=== PATIENT | male | born 1960 | race Caucasian/White ===

== ENCOUNTER 2021-11-11 11:12 | Outpatient (REF) | payer OTHER, SELFPAY | END 2021-11-11 11:13 | disposition home or self-care (01) | LOC: HO.BBR 11:12 | PROVIDERS: PCP Family Medicine; Visit Provider Urology | DX: D45 Polycythemia vera (principal) | CPT/HCPCS: 85018; 99195 ==

== ENCOUNTER 2022-02-03 10:53 | Outpatient (REF) | payer OTHER, SELFPAY | END 2022-02-03 10:54 | disposition home or self-care (01) | LOC: HO.BBR 10:53 | PROVIDERS: Visit Provider Urology | DX: D45 Polycythemia vera (principal) | CPT/HCPCS: 85018; 99195 ==

== ENCOUNTER 2022-05-06 11:01 | Outpatient (REF) | payer OTHER, SELFPAY | END 2022-05-06 11:02 | disposition home or self-care (01) | LOC: HO.BBR 11:01 | PROVIDERS: Visit Provider Urology | DX: D45 Polycythemia vera (principal) | CPT/HCPCS: 85018; 99195 ==

== ENCOUNTER 2022-07-28 10:58 | Outpatient (REF) | payer OTHER, SELFPAY | END 2022-07-28 10:59 | disposition home or self-care (01) | LOC: HO.BBR 10:58 | PROVIDERS: Visit Provider Urology | DX: D45 Polycythemia vera (principal) | CPT/HCPCS: 85014; 85018; 99195 ==

== ENCOUNTER 2022-10-28 11:04 | Outpatient (REF) | payer OTHER, SELFPAY | END 2022-10-28 11:05 | disposition home or self-care (01) | LOC: HO.BBR 11:04 | PROVIDERS: Visit Provider Urology | DX: D45 Polycythemia vera (principal) | CPT/HCPCS: 85014; 85018; 99195 ==

== ENCOUNTER 2023-08-28 09:01 | Outpatient (REF) | payer MEDICARE, SELFPAY | END 2023-08-28 09:02 | disposition home or self-care (01) | LOC: HO.BBR 09:01 | PROVIDERS: PCP Family Medicine; Visit Provider Nurse Practitioner Family | DX: D45 Polycythemia vera (principal) | CPT/HCPCS: 85018; 99195 ==

== ENCOUNTER 2023-11-26 08:51 | Outpatient (REF) | payer MEDICARE, SELFPAY | END 2023-11-26 08:52 | disposition home or self-care (01) | LOC: HO.BBR 08:51 | PROVIDERS: PCP Family Medicine; Visit Provider Nurse Practitioner Family | DX: D45 Polycythemia vera (principal) | CPT/HCPCS: 85014; 85018; 99195 ==

== ENCOUNTER 2024-03-22 09:03 | Outpatient (REF) | payer MEDICARE, SELFPAY | END 2024-03-22 09:04 | disposition home or self-care (01) | LOC: HO.BBR 09:03 | PROVIDERS: PCP Family Medicine; Visit Provider Nurse Practitioner Family | DX: D45 Polycythemia vera (principal) | CPT/HCPCS: 85018 ==

== ENCOUNTER 2024-06-20 09:03 | Outpatient (REF) | payer MEDICARE, SELFPAY | END 2024-06-20 09:04 | disposition home or self-care (01) | LOC: HO.BBR 09:03 | PROVIDERS: PCP Family Medicine; Visit Provider Nurse Practitioner Family | DX: D45 Polycythemia vera (principal) | CPT/HCPCS: 85018 ==

== ENCOUNTER 2024-09-30 09:52 | Outpatient (REF) | payer MEDICARE, SELFPAY ==
--- OUTSIDE RECORDS SUMMARY | 2024-09-30 11:03 | XMS_ITS | Data Portability ---
Author Organization [place] [facility] [place] Address [address] [place] [address] Care Team Providers Care Hearse Driver Name Role Phone BEAU ORDONEZ Referring Provider [phone] BEAU ORDONEZ Primary Care Provider Assessment Encounter Date Assessment Date Assessment LastModified by Organization Details LastModified Time 07/07/2023 07/07/2023 This is a 62-yea r-old male comes in with a 1 week history of right knee pain with going up stairs clinically he is overall unremarkable Differential diagnosis includes the following; 1. Meniscus tear 2. Patellofemoral syndrome 3. 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 I had a lengthy discussion with the patient regarding management which includes rest, nonsteroidal anti-inflammatories, plus or minus physical therapy versus oral glucocorticosteroids versus cortisone injection. Patient opted for the following; 1. Cortisone injection of the right knee. After verbal consent was managed by the patient. The procedure was then carried out on the right knee. He tolerated the procedure well. Aftercare instructions were discussed in detail. I would like to reevaluate him within the next 6 weeks. If his symptoms do not improve or worsen he is instructed to contact my office immediately. We will consider advanced imaging if indicated. He agrees with this plan. Patient was seen and evaluated by Brayan Vicente PA-C in indirect conjuction with Documenting Provider: Maco Grimm MD . He/She agrees with history, physical examination, tests/diagnostic imaging, and treatment plan. Additional treatment plan discussed with the patient (only initiated if in boldface font) otherwise not applicable. Treatment may include the following; - Provider focused nonsteroidal anti-inflammatory regimen (discussed were the pros, cons, benefits and risks as well as any black box warnings) in patients over 60 years old they should be very cautious in taking these medications due to potential decreased kidney function and or elevated blood pressure. - Analgesic pain medication for pain suppression (discussed were the pros, cons, benefits and risks as well as any black box warnings) - The use of topical pain relieving medication were discussed - The use of ice to decrease inflammation and pain - The use of assistive ambulatory devices for ambulation and fall prevention - Formal specific guided physical therapy program I reviewed my findings at length with the patient today. ??We discussed the nature and etiology of this problem along with current treatment options. We discussed the expected course and outcomes and what to expect. We also discussed risks and benefits. ?? All of their questions were answered today, and there was exhibited understanding and comprehension of all that was discussed. Time Spent: 10 minutes were spent reviewing previous imaging and charting. ??10 minutes were spent obtaining patient history. ??5 minutes were spent on physical exam. ??5??minutes were spent explaining diagnosis and assessment. Today's documentation was made using voice recognition software. This note may contain grammatical errors secondary to the software. Not available 07/08/2023 07:53:01 Plan of Treatment Reminders Order Date Submit Date Provider Last Modified By Organization Details Last Modified Time Details Appointments None recorded. Lab None recorded. Referral None recorded. Procedures None recorded. Surgeries None recorded. Imaging None recorded. Medication Orders lidocaine (PF) 100 mg/5 mL (2 %) injection syringe 2022 023 Not available 3 16:08:52 Kenalog 40 mg/mL suspension for injection 2022 023 [facility] [address], [address], [place], [address], 3 07:56:30 lidocaine (PF) 10 mg/mL (1 %) injection solution 2022 023 [facility] [address], [address], [place], [address], 3 07:56:29 Patient TargetsNo targets recorded. Patient Instructions Encounter Date Encounter Id Patient Instructions Last Modified By Organization Details Last Modified Time 07/07/2023 [id number] You have been provided with a cortisone injection in order to reduce the pain and inflammation that you are experiencing. The injection consists of two medications. Cortisone (an anti-inflammatory that will take 48-72 hours to take effect) and Lidocaine (a numbing agent that will last 2-3 hours). Please note that not everyone will have a lasting response following the injection. PATIENT INSTRUCTIONS Once the Lidocaine wears off, you may have an increase in your pain. I recommend icing the affected area for 20 minutes 3-4 times per day. It is recommended that you refrain from any high level activities using the joint or limb that was injected for approximately 24-48 hours. Normal day-to-day activities are generally not a problem. POSSIBLE SIDE EFFECTS Individuals with dark complexions may experience some skin discoloration locally at the site of the injection. There is the possibility of an increase in discomfort within 48 hours following the injection. This is called a ? flare? . To help minimize the chances of this, please see the post-injection instructions above. There is a less than 1% chance of an infection. If you notice any signs of infection (redness, warmth, drainage, fever greater than 100 degrees) please call our office or contact us through the portal [facility]. Not available 07/08/2023 07:56:42 X-ray of the rig ht knee reveals overall well-maintained joint space mild patellofemoral joint space narrowing no acute bony abnormality.. Not available 07/08/2023 07:53:52 Reason for Referral None Reported. Problems Name Problem SNOMED Code Status Onset Date Resolution Date Notes Provider Name and Address Organization Details Recorded Time Patellofemo ral syndrome of right knee 2723920983764 103 Active 2022 BRAYAN VICENTE PA-C [address], [place], [address] [place] [facility] 3 07:54:30 Problem Notes None recorded. Procedures Surgical History Date Name Laterality Status Provider Name and Address Organization Details Recorded Time 07/07/20 23 Knee Joint/Bursa Asp & Inj completed BRAYAN VICENTE PA-C [address], [place], [address], [place] [facility] 07/08/2023 07:57:21 Shoulder Surgery completed [facility] [place] [facility] 07/07/2023 16:11:34 prostatectomy completed [facility] [place] [facility] 07/07/2023 16:11:46 Appendectomy completed [facility] [place] [facility], 07/07/2023 16:12:00 Imaging Results None recorded. Procedure Notes None recorded. Medical Equipment None Reported. Allergies No known drug allergies Medications Name Sig Start Date Stop Date Status Note LastModified by Organization Details LastModified Time fluorouraci l 5 % topical cream 07/07 completed Not Available Not Available Not Available Kenalog 40 mg/mL suspension for injection Take 1 mL by injection route. 2022 active Not Available Not Available Not Avai lable oxycodone-a cetaminophe n 5 mg-325 mg tablet 07/07 completed Not Available Not Available Not Available trazodone 100 mg tablet 2022 active Not Available Not Available Not Avai lable mupirocin 2 % topical ointment 07/07 completed Not Available Not Available Not Available lorazepam 1 mg tablet active Not Available Not Available No t Available testosteron e cypionate 200 mg/mL intramuscul ar oil active Not Available Not Available Not Available albuterol sulfate HFA 90 mcg/actuati on aerosol inhaler active Not Available Not Available Not Available fluoxetine 20 mg capsule active Not Available Not Available Not Available aripiprazol e 10 mg tablet active Not Available Not Available Not Available emtricitabi ne 200 mg-tenofovi r disoproxil fumarate 300 mg tablet Take 1 tablet orally once a day active Not Available Not Available No t Available lidocaine (PF) 10 mg/mL (1 %) injection solution Take 2 mL by injection route. 2022 active Not Available Not Available Not Avai lable lidocaine (PF) 100 mg/5 mL (2 %) injection syringe Take 2 mL by injection route. 07/07 completed Not Available Not Available Not Available Vitals Date Recorded Body height Body mass index (BMI) Body weight Provider Name and Address Organization Details Last Updated DateTime 07/07/2023 193.04 cm 26.8 kg/m2 93984.[address] [place] [facility] 07/07/2023 16:09:47 Social History Question Answer Notes LastModified by Organizat ion Details LastModified Time Tobacco Smoking Status Never Smoker Parris Royal null, [place] [facility] 07/07/2023 16:09:58 What Is Your Level Of Alcohol Consumption? None Information not available 07/07/2023 Do You Use Any Illicit Or Recreational Drugs? No Information not available 07/07/2023 Do You Or Have You Ever Used Any Other Forms Of Tobacco Or Nicotine? No Information not available 07/07/2023 Sex: Unknown Functional Status None recorded. Mental Status None recorded. Family History Relationship Description Onset Age of this Age Resolved Age Notes LastModified by Organization Details LastModified Time Mother Arthritis Not available 07/07/2023 16:10:58 Mother Atrial fibrillation Not available 16:11:10 Brother Hypercholest erolemia Not available 2022 16:11:18 Medical History Condition Response Cancer Y Past Encounters Encounter ID Performer Location Encounter Start Date Encounter Closed Date Diagnosis/Indication Diagnosis SNOMED-CT Code Diagnosis ICD10 Code Diagnosis Note [id number] Maco Grimm MD [address] [address] 07/07/2023 14:32:38 07/07/2023 15:13:58 Pain of right knee joint 0617043414 90131 M25.561 Osteoarthr itis of right knee joint 7225368216 93077 M17.11 Patellofem oral syndrome of right knee 5977498502 284151 M22.2X1 Health Concerns Section Related Observation LastModified by Organization Detai ls LastModified Time None Recorded Concern Status LastModified by Organization Details LastModified Time None Recorded Advance Directives Directive None Recorded Payers Encounter Date Sequence Insurance Name Policy Number Policy David Covered Member ID David Member ID Guarantor Name 07/07/[address] [place] [address] ([facility]) [id number] 1 Benigno Conde [id number] Benigno Conde Notes Date Note Type Note Provider Name and Address Organization Details Recorded Time 07/07/2023 text/html This is a [facility] 62-year-old male here for evaluation of right knee pain onset of symptoms within the last 7 days. He states going up stairs is more painful for which she describes underneath his kneecap. He denies any trauma denies any twisting injury here for evaluation and treatment. States has been taking [id number] pain medication with minimal relief. He denies any swelling denies any redness denies any fevers or chills or instability symptoms. He also denies any calf pain. X-ray of the right knee reveals overall well-maintained joint space mild patellofemoral joint space narrowing no acute bony abnormality.. BRAYAN VICENTE PA-C [address] [place] [address],[facility] [address], [place], [address], [place] [facility] 07/08/2023 07:57:48
--- OUTSIDE RECORDS SUMMARY | 2024-09-30 11:04 | XMS_ITS | Data Portability ---
Author Organization [facility], Main Office Address [address] [facility] [address] [place] [id number] Care Team Providers Care Interior Assemblies Installer Name Role Phone SANTOS ORDONEZ Primary Care Provider KADEN VERDUZCO Urologist [phone] NEWTON WARD Zigzag Appliquer [phone] GISSELL JUAREZ Psychiatrist [phone] DAVE VILLANUEVA Mold Release Worker MARY BHARDWAJ Internet Researcher Assessment Encounter Date Assessment Date Assessment LastModified by Organization Details LastModified Time 06/12/2023 06/12/2023 I have requested our office staff to schedule an echocardiogram for Benigno. Additionally, I have ordered a 14-day ZIO XT Holter monitor for him. His upcoming cardiology appointment on Thursday is reassuring. Benigno's use of testosterone may increase his risk for obstructive sleep apnea (SUNITHA), so I have also referred him to a sleep medicine specialist. We discussed the red flags that would warrant a visit to the nearest emergency room. [email or web address] Not available 06/12/2023 17:28:30 09/14/2023 09/14/2023 Gets truvada online with Mister [email or web address] Not available 09/14/2023 15:27:27 02/01/2024 02/01/2024 This service was provided using telemedicine. Patient consented to video & audio visit Patient was located in the [facility]. Provider was located in the office. No other persons participated in the telemedicine visit except for the patient unless otherwise indicated here. {{}} Total time of visit was 15 minutes. [email or web address] Not available 02/01/2024 18:48:00 Plan of Treatment Reminders Order Date Submit Date Provider Last Modified By Organization Details Last Modified Time Details Appointments [id number] 2024 01:30P M Santos Ordonez MD Not available Not available Not available Lab BMP, serum or plasma 2023 MAYKEL [facility] (Centralized Electronic Ordering - All Locations), Patient Can Go To The Location Of Their Choice, [id number] 11/03/2023 08:08:46 lipid panel, serum 2023 024 MAYKEL [facility], [address], [place], [address], 09/15/2023 15:56:55 TSH, serum or plasma 2023 024 MAYKEL [facility], [address], [address], [place], [address], 09/15/2023 16:35:54 CBC w/ auto diff 2023 024 MAYKEL [facility], [address], [address], [place], [address], 09/15/2023 16:05:33 CMP, serum or plasma 2023 024 MAYKEL [facility], [address], [address], [place], [address], 09/15/2023 15:56:52 magnesium , serum or plasma 2023 024 [facility], [address], [address], [place], [address], 09/15/2023 15:56:56 pro BNP (pro B-type natriuret ic peptide), serum or plasma 2022 023 MAYKEL [facility], [address], [address], [place], [address], 06/05/2023 18:58:36 D-dimer, quant, plasma 2022 023 [facility], [address] [facility], [facility], [place], [address], 06/05/2023 15:13:42 Referral sleep medicine referral 2022 023 [email or web address], [address], [place], [address], 06/29/2023 11:23:01 Procedures None recorded. Surgeries None recorded. Imaging XR, chest, 2 view 2023 024 [facility] (Ct Scan), [address] [place], [address], 09/14/2023 16:34:31 holter monitor [email or web address] (Outt Non-Invasive Cardiology Scheduling), [address] [place], [address], 07/22/2023 13:19:07 US, echocardi ogram 2022 023 MAYKEL Not available 08/20/2023 12:08:28 XR, chest, 2 view 2022 023 [facility] (Ct Scan), [address] [place], [address], 06/05/2023 13:00:13 electroca rdiogram 2022 023 [email or web address] In-Office Order, Internal Use Only DO Not Attach Compendium DO Not Attach Compendium, Do Not Delete/merge, [id number] 06/05/2023 12:07:57 exercise stress test - dyspnea on exertion, r/o cardiac ischemic disease. 2022 023 [facility] (Outt Non-Invasive Cardiology Scheduling), [address] [place], [address], 07/02/2023 10:40:12 Medication Orders valsartan 40 mg tablet 2023 024 [facility], [address] [place], [address], 11/02/2023 14:00:39 albuterol sulfate HFA 90 mcg/actua tion aerosol inhaler 2023 [facility], [address] [place], [address], 09/14/2023 16:27:57 valsartan 40 mg tablet 2023 [facility], [address] [place], [address], 09/14/2023 15:52:35 Patient TargetsNo targets recorded. Patient Instructions Encounter Date Encounter Id Patient Instructions Last Modified By Organization Details Last Modified Time 06/12/2023 [id number] At [facility] follow up visit, all current and discharge medications (OTC, herbal therapies, supplements) reviewed and reconciled with patient and or caregiver, including potential side effects, drug interactions, instructions, and the consequences of not taking medication. Reviewed potential barriers to medication adherence, such as side effects from medication or cost of medication. [email or web address] Not available 06/12/2023 15:07:09 09/14/2023 [id number] medical record request* [email or web address] Not available 09/21/2023 10:09:39 Well Visit 50 to 65: Care Instructions [email or web address] Not available 09/14/2023 15:32:05 preventing falls: care instructions [email or web address] Not available 09/14/2023 15:32:05 medicare preventive services guide (male 74 rs and under) [email or web address] Not available 09/14/2023 15:32:05 controlling your asthma: care instructions [email or web address] Not available 09/14/2023 15:32:05 learning about asthma ckokar Not available 09/14/2023 15:32:05 high blood pressure: care instructions [email or web address] Not available 09/14/2023 15:32:05 learning about high blood pressure ckokar Not available 09/14/2023 15:32:05 When You Want to Lose Weight: Care Instructions [email or web address] Not available 09/14/2023 15:32:05 11/02/2023 [id number] advance care planning: care instructions [email or web address] Not available 11/02/2023 14:01:53 high blood pressure: care instructions [email or web address] Not available 11/02/2023 14:00:36 learning about high blood pressure ckokar Not available 11/02/2023 14:00:36 02/01/2024 [id number] high blood pressure: care instructions [email or web address] Not available 02/01/2024 18:47:44 learning about high blood pressure [email or web address] Not available 02/01/2024 18:47:44 Reason for Referral Sleep Medicine Referral for Snoring Referring Physician: Santos Ordonez, Family Medicine, Encounter Date: 06/12/2023 Results Created Date Observation Date Name Description Value Unit Range Abnormal Flag Note LastModifiedBy Organization Detail LastModifiedTime 05/08/2005/08/2023 COMPL ETE BLOOD COUNT WBC 6.2 K/mm3 (4.0-1 1.0) Not Available [facility] (Centralized Electronic Ordering - All Locations) Patient Can Go To The Location Of Their Choice, [facility][note 2] 05/08/2023 16:18:06 05/08/2005/08/2023 COMPL ETE BLOOD COUNT RBC 5.61 M/mm3 (4.70- 6.10) Not Available [facility] (Centralized Electronic Ordering - All Locations) Patient Can Go To The Location Of Their Choice, [facility] [place][note 2] 05/08/2023 16:18:06 05/08/2005/08/2023 COMPL ETE BLOOD COUNT HGB 15.9 gm/dL (13.7- 17.1) Not Available [facility] (Centralized Electronic Ordering - All Locations) Patient Can Go To The Location Of Their Choice, [id number] 05/08/2023 16:18:06 05/08/2005/08/2023 COMPL ETE BLOOD COUNT HCT 49.1 % (40.5- 50.0) Not Available [facility] (Centralized Electronic Ordering - All Locations) Patient Can Go To The Location Of Their Choice, [facility] [place][note 2] 05/08/2023 16:18:06 05/08/2005/08/2023 COMPL ETE BLOOD COUNT MCV 87.5 fL (80.0- 94.0) Not Available [facility] (Centralized Electronic Ordering - All Locations) Patient Can Go To The Location Of Their Choice, 05/08/2023 16:18:06 05/08/2005/08/2023 COMPL ETE BLOOD COUNT MCH 28.3 pg (27.0- 34.0) Not Available [facility] (Centralized Electronic Ordering - All Locations) Patient Can Go To The Location Of Their Choice, 05/08/2023 16:18:06 05/08/2005/08/2023 COMPL ETE BLOOD COUNT MCHC 32.4 g/dL (33.0- 37.0) low Not Available [facility] (Centralized Electronic Ordering - All Locations) Patient Can Go To The Location Of Their Choice, 05/08/2023 16:18:06 05/08/2005/08/2023 COMPL ETE BLOOD COUNT plt 176 K/mm3 (150-4 60) Not Available [facility] (Centralized Electronic Ordering - All Locations) Patient Can Go To The Location Of Their Choice, 05/08/2023 16:18:06 05/08/2005/08/2023 COMPL ETE BLOOD COUNT RDW-SD 44.8 fL (<47.0 ) Not Available [facility] (Centralized Electronic Ordering - All Locations) Patient Can Go To The Location Of Their Choice, 05/08/2023 16:18:06 05/08/2005/08/2023 COMPL ETE BLOOD COUNT MPV 10.5 fL (9.4-1 2.4) Not Available [facility] (Centralized Electronic Ordering - All Locations) Patient Can Go To The Location Of Their Choice, 05/08/2023 16:18:06 05/08/2005/08/2023 COMPL ETE BLOOD COUNT automated NRBC 0.0 #/100 _WBC' s Not Available [facility] (Centralized Electronic Ordering - All Locations) Patient Can Go To The Location Of Their Choice, 05/08/2023 16:18:06 05/08/2005/08/2023 COMPL ETE BLOOD COUNT abs. NRBC 0.0 K/mm3 Not Available [facility] (Centralized Electronic Ordering - All Locations) Patient Can Go To The Location Of Their Choice, 05/08/2023 16:18:06 05/08/2005/08/2023 COMPR EHENS JOSE EDUARDO METAB OLIC PANL glucose 88 mg/dL (70-99 ) Not Available [facility] (Centralized Electronic Ordering - All Locations) Patient Can Go To The Location Of Their Choice, 05/08/2023 17:39:52 05/08/2005/08/2023 COMPR EHENS JOSE EDUARDO METAB OLIC PANL BUN 16 mg/dL (8-23) Not Available [facility] (Centralized Electronic Ordering - All Locations) Patient Can Go To The Location Of Their Choice, 05/08/2023 17:39:52 05/08/2005/08/2023 COMPR EHENS JOSE EDUARDO METAB OLIC PANL creatinine 1.0 mg/dL (0.7-1 .2) Not Available [facility] (Centralized Electronic Ordering - All Locations) Patient Can Go To The Location Of Their Choice, 05/08/2023 17:39:52 05/08/2005/08/2023 COMPR EHENS JOSE EDUARDO METAB OLIC PANL sodium 140 mmol/ L (133-1 45) Not Available [facility] (Centralized Electronic Ordering - All Locations) Patient Can Go To The Location Of Their Choice, 05/08/2023 17:39:52 05/08/2005/08/2023 COMPR EHENS JOSE EDUARDO METAB OLIC PANL potassium 4.6 mmol/ L (3.6-5 .2) Not Available [facility] (Centralized Electronic Ordering - All Locations) Patient Can Go To The Location Of Their Choice, 05/08/2023 17:39:52 05/08/2005/08/2023 COMPR EHENS JOSE EDUARDO METAB OLIC PANL chloride 105 mmol/ L (98-10 7) Not Available [facility] (Centralized Electronic Ordering - All Locations) Patient Can Go To The Location Of Their Choice, 05/08/2023 17:39:52 05/08/2005/08/2023 COMPR EHENS JOSE EDUARDO METAB OLIC PANL bicarbonate 24 mmol/ L (22-29 ) Not Available [facility] (Centralized Electronic Ordering - All Locations) Patient Can Go To The Location Of Their Choice, 05/08/2023 17:39:52 05/08/2005/08/2023 COMPR EHENS JOSE EDUARDO METAB OLIC PANL anion gap 11 (4-17) Not Available [facility] (Centralized Electronic Ordering - All Locations) Patient Can Go To The Location Of Their Choice, 05/08/2023 17:39:52 05/08/2005/08/2023 COMPR EHENS JOSE EDUARDO METAB OLIC PANL albumin 4.6 gm/dL (3.4-4 .8) Not Available [facility] (Centralized Electronic Ordering - All Locations) Patient Can Go To The Location Of Their Choice, 05/08/2023 17:39:52 05/08/2005/08/2023 COMPR EHENS JOSE EDUARDO METAB OLIC PANL calcium 9.0 mg/dL (8.6-1 0.5) Not Available [facility] (Centralized Electronic Ordering - All Locations) Patient Can Go To The Location Of Their Choice, 05/08/2023 17:39:52 05/08/2005/08/2023 COMPR EHENS JOSE EDUARDO METAB OLIC PANL bilirubin,to cori 0.7 mg/dL (0-1.2 ) Not Available [facility] (Centralized Electronic Ordering - All Locations) Patient Can Go To The Location Of Their Choice, 05/08/2023 17:39:52 05/08/2005/08/2023 COMPR EHENS JOSE EDUARDO METAB OLIC PANL total protein 6.7 gm/dL (6.2-8 .2) Not Available [facility] (Centralized Electronic Ordering - All Locations) Patient Can Go To The Location Of Their Choice, 05/08/2023 17:39:52 05/08/2005/08/2023 COMPR EHENS JOSE EDUARDO METAB OLIC PANL Ag ratio 2.2 Not Available [facility] (Centralized Electronic Ordering - All Locations) Patient Can Go To The Location Of Their Choice, 05/08/2023 17:39:52 05/08/2005/08/2023 COMPR EHENS JOSE EDUARDO METAB OLIC PANL AST 25 U/L (0-40) Not Available [facility] (Centralized Electronic Ordering - All Locations) Patient Can Go To The Location Of Their Choice, 05/08/2023 17:39:52 05/08/2005/08/2023 COMPR EHENS JOSE EDUARDO METAB OLIC PANL alk phos 80 U/L (40-12 9) Not Available [facility] (Centralized Electronic Ordering - All Locations) Patient Can Go To The Location Of Their Choice, 05/08/2023 17:39:52 05/08/2005/08/2023 COMPR EHENS JOSE EDUARDO METAB OLIC PANL ALT 23 U/L (0-41) Not Available [facility] (Centralized Electronic Ordering - All Locations) Patient Can Go To The Location Of Their Choice, 05/08/2023 17:39:52 05/08/2005/08/2023 COMPR EHENS JOSE EDUARDO METAB OLIC PANL estimated GFR creatinine 83 mL/mi n/1.7 3_M2 Creat inine based estim ated glome rular filtr ation (eGFR ) in adult s is calcu lated using the Natio nal Kidne y Found ation recom mark d 2020 CKD-E PI equat ion. Estim ates GFR from serum creat inine , age and sex. Not Available [facility] (Centralized Electronic Ordering - All Locations) Patient Can Go To The Location Of Their Choice, 05/08/2023 17:39:52 05/08/2005/08/2023 LIPID PANEL cholesterol, total 153 mg/dL (<200) Not Available [facility] ([facility] Order[facility] - All Locations) Patient Can Go To The Location Of Their Choice, 05/08/2023 17:39:54 05/08/2005/08/2023 LIPID PANEL triglyceride 53 mg/dL (<150) Not Available [facility] ([facility] - [facility] Locations) Patient Can Go To The Location Of Their Choice, 05/08/2023 17:39:54 05/08/2005/08/2023 LIPID PANEL HDL chol 42 mg/dL (>39) Not Available [facility] (Centralized Electronic Ordering - All Locations) Patient Can Go To The Location Of Their Choice, 05/08/2023 17:39:54 05/08/2005/08/2023 LIPID PANEL LDL cholesterol, calculated 100 mg/dL (0-130 ) Not Available [facility] (Centralized Electronic Ordering - All Locations) Patient Can Go To The Location Of Their Choice, 05/08/2023 17:39:54 05/08/2005/08/2023 LIPID PANEL non HDL cholesterol (calc) 111 mg/dL (<160) Not Available [facility] ([facility] Ordering - All Locations) Patient Can Go To The Location Of Their Choice, 05/08/2023 17:39:54 05/08/2005/08/2023 TSH WITH REFLE X TO FT4 TSH 1.37 uIU/m L (0.4-4 .2) Not Available [facility] (Centralized Electronic Ordering - All Locations) Patient Can Go To The Location Of Their Choice, 05/08/2023 17:41:54 05/08/2005/08/2023 COMPL ETE BLOOD COUNT WBC 6.2 K/mm3 (4.0-1 1.0) Not Available [facility] (Centralized Electronic Ordering - All Locations) Patient Can Go To The Location Of Their Choice, 05/08/2023 17:48:19 05/08/2005/08/2023 COMPL ETE BLOOD COUNT RBC 5.61 M/mm3 (4.70- 6.10) Not Available [facility] (Centralized Electronic Ordering - All Locations) Patient Can Go To The Location Of Their Choice, 05/08/2023 17:48:19 05/08/2005/08/2023 COMPL ETE BLOOD COUNT HGB 15.9 gm/dL (13.7- 17.1) Not Available [facility] (Centralized Electronic Ordering - All Locations) Patient Can Go To The Location Of Their Choice, 05/08/2023 17:48:19 05/08/2005/08/2023 COMPL ETE BLOOD COUNT HCT 49.1 % (40.5- 50.0) Not Available [facility] (Centralized Electronic Ordering - All Locations) Patient Can Go To The Location Of Their Choice, 05/08/2023 17:48:19 05/08/2005/08/2023 COMPL ETE BLOOD COUNT MCV 87.5 fL (80.0- 94.0) Not Available [facility] (Centralized Electronic Ordering - All Locations) Patient Can Go To The Location Of Their Choice, 05/08/2023 17:48:19 05/08/2005/08/2023 COMPL ETE BLOOD COUNT MCH 28.3 pg (27.0- 34.0) Not Available [facility] (Centralized Electronic Ordering - All Locations) Patient Can Go To The Location Of Their Choice, 05/08/2023 17:48:19 05/08/2005/08/2023 COMPL ETE BLOOD COUNT MCHC 32.4 g/dL (33.0- 37.0) low Not Available [facility] (Centralized Electronic Ordering - All Locations) Patient Can Go To The Location Of Their Choice, 05/08/2023 17:48:19 05/08/2005/08/2023 COMPL ETE BLOOD COUNT plt 176 K/mm3 (150-4 60) Not Available [facility] (Centralized Electronic Ordering - All Locations) Patient Can Go To The Location Of Their Choice, 05/08/2023 17:48:05/08/2005/08/2023 COMPL ETE BLOOD COUNT RDW-SD 44.8 fL (<47.0 ) Not Available [facility] (Centralized Electronic Ordering - All Locations) Patient Can Go To The Location Of Their Choice, 05/08/2023 17:48:19 05/08/2005/08/2023 COMPL ETE BLOOD COUNT MPV 10.5 fL (9.4-1 2.4) Not Available [facility] ([facility]ized Electronic Ordering - All Locations) Patient Can Go To The Location Of Their Choice, 05/08/2023 17:48:19 05/08/2005/08/2023 COMPL ETE BLOOD COUNT automated NRBC 0.0 #/100 _WBC' s Not Available [facility] ([facility]ized Electronic Ordering - All Locations) Patient Can Go To The Location Of Their Choice, 05/08/2023 17:48:19 05/08/2005/08/2023 COMPL ETE BLOOD COUNT abs. NRBC 0.0 K/mm3 Not Available [facility] ([facility]ized Electronic Ordering - All Locations) Patient Can Go To The Location Of Their Choice, 05/08/2023 17:48:19 05/08/2005/08/2023 BASIC METAB OLIC PANEL glucose 88 mg/dL (70-99 ) Not Available [facility] (Centralized Electronic Ordering - All Locations) Patient Can Go To The Location Of Their Choice, 05/08/2023 18:42:22 05/08/2005/08/2023 BASIC METAB OLIC PANEL BUN 16 mg/dL (8-23) Not Available [facility] (Centralized Electronic Ordering - All Locations) Patient Can Go To The Location Of Their Choice, 05/08/2023 18:42:22 05/08/2005/08/2023 BASIC METAB OLIC PANEL creatinine 1.0 mg/dL (0.7-1 .2) Not Available [facility] ([facility]ized Electronic Ordering - All Locations) Patient Can Go To The Location Of Their Choice, 05/08/2023 18:42:22 05/08/2005/08/2023 BASIC METAB OLIC PANEL sodium 140 mmol/ L (133-1 45) Not Available [facility] (Centralized Electronic Ordering - All Locations) Patient Can Go To The Location Of Their Choice, 05/08/2023 18:42:22 05/08/2005/08/2023 BASIC METAB OLIC PANEL potassium 4.6 mmol/ L (3.6-5 .2) Not Available [facility] ([facility]ized [facility] Ordering - All Locations) Patient Can Go To The Location Of Their Choice, 05/08/2023 18:42:22 05/08/2005/08/2023 BASIC METAB OLIC PANEL chloride 105 mmol/ L (98-10 7) Not Available [facility] ([facility]ized [facility] Ordering - All Locations) Patient Can Go To The Location Of Their Choice, 05/08/2023 18:42:22 05/08/2005/08/2023 BASIC METAB OLIC PANEL bicarbonate 24 mmol/ L (22-29 ) Not Available [facility] ([facility]ized [facility] Ordering - All Locations) Patient Can Go To The Location Of Their Choice, 05/08/2023 18:42:22 05/08/2005/08/2023 BASIC METAB OLIC PANEL anion gap 11 (4-17) Not Available [facility] ([facility]ized [facility] Ordering - All Locations) Patient Can Go To The Location Of Their Choice, 05/08/2023 18:42:22 05/08/2005/08/2023 BASIC METAB OLIC PANEL calcium 9.0 mg/dL (8.6-1 0.5) Not Available [facility] ([facility]ized Electronic Ordering - All Locations) Patient Can Go To The Location Of Their Choice, 05/08/2023 18:42:22 05/08/2005/08/2023 BASIC METAB OLIC PANEL estimated GFR creatinine 83 mL/mi n/1.7 3_M2 Creat inine based estim ated glome rular filtr ation (eGFR ) in adult s is calcu lated using the Natio nal Kidne y Found ation recom mark d 2020 CKD-E PI equat ion. Estim ates GFR from serum creat inine , age and sex. Not Available [facility] (Centralized Electronic Ordering - All Locations) Patient Can Go To The Location Of Their Choice, 05/08/2023 18:42:22 06/05/2006/05/2023 D-DIM ER D-dimer 1.39 mg/L_ feu (<1.01 ) high The manuf actur er recom mends that a d-Dim er value of <0.5 FEU mg/L can be used in conju nctio n with clini danny crite teresa to help exclu de Deep Vein Throm bosis (DVT) and/o r Pulmo nary Embol ism (PE) in patie nts with a low prete st proba bilit y. Not Available [facility] ([facility]ized [facility] Ordering - All Locations) Patient Can Go To The Location Of Their Choice, 06/05/2023 15:13:42 06/05/2006/05/2023 PROBN P pro BNP <36 pg/mL (1-125 ) Not Available [facility] (Centralized Electronic Ordering - All Locations) Patient Can Go To The Location Of Their Choice, 06/05/2023 18:58:36 09/15/19 24 09/15/2023 COMPR EHENS JOSE EDUARDO METAB OLIC PANL glucose 91 mg/dL (70-99 ) Fasti ng Not Available [facility] ([facility]ized Electronic Ordering - All Locations) Patient Can Go To The Location Of Their Choice, 09/15/2023 15:56:52 09/15/19 24 09/15/2023 COMPR EHENS JOSE EDUARDO METAB OLIC PANL BUN 13 mg/dL (8-23) Not Available [facility] ([facility]ized [facility] Ordering - All Locations) Patient Can Go To The Location Of Their Choice, 09/15/2023 15:56:52 09/15/1909/15/2023 COMPR EHENS JOSE EDUARDO METAB OLIC PANL creatinine 1.1 mg/dL (0.7-1 .2) Not Available [facility] ([facility]ized Electronic Ordering - All Locations) Patient Can Go To The Location Of Their Choice, 09/15/2023 15:56:52 09/15/1909/15/2023 COMPR EHENS JOSE EDUARDO METAB OLIC PANL sodium 141 mmol/ L (133-1 45) Not Available [facility] ([facility]ized Electronic Ordering - All Locations) Patient Can Go To The Location Of Their Choice, 09/15/2023 15:56:52 09/15/1909/15/2023 COMPR EHENS JOSE EDUARDO METAB OLIC PANL potassium 4.0 mmol/ L (3.6-5 .2) Not Available [facility] ([facility]ized Electronic Ordering - All Locations) Patient Can Go To The Location Of Their Choice, 09/15/2023 15:56:52 09/15/1909/15/2023 COMPR EHENS JOSE EDUARDO METAB OLIC PANL chloride 105 mmol/ L (98-10 7) Not Available [facility] ([facility]ized Electronic Ordering - All Locations) Patient Can Go To The Location Of Their Choice, 09/15/2023 15:56:52 09/15/19 24 09/15/2023 COMPR EHENS JOSE EDUARDO METAB OLIC PANL bicarbonate 23 mmol/ L (22-29 ) Not Available [facility] ([facility]ized Electronic Ordering - All Locations) Patient Can Go To The Location Of Their Choice, 09/15/2023 15:56:52 09/15/1909/15/2023 COMPR EHENS JOSE EDUARDO METAB OLIC PANL anion gap 13 (4-17) Not Available [facility] ([facility]ized Electronic Ordering - All Locations) Patient Can Go To The Location Of Their Choice, 09/15/2023 15:56:52 09/15/1909/15/2023 COMPR EHENS JOSE EDUARDO METAB OLIC PANL albumin 4.7 gm/dL (3.4-4 .8) Not Available [facility] ([facility]ized Electronic Ordering - All Locations) Patient Can Go To The Location Of Their Choice, 09/15/2023 15:56:52 09/15/1909/15/2023 COMPR EHENS JOSE EDUARDO METAB OLIC PANL calcium 9.0 mg/dL (8.6-1 0.5) Not Available [facility] (Centralized Electronic Ordering - All Locations) Patient Can Go To The Location Of Their Choice, 09/15/2023 15:56:52 09/15/19 24 09/15/2023 COMPR EHENS JOSE EDUARDO METAB OLIC PANL bilirubin,to cori 0.5 mg/dL (0-1.2 ) Not Available [facility] ([facility]ized Electronic Ordering - All Locations) Patient Can Go To The Location Of Their Choice, 09/15/2023 15:56:52 09/15/19 24 09/15/2023 COMPR EHENS JOSE EDUARDO METAB OLIC PANL total protein 6.6 gm/dL (6.2-8 .2) Not Available [facility] ([facility]ized Electronic Ordering - All Locations) Patient Can Go To The Location Of Their Choice, 09/15/2023 15:56:52 09/15/1909/15/2023 COMPR EHENS JOSE EDUARDO METAB OLIC PANL Ag ratio 2.5 Not Available [facility] ([facility]ized [facility] Ordering - All Locations) Patient Can Go To The Location Of Their Choice, 09/15/2023 15:56:52 09/15/1909/15/2023 COMPR EHENS JOSE EDUARDO METAB OLIC PANL AST 26 U/L (0-40) Not Available [facility] ([facility]ized Electronic Ordering - All Locations) Patient Can Go To The Location Of Their Choice, 09/15/2023 15:56:52 09/15/1909/15/2023 COMPR EHENS JOSE EDUARDO METAB OLIC PANL alk phos 80 U/L (40-12 9) Not Available [facility] ([facility]ized Electronic Ordering - All Locations) Patient Can Go To The Location Of Their Choice, 09/15/2023 15:56:52 09/15/19 24 09/15/2023 COMPR EHENS JOSE EDUARDO METAB OLIC PANL ALT 23 U/L (0-41) Not Available [facility] ([facility]ized Electronic Ordering - All Locations) Patient Can Go To The Location Of Their Choice, 09/15/2023 15:56:52 09/15/1909/15/2023 COMPR EHENS JOSE EDUARDO METAB OLIC PANL estimated GFR creatinine 79 mL/mi n/1.7 3_M2 Creat inine based estim ated glome rular filtr ation (eGFR ) in adult s is calcu lated using the Natio nal Kidne y Found ation recom mark d 2020 CKD-E PI equat ion. Estim ates GFR from serum creat inine , age and sex. Not Available [facility] (Centralized Electronic Ordering - All Locations) Patient Can Go To The Location Of Their Choice, 09/15/2023 15:56:52 09/15/1909/15/2023 LIPID PANEL cholesterol, total 165 mg/dL (<200) Not Available [facility] (Centralized Electronic Ordering - All Locations) Patient Can Go To The Location Of Their Choice, 09/15/2023 15:56:54 09/15/1909/15/2023 LIPID PANEL triglyceride 56 mg/dL (<150) Fasti ng Not Available [facility] (Centralized Electronic Ordering - All Locations) Patient Can Go To The Location Of Their Choice, 09/15/2023 15:56:54 09/15/1909/15/2023 LIPID PANEL HDL chol 42 mg/dL (>39) Not Available [facility] (Centralized Electronic Ordering - All Locations) Patient Can Go To The Location Of Their Choice, 09/15/2023 15:56:54 09/15/1909/15/2023 LIPID PANEL LDL cholesterol, calculated 112 mg/dL (0-130 ) Not Available [facility] (Centralized Electronic Ordering - All Locations) Patient Can Go To The Location Of Their Choice, 09/15/2023 15:56:54 09/15/1909/15/2023 LIPID PANEL non HDL cholesterol (calc) 123 mg/dL (<160) Not Available [facility] (Centralized Electronic Ordering - All Locations) Patient Can Go To The Location Of Their Choice, 09/15/2023 15:56:54 09/15/1909/15/2023 MAGNE SIUM magnesium 1.9 mg/dL (1.6-2 .3) Not Available [facility] (Centralized Electronic Ordering - All Locations) Patient Can Go To The Location Of Their Choice, 09/15/2023 15:56:56 09/15/1909/15/2023 COMPL ETE CBC WITH DIFF WBC 5.7 K/mm3 (4.0-1 1.0) Not Available [facility] (Centralized Electronic Ordering - All Locations) Patient Can Go To The Location Of Their Choice, 09/15/2023 16:05:33 09/15/19 24 09/15/2023 COMPL ETE CBC WITH DIFF RBC 5.67 M/mm3 (4.70- 6.10) Not Available [facility] (Centralized Electronic Ordering - All Locations) Patient Can Go To The Location Of Their Choice, 09/15/2023 16:05:09/15/19 24 09/15/2023 COMPL ETE CBC WITH DIFF HGB 16.0 gm/dL (13.7- 17.1) Not Available [facility] (Centralized Electronic Ordering - All Locations) Patient Can Go To The Location Of Their Choice, 09/15/2023 16:05:33 09/15/19 24 09/15/2023 COMPL ETE CBC WITH DIFF HCT 49.7 % (40.5- 50.0) Not Available [facility] (Centralized Electronic Ordering - All Locations) Patient Can Go To The Location Of Their Choice, 09/15/2023 16:05:33 09/15/19 24 09/15/2023 COMPL ETE CBC WITH DIFF MCV 87.7 fL (80.0- 94.0) Not Available [facility] (Centralized Electronic Ordering - All Locations) Patient Can Go To The Location Of Their Choice, 09/15/2023 16:05:33 09/15/19 24 09/15/2023 COMPL ETE CBC WITH DIFF MCH 28.2 pg (27.0- 34.0) Not Available [facility] (Centralized Electronic Ordering - All Locations) Patient Can Go To The Location Of Their Choice, 09/15/2023 16:05:33 09/15/19 24 09/15/2023 COMPL ETE CBC WITH DIFF MCHC 32.2 g/dL (33.0- 37.0) low Not Available [facility] (Centralized Electronic Ordering - All Locations) Patient Can Go To The Location Of Their Choice, 09/15/2023 16:05:09/15/1909/15/2023 COMPL ETE CBC WITH DIFF plt 169 K/mm3 (150-4 60) Not Available [facility] (Centralized Electronic Ordering - All Locations) Patient Can Go To The Location Of Their Choice, 09/15/2023 16:05:09/15/1909/15/2023 COMPL ETE CBC WITH DIFF RDW-SD 43.8 fL (<47.0 ) Not Available [facility] (Centralized Electronic Ordering - All Locations) Patient Can Go To The Location Of Their Choice, 09/15/2023 16:05:09/15/1909/15/2023 COMPL ETE CBC WITH DIFF MPV 10.8 fL (9.4-1 2.4) Not Available [facility] (Centralized Electronic Ordering - All Locations) Patient Can Go To The Location Of Their Choice, 09/15/2023 16:05:09/15/1909/15/2023 COMPL ETE CBC WITH DIFF automated NRBC 0.0 #/100 _WBC' s Not Available [facility] (Centralized Electronic Ordering - All Locations) Patient Can Go To The Location Of Their Choice, 09/15/2023 16:05:09/15/1909/15/2023 COMPL ETE CBC WITH DIFF abs. NRBC 0.0 K/mm3 Not Available [facility] (Centralized Electronic Ordering - All Locations) Patient Can Go To The Location Of Their Choice, 09/15/2023 16:05:09/15/1909/15/2023 COMPL ETE CBC WITH DIFF neut # 4.0 K/mm3 (1.3-7 .0) Not Available [facility] (Centralized Electronic Ordering - All Locations) Patient Can Go To The Location Of Their Choice, 09/15/2023 16:05:09/15/1909/15/2023 COMPL ETE CBC WITH DIFF lymph # 1.3 K/mm3 (0.8-3 .1) Not Available [facility] (Centralized Electronic Ordering - All Locations) Patient Can Go To The Location Of Their Choice, 09/15/2023 16:05:09/15/19 24 09/15/2023 COMPL ETE CBC WITH DIFF mono# 0.3 K/mm3 (0.4-1 .3) low Not Available [facility] (Centralized Electronic Ordering - All Locations) Patient Can Go To The Location Of Their Choice, 09/15/2023 16:05:09/15/19 24 09/15/2023 COMPL ETE CBC WITH DIFF eo # 0.1 K/mm3 (0.0-0 .4) Not Available [facility] (Centralized Electronic Ordering - All Locations) Patient Can Go To The Location Of Their Choice, 09/15/2023 16:05:09/15/1909/15/2023 COMPL ETE CBC WITH DIFF baso # 0.1 K/mm3 (0.0-0 .1) Not Available [facility] (Centralized Electronic Ordering - All Locations) Patient Can Go To The Location Of Their Choice, 09/15/2023 16:05:09/15/1909/15/2023 COMPL ETE CBC WITH DIFF abs. imm gran 0.0 K/mm3 Not Available [facility] (Centralized Electronic Ordering - All Locations) Patient Can Go To The Location Of Their Choice, 09/15/2023 16:05:09/15/1909/15/2023 COMPL ETE CBC WITH DIFF neut 70.1 % (44-76 ) Not Available [facility] (Centralized Electronic Ordering - All Locations) Patient Can Go To The Location Of Their Choice, 09/15/2023 16:05:09/15/1909/15/2023 COMPL ETE CBC WITH DIFF lymph 22.3 % (15-43 ) Not Available [facility] (Centralized Electronic Ordering - All Locations) Patient Can Go To The Location Of Their Choice, 09/15/2023 16:05:09/15/1909/15/2023 COMPL ETE CBC WITH DIFF monocyte 5.4 % (4.5-1 0.5) Not Available [facility] (Centralized Electronic Ordering - All Locations) Patient Can Go To The Location Of Their Choice, 09/15/2023 16:05:09/15/1909/15/2023 COMPL ETE CBC WITH DIFF eo 1.0 % (0-6) Not Available [facility] (Centralized Electronic Ordering - All Locations) Patient Can Go To The Location Of Their Choice, 09/15/2023 16:05:33 09/15/19 24 09/15/2023 COMPL ETE CBC WITH DIFF baso 0.9 % (0-2) Not Available [facility] (Centralized Electronic Ordering - All Locations) Patient Can Go To The Location Of Their Choice, 09/15/2023 16:05:33 09/15/1909/15/2023 COMPL ETE CBC WITH DIFF imm gran 0.3 % Not Available [facility] (Centralized Electronic Ordering - All Locations) Patient Can Go To The Location Of Their Choice, 09/15/2023 16:05:33 09/15/1909/15/2023 TSH WITH REFLE X TO FT4 TSH 1.95 uIU/m L (0.4-4 .2) Not Available [facility] (Centralized Electronic Ordering - All Locations) Patient Can Go To The Location Of Their Choice, 09/15/2023 16:35:54 11/02/19 24 11/03/2023 BASIC METAB OLIC PANEL (8) glucose 97 mg/dL 70-99 Not Available [facility] ([facility]) [address] [place], [address], 11/03/2023 08:08:46 11/02/19 24 11/03/2023 BASIC METAB OLIC PANEL (8) BUN 16 mg/dL 8-27 Not Available [facility] ([facility]) [address] [place], [address], 11/03/2023 08:08:46 11/02/19 24 11/03/2023 BASIC METAB OLIC PANEL (8) creatinine 1.01 mg/dL 0.76-1 .27 Not Available [facility] ([facility]) [address] [place], [address], 11/03/2023 08:08:46 11/02/19 24 11/03/2023 BASIC METAB OLIC PANEL (8) eGFR 83 mL/mi n/1.7 3 >59 Not Available [facility] ([facility]) [address], [place], [address], 11/03/2023 08:08:46 11/02/19 24 11/03/2023 BASIC METAB OLIC PANEL (8) BUN/creatini ne ratio 16 10-24 Not Available [facility] ([facility]) [address] [place], [address], 11/03/2023 08:08:46 11/02/19 24 11/03/2023 BASIC METAB OLIC PANEL (8) sodium 137 mmol/ L 134-14 4 Not Available [facility] ([facility]) [address], [place], [address], 11/03/2023 08:08:46 11/02/19 24 11/03/2023 BASIC METAB OLIC PANEL (8) potassium 4.1 mmol/ L 3.5-5. 2 Not Available [facility] ([facility]) [address], [place], [address], 11/03/2023 08:08:46 11/02/19 24 11/03/2023 BASIC METAB OLIC PANEL (8) chloride 100 mmol/ L 96-106 Not Available [facility] ([facility]) [address] [facility], [place], [address], 11/03/2023 08:08:46 11/02/19 24 11/03/2023 BASIC METAB OLIC PANEL (8) carbon dioxide, total 22 mmol/ L 20-29 Not Available [facility] ([place] [facility]) [address] [facility] [place], [address], 11/03/2023 08:08:46 11/02/19 24 11/03/2023 BASIC METAB OLIC PANEL (8) calcium 9.3 mg/dL 8.6-10 .2 Not Available [facility] ([place] [facility]) [address] [facility] [place], [address], 11/03/2023 08:08:46 06/05/2006/05/2023 elect ginger ricegr am No observ ation record ed. [email or web address] In-Office Order Internal Use Only DO Not Attach Compendium DO Not Attach Compendium, Do Not Delete/merge, [id number] 06/05/2023 12:07:51 06/05/20 elect ginger diogr am No observ ation record ed. [email or web address] In-Office Order Internal Use Only DO Not Attach Compendium DO Not Attach Compendium, Do Not Delete/merge, [id number] 06/05/2023 11:49:51 06/05/2006/05/2023 XR, chest , 2 view Chest 2 Views Fronta l and Lat Reason : Cough COMPAR YOU: 009. FINDIN GS: LINES AND TUBES: None. LUNGS AND PLEURA : Clear lungs. Normal pulmon samir vascul arity. No pleura l effusi on. No pneumo thorax . HEART, MEDIAS TINUM AND LAURYN: Heart is normal in size. Normal medias tinal and hilar contou r. BONES AND SOFT TISSUE S: No acute abnorm ality. IMPRES MIRIAM: No acute abnorm ality. WSN: [id number] Orderi ng Physic linden: Lauri Keys Dictat ed By: Oswaldo Chisholm MD, V Dictat ed Date/T yokasta: 12:57 p Review ed By: Oswaldo Chisholm MD, V Signed By: Oswaldo Chisholm MD, V Signed Date/T yokasta: 12:57 pm Transc ribed By: MELANIE Transc ribed Date/T yokasta: 12:56 pm Patien t Class: Outpat ient MAYKEL [facility] (Outpt Imaging) [address] [place], [address], 06/05/2023 13:20:35 06/05/20 23 06/05/2023 XR, chest , 2 view No observ ation record ed. [email or web address] [facility] [address] [place], [address], 06/05/2023 13:57:12 06/27/20 23 06/26/2023 exerc ise stres s test No observ ation record ed. [facility] (Outt Non-Invasive Cardiology Scheduling) [address] [place], [address], 07/20/2023 16:26:35 08/20/19 24 08/20/2023 US, echoc ardio gram No observ ation record ed. [facility] [address] [place], [address], 08/24/2023 16:43:40 09/14/19 24 09/14/2023 XR, chest , 2 view Chest 2 Views Fronta l and Lat Reason : asthma COMPAR YOU: 2022 and 009. FINDIN GS: LINES AND TUBES: None. LUNGS AND PLEURA : Clear lungs. Normal pulmon samir vascul arity. No pleura l effusi on. No pneumo thorax . HEART, MEDIAS TINUM AND LAURYN: Heart is normal in size. Normal medias tinal and hilar contou r. BONES AND SOFT TISSUE S: No acute abnorm ality. IMPRES MIRIAM: No acute abnorm ality. WSN: [id number] Orderi ng Physic linden: Breanne Ordonez Dictat ed By: Oswaldo Chisholm MD, V Dictat ed Date/T yokasta: 4:31 pm Review ed By: Oswaldo Chisholm MD, V Signed By: Oswaldo Chisholm MD, V Signed Date/T yokasta: 4:31 pm Transc ribed By: MELANIE Transc ribed Date/T yokasta: 4:30 pm Patien t Class: Outpat ient [facility] (Outpt Imaging) [address] [place], [address], 09/15/2023 18:51:31 09/14/19 24 09/14/2023 XR, chest No observ ation record ed. [email or web address] [facility] [address] [place] [address], [address], 09/21/2023 10:08:45 09/21/19 24 07/16/2023 cassie r monit or No observ ation [facility] ed. [facility] [employer] [address] [phone], [place], [address], 09/21/2023 11:21:33 Result Notes None recorded. Problems Name Problem SNOMED Code Status Onset Date Resolution Date Notes Provider Name and Address Organization Details Recorded Time Acute pharyngi tis 468049162 Completed 200801/31/2014 RECORDED 08/24/19 09 7:30AM BY EROS SANTAMARIA, ERICATI ON/ADDEN DUM Not Available [facility] 4 14:37:14 Alcohol abuse 18591636 Completed 201201/31/2014 IN HIS TEENS; RECORDED 08/23/19 13 1:42AM BY ERIC HINDSATI ON/ADDEN DUM Not Available [facility] 4 14:37:14 Allergic rhinitis 74142782 Completed 200801/31/2014 RECORDED 02/06/20 09 1:08PM BY EROS PERAZA, ERICATI ON/ADDEN DUM Not Available [facility] 4 14:37:14 Disorder of anterior pituitar y 17464168 Completed 201108/27/2022 Santos Ordonez MD [address], [facility] [place], [address] , [facility] 3 12:06:11 Anxiety disorder 335292851 Active 2011 EROS Rincon, [facility] 1 09:05:38 Asthma 365322929 Active 2011 EROS Rincon, [facility] 1 09:05:41 Bipolar I disorder 136326350 Active 2011 EROS Rincon, [facility] 1 09:05:46 Neck pain 73679109 Completed 201108/27/2022 Santos Ordonez MD [address], [place], [address] , [facility] 3 12:06:21 Screenin g for malignan t neoplasm of colon Completed 200801/31/2014 RECORDED 02/06/20 09 1:08PM BY CARRINGTON HEWITT ON/ADDEN DUM Santos Ordonez MD [address], [place], [address] , [facility] 3 12:07:41 Cough 26532839 Completed 200801/31/2014 RECORDED 02/06/20 09 1:08PM BY ERIC HEWITTATI ON/ADDEN DUM Not Available [facility] 4 14:37:14 Depressi ve disorder 39255976 Active 2011 EROS Rincon, [facility] 1 09:05:48 Influenz a vaccine needed 30566221545 06 Completed 200801/31/2014 RECORDED 08/24/19 09 7:29AM BY CARRINGTON BEAVERS ON/ADDEN DUM Not Available [facility] 4 14:37:15 Follow-u p encounte r Completed 201105/21/2021 EROS Rincon, [facility] 1 09:05:59 Infectiv e otitis externa 73402651 Completed 200801/31/2014 RECORDED 02/06/20 09 1:08PM BY CARRINGTON HEWITT ON/ADDEN DUM Not Available [facility] 4 14:37:15 Injury of knee 589979995 Completed 201105/21/2021 EROS Rincon, [facility] 1 09:06:12 Malaise and fatigue 948534865 Completed 200801/31/2014 RECORDED 02/06/20 09 1:08PM BY EROS PERAZA, ERICATI ON/ADDEN DUM Not Available [facility] 4 14:37:15 Administ ration of bacteria l and viral vaccine Completed 200801/31/2014 RECORDED 08/24/19 09 8:18AM BY EROS SANTAMARIA, OFFICE VISIT Not Available [facility] 4 14:37:15 Palpitat ions 93169060 Completed 200801/31/2014 RECORDED 03/28/20 09 8:45AM BY EROS PERAZA, ERICATI ON/ADDEN DUM Not Available [facility] 4 14:37:15 Eruption 020870174 Completed 200801/31/2014 RECORDED 10/27/19 09 11:00AM BY EROS SANTAMARIA, ERICATI ON/ADDEN DUM Not Available [facility] 4 14:37:15 Adult health examinat ion Completed 201108/27/2022 Santos Ordonez MD [address], [place], [address] , [facility] 3 12:05:14 Adult health examinat ion Completed 200801/31/2014 RECORDED 10/27/19 09 11:00AM BY EROS SANTAMARIA, ERICATI ON/ADDEN DUM Santos Ordonez MD [address], [place], [address] , [facility] 3 12:05:14 Screenin g for malignan t neoplasm of colon Completed 201108/27/2022 Santos Ordonez MD [address], [place], [address] , [facility] 3 12:07:41 Syncope and collapse 889575103 Completed 201108/27/2022 Santos Ordonez MD [address], [place], [address] , [facility] 3 12:07:53 Frederick is versicol or 50636450 Completed 201108/27/2022 Santos Ordonez MD [address], [place], [address] , [facility] 3 12:06:36 Sprains and strains of joints and adjacent muscles Completed 200801/31/2014 RECORDED 08/24/19 09 7:30AM BY ERIC BEAVERSATI ON/ADDEN DUM Not Available [facility] 4 14:37:16 Acute pharyngi tis 304805652 Completed 200802/27/2014 RECORDED 08/24/19 09 7:30AM BY ERIC BEAVERSATI ON/ADDEN DUM Not Available [facility] 4 05:33:36 Alcohol abuse 98195173 Completed 201202/27/2014 IN HIS TEENS; RECORDED 08/23/19 13 1:42AM BY ERIC HINDSATI ON/ADDEN DUM Not Available [facility] 4 05:33:36 Allergic rhinitis 71403789 Completed 200802/27/2014 RECORDED 02/06/20 09 1:08PM BY ERIC HEWITTATI ON/ADDEN DUM Not Available [facility] 4 05:33:36 Screenin g for malignan t neoplasm of colon Completed 200802/27/2014 RECORDED 02/06/20 09 1:08PM BY CARRINGTON HEWITT ON/ADDEN DUM Santos Ordonez MD [address], [place], [address] , [facility] 3 12:07:41 Cough 13465682 Completed 200802/27/2014 RECORDED 02/06/20 09 1:08PM BY ERIC HEWITTATI ON/ADDEN DUM Not Available [facility] 4 05:33:36 Influenz a vaccine needed 57501096058 06 Completed 200802/27/2014 RECORDED 08/24/19 09 7:29AM BY ERIC BEAVERSATI ON/ADDEN DUM Not Available [facility] 4 05:33:36 Infectiv e otitis externa 56451794 Completed 200802/27/2014 RECORDED 02/06/20 09 1:08PM BY ERIC HEWITTATI ON/ADDEN DUM Not Available [facility] 4 05:33:36 Malaise and fatigue 534143920 Completed 200802/27/2014 RECORDED 02/06/20 09 1:08PM BY ERIC HEWITTATI ON/ADDEN DUM Not Available [facility] 4 05:33:36 Administ ration of bacteria l and viral vaccine Completed 200802/27/2014 RECORDED 08/24/19 09 8:18AM BY EROS SANTAMARIA, OFFICE VISIT Not Available [facility] 4 05:33:36 Palpitat ions 44388217 Completed 200802/27/2014 RECORDED 03/28/20 09 8:45AM BY ERIC HEWITTATI ON/ADDEN DUM Not Available [facility] 4 05:33:36 Eruption 994200555 Completed 200802/27/2014 RECORDED 10/27/19 09 11:00AM BY ERIC BEAVERSATI ON/ADDEN DUM Not Available [facility] 4 05:33:36 Sprains and strains of joints and adjacent muscles Completed 200802/27/2014 RECORDED 08/24/19 09 7:30AM BY ERIC BEAVERSATI ON/ADDEN DUM Not Available [facility] 4 05:33:36 Primary malignan t neoplasm of prostate 15425503 Completed 201508/27/2022 Santos Ordonez MD [address] [facility] [address], [place], [address] , [facility] 3 12:07:03 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 2022 Santos Ordonez MD [address], [place], [address] , [facility] 3 08:13:52 Family history of malignan t neoplasm of prostate 595862302 Active 2022 Santos Ordonez MD [address] [facility] [address], [place], [address] , [facility] 3 12:07:00 Sinus bradycar geetha 07264004 Active 2022 Rosemary Keys PA-C [address], [place], [address] , [facility] 3 12:10:07 Obstruct jose eduardo sleep apnea syndrome 34895005 Active 2023 Santos Ordonez MD [address], [place], [address] , [facility] 4 13:32:32 Hyperhid rosis 162979860 Active 2023 Santos Ordonez MD [address], [place], [address] , [facility] 4 15:24:19 Ex-smoke r 1520940 Active 2023 Santos Ordonez MD [address], [place], [address] , [facility] 4 15:24:42 Problem Notes None recorded. Procedures Surgical History Date Name Laterality Status Provider Name and Address Organization Details Recorded Time 11/02/19 24 Advanced Care Planning completed Santos Ordonez MD [address], [place], [address], [facility] 11/02/2023 14:01:01 08/05/19 23 arthroscopy of shoulder completed Sobia bermudez [place] [facility] 08/27/2022 11:43:17 09/21/19 21 Colonoscopy completed Amandasarah Faith [facility] 07/02/2021 13:58:26 07/20/19 20 implantation of penile prosthesis completed Santos Ordonez MD [address], [place], [address], [facility] 05/21/2021 09:32:13 07/20/19 19 Prostatectomy (turp) completed Sobia bermudez [place] [facility] 06/25/2021 13:48:07 07/20/19 19 Cancer Surgery completed Sobia bermudez [place] [facility] 06/25/2021 13:47:11 07/20/19 10 Appendectomy completed Sobia bermudez MA [facility] 06/25/2021 13:47:10 07/20/18 64 tonsillectomy completed Sobia bermudez [place] [facility] 05/21/2021 09:21:51 arthroscopy of shoulder completed Sobia bermudez [place] [facility] 05/21/2021 09:20:58 Knee arthroscopy/surge ry completed Sobia bermudez [place] [facility] 05/21/2021 09:21:37 Imaging Results Imaging Date Name Status LastModified by Organization Details LastModified Time 06/05/2023 electrocardiogram completed [email or web address] In-Offi ce Order Internal Use Only DO Not Attach Compendium DO Not Attach Compendium, Do Not Delete/merge, [id number] 06/05/2023 12:07:51 06/05/2023 electrocardiogram completed [email or web address] In-Offi ce Order Internal Use Only DO Not Attach Compendium DO Not Attach Compendium, Do Not Delete/merge, [id number] 06/05/2023 11:49:51 06/05/2023 XR, chest, 2 view completed [facility] (Outpt Imaging) [address] [place], [address], 06/05/2023 13:20:35 06/05/2023 XR, [facility], 2 [email or web address] [address] [place], [address], 06/05/2023 13:57:12 06/26/2023 exercise stress test completed [facility] (Outt Non-Invasive Cardiology Scheduling) [address] [place], [address], 07/20/2023 16:26:35 08/20/2023 US, echocardiogram completed [facility] [address] [place], [address], 08/24/2023 16:43:40 09/14/2023 XR, chest, 2 view completed [facility] (Outpt Imaging) [address] [place], [address], 09/15/2023 18:51:31 09/14/2023 XR, chest completed [address] [place], [address], 09/21/2023 10:08:45 07/16/2023 holter monitor completed [facility] [employer] [address] [phone], [place], [address], 09/21/2023 11:21:33 Procedure Notes None recorded. Medical Equipment None Reported. Allergies Allergen ID Allergen Name Allergen Category Reaction Reaction Severity Criticality Documentation Date Start Date Code Code System Note Provider Name and Address Organization Details Recorded Time 25525 No known allergy (situatio n) Not available Not available Not available Not available 02/04/2021 [id number] [id number] SNOMED EROS Guy, [place] - [facility] 09:03:49 No known drug allergies Medications Name Sig Start Date Stop Date Status Note LastModified by Organization Details LastModified Time celecoxib 200 mg capsule TWO TIMES DAILY 04/25 completed RECORDED 04/25/20 11 1:39PM BY ANUSHA IVERSON RN, PHONE ENCOUNTE R;PER PT NO LONGER TAKING Not Available Not Available Not Available cyclobenz aprine 10 mg tablet TID/PRN 02/12 completed RECORDED 03/09/20 09 10:34AM BY MANJULA HOPSON MD, MEDICATI ON AUTO-ZANDRA CTIVATIO N; Not Available Not Available Not Available lamotrigi ne 200 mg tablet Take 1 tablet every day by oral route. 05/21 completed Not Available Not Available Not Available citalopra m 40 mg tablet DAILY 01/10 completed RECORDED 01/11/20 10 1:24PM BY ALICJA DELAROSA, OFFICE VISIT; Not Available Not Available Not Available Cortispor in 3.5 mg/mL-10, 000 unit/mL-1 % ear drops,mikael headley L EAR 06/16 completed RECORDED 08/18/19 08 7:29PM BY LINDA MARTINEZ, MEDICATI ON AUTO-ZANDRA CTIVATIO N; Not Available Not Available Not Available fluoroura cil 5 % topical cream apply to affected area as needed 06/12 completed Not Available Not Available Not Available clonazepa m 1 mg tablet TAKE 1 TABLET BY MOUTH TWICE A DAY NEEDED 01/25 completed Not Available Not Available Not Available Wellbutri n SR 150 mg tablet, 12 hr sustained -release TWO TIMES DAILY active RECORDED 07/22/19 12 1:14PM BY MANJULA HOPSON MD, ANNOTATI ON/ADDEN DUM; Not Available Not Available Not Available divalproe x 500 mg tablet,de layed release active RECORDED 07/22/19 12 1:14PM BY MANJULA HOPSON MD, ANNOTATI ON/ADDEN DUM;1500 AT BEDTIME Not Available Not Available Not Available Westcort 0.2 % topical cream BID 12/07 completed RECORDED 12/23/19 07 11:38AM BY LINDA MARTINEZ, MEDICATI ON AUTO-ZANDRA CTIVATIO N; Not Available Not Available Not Available lithium carbonate ER 450 mg tablet,ex tended release Take 1 tablet every day by oral route. 05/21 completed Not Available Not Available Not Available lamotrigi ne 25 mg tablet active RECORDED 02/28/20 10 4:34PM BY MANJULA HOPSON MD, ANNOTATI ON/ADDEN DUM; Not Available Not Available Not Available oxycodone -acetamin ophen 5 mg-325 mg tablet 08/27 completed Not Available Not Available Not Available trazodone 100 mg tablet Take 1 tablet every day by oral route at bedtime. 05/08 completed Not Available Not Available Not Available ibuprofen 400 mg tablet TID 12/30 completed RECORDED 02/16/20 07 1:47PM BY LINDA MARTINEZ, MEDICATI ON AUTO-ZANDRA CTIVATIO N; Not Available Not Available Not Available Drysol Dab-O-Mat ic 20 % topical solution Apply 1 applicat ion every day by topical route at bedtime for 90 days. 2020 active Not Available Not Available Not Avai lable mupirocin 2 % topical ointment 05/08 completed Not Available Not Available Not Available lorazepam 1 mg tablet Take 1 tablet every day by oral route as needed. active Not Available Not Available No t Available Nasonex 50 mcg/actua tion Mckittrick Q NARES QAM 02/05 completed RECORDED 02/06/20 09 1:47PM BY EROS PERAZA, OFFICE VISIT; Not Available Not Available Not Available testoster one cypionate 200 mg/mL intramusc ular oil INJECT 0.5 ML INTRAMUS CULARLY ONCE A WEEK DIRECTED BY FOR TESTICUL AR HYPOFUNC TION active Not Available Not Available No t Available albuterol sulfate HFA 90 mcg/actua tion aerosol inhaler INHALE TWO PUFFS BY MOUTH EVERY FOUR HOURS NEEDED 2023 active Not Available Not Available Not Avai lable ketoconaz ole 2 % topical cream TWO TIMES DAILY 01/14 completed RECORDED 01/15/20 12 1:04PM BY MANJULA HOPSON MD, [place] ON/ADD DUM; Not Available Not Available Not Available fluoxetin e 20 mg capsule TAKE 1 CAPSULE BY MOUTH EVERY DAY IN THE MORNING active Not Available Not Available No t Available fluticaso ne propionat e 50 mcg/actua tion nasal spray,mikael pension Mckittrick by nasal route. 06/25 completed Not Available Not Available Not Available albuterol (refill) 90 mcg/actua tion aerosol inhaler Q 4 HRS PRN COUGH/WH EEZE 02/05 completed RECORDED 02/06/20 09 1:47PM BY EROS PERAZA, OFFICE VISIT; Not Available Not Available Not Available escitalop gila 10 mg tablet DAILY 02/09 completed RECORDED 02/27/20 10 9:04AM BY BALTAZAR HINDS ON AUTO-ZANDRA CTIVATIO N;TAKE 1 DAILY FOR 1 WEEK THEN 2 DAILY Not Available Not Available Not Available escitalop gila 20 mg tablet QD active RECORDED 01/15/20 11 1:18PM BY MANJULA HOPSON MD, [place] ON/ADD DUM; Not Available Not Available Not Available valsartan 40 mg tablet TAKE ONE TABLET BY MOUTH IN THE EVENING 2024 active Not Available Not Available Not Avai lable aripipraz ole 10 mg tablet TAKE 1 TABLET EVERY MORNING active Not Available Not Available No t Available divalproe x ER 250 mg tablet,ex tended release 24 hr DAILY 02/05 completed RECORDED 02/06/20 09 1:47PM BY EROS PERAZA, OFFICE VISIT;3 IN AM AND 2 IN PM Not Available Not Available Not Available Wellbutri n XL 150 mg 24 hr tablet, extended release QD active RECORDED 01/15/20 11 1:18PM BY MANJULA HOPSON MD, [place] ON/ADD DUM; Not Available Not Available Not Available Wellbutri n XL 300 mg 24 hr tablet, extended release DAILY IN THE MORNING 2008 active RECORDED 04/25/20 09 8:55AM BY MANJULA HOPSON MD, [place] ON/ADDEN DUM; Not Available Not Available Not Available tadalafil 20 mg tablet PRN 04/25 completed RECORDED 09/29/19 14 4:52PM BY MANJULA HOPSON MD, MEDICATI ON AUTO-ZANDRA CTIVATIO N; Not Available Not Available Not Available topiramat e 50 mg tablet DAILY 02/27 completed RECORDED 02/28/20 10 4:05PM BY EROS KERR, OFFICE VISIT; Not Available Not Available Not Available emtricita bine 200 mg-tenofo vir disoproxi l fumarate 300 mg tablet Take 1 tablet every day by oral route for 30 days. 2023 active TRUVADA Not Available Not Available Not Avai lable Cymbalta 60 mg capsule,d elayed release Take 1 capsule every day by oral route. 05/21 completed Not Available Not Available Not Available Adderall XR (20mg) DAILY active RECORDED 07/22/19 12 1:14PM BY MANJULA HOPSON MD, ANNOTATI ON/ADDEN DUM; Not Available Not Available Not Available atomoxeti ne 80 mg capsule DAILY active RECORDED 07/22/19 12 1:15PM BY MANJULA HOPSON MD, ANNOTATI ON/ADDEN DUM; Not Available Not Available Not Available Gavilyte- C 240 gram-22.7 2 gram-6.72 gram-5.84 gram oral solution DRINK 1 GLASS EVERY 15 30 MINUTES UNTIL FINISHED 05/21 completed Not Available Not Available Not Available Vitals Date Recorded Body height Body mass index (BMI) Body weight Heart rate Oxygen saturation Oxygen saturation in Arterial blood by Pulse oximetry Body temperature Systolic blood pressure Diastolic blood pressure Provider Name and Address Organization Details Last Updated DateTime 3 190.5 cm 27.5 kg/m2 17148.3 2 g 54 /min 99 % 99 % 99 [degF] 130 mm[Hg] 80 mm[Hg] Perla Silverman LPN [facility] 3 11:26:57 Date Recorded Body height Body mass index (BMI) Body weight Heart rate Oxygen saturation Oxygen saturation in Arterial blood by Pulse oximetry Body temperature Systolic blood pressure Diastolic blood pressure Provider Name and Address Organization Details Last Updated DateTime 3 190.5 cm 27.5 kg/m2 88061.3 2 g 69 /min 96 % 96 % 97.5 [degF] 156 mm[Hg] 89 mm[Hg] Debra Roberts MA [facility] 3 15:13:03 Date Recorded Systolic blood pressure Diastolic blood pressure Provider Name and Address Organization Details Last Updated DateTime 06/12/2023 122 mm[Hg] 73 mm[Hg] Fabienne Sierra MA [facility] 06/12/2023 15:44:00 Date Recorded Body height Body mass index (BMI) Body weight Heart rate Oxygen saturation Oxygen saturation in Arterial blood by Pulse oximetry Body temperature Systolic blood pressure Diastolic blood pressure Provider Name and Address Organization Details Last Updated DateTime 4 190.5 cm 28.2 kg/m2 323136. 88 g 66 /min 97 % 97 % 98.2 [degF] 145 mm[Hg] 74 mm[Hg] Sobia eddy MA [facility] 4 15:04:24 Date Recorded Body height Body mass index (BMI) Body weight Heart rate Oxygen saturation Oxygen saturation in Arterial blood by Pulse oximetry Body temperature Systolic blood pressure Diastolic blood pressure Provider Name and Address Organization Details Last Updated DateTime 4 190.5 cm 27.6 kg/m2 969684. 91 g 66 /min 98 % 98 % 98.1 [degF] 120 mm[Hg] 75 mm[Hg] Keshia Rodriguez MA [facility] 4 13:47:39 Date Recorded Body height Provider Name an d Address Organization Details Last Updated DateTime 02/01/2024 190.5 cm Sobia Schilling MA [facility] 02/01/2024 15:47:02 Social History Question Answer Notes LastModified by Organizat ion Details LastModified Time Tobacco Smoking Status Former Smoker EROS Izquierdo [facility] 05/21/2021 09:19:37 Do You Have An Advance Directive? Yes [email or web address] Information not available 06/25/2021 What Is Your Level Of Alcohol Consumption? None Information not available 05/21/2021 Is Blood Transfusion Acceptable In An Emergency? Yes Information not available 06/25/2021 What Is Your Level Of Caffeine Consumption? Moderate 1 Cup Of Coffee Daily Information not available 09/14/2023 How Much Tobacco Do You Chew? None Information not available 06/25/2021 Are You Currently Employed? No Information not available 05/21/2021 What Type Of Diet Are You Following? 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 16+yearssince lastcigarette Information not available 05/21/2021 Live Alone Or With Others? Alone Information not available 06/25/2021 Do You Take Precautions To Prevent Distracted Driving? Yes Information not available 05/21/2021 How Often Do You Need To Have Someone Help You When You Read Instructions, Pamphlets, Or Other Written Material From Your Doctor Or Pharmacy? Never Information not available 05/21/2021 Have You Served In The ? No Information not available 05/21/2021 Have You Or Anyone In Your Household Had Any Of The Following Symptoms In The Last 14 Days: Sore Throat, Cough, Chills, Body Aches For Unknown Reasons, Shortness Of Breath For Unknown Reasons, Loss Of Smell, Loss Of Taste, Fever At Or Greater Than 100 Degrees Fahrenheit? No Information not available 05/21/2021 Are You Or Anyone In Your Household A Health Care Provider Or Emergency Responder? No Information not available 05/21/2021 To The Best Of Your Knowledge Have You Been In Close Proximity To Any Individual Who Tested Positive For COVID-19? No Information not available 05/21/2021 Have You Recently Traveled To A COVID-19 High Risk Area Or Gathering In The Last 10 Days? No Information not available 05/21/2021 How Many Children Do You Have? 0 Information not available 05/21/2021 What Is Your Current Pack Years? 10packyears Information not available 08/27/2022 Do You Use Protection During Sex? Always Information not available 06/25/2021 Seat Belts Used Routinely Yes Information not available 06/25/2021 Are You Sexually Active? Yes Information not available 06/25/2021 Smoke Alarm In Home Yes Information not available 06/25/2021 At What Age Did You Start Smoking Tobacco? 16 Information not available 06/25/2021 Are You Passively Exposed To Smoke? No Information not available 05/21/2021 Do You Or Have You Ever Used Smokeless Tobacco? Never Used Smokeless Tobacco Information not available 06/25/2021 Do You Use Any Illicit Or Recreational Drugs? No Information not available 06/25/2021 Do You Use Sunscreen Routinely? Yes Information not available 06/25/2021 How Many Years Have You Smoked Tobacco? 13 Information not available 06/25/2021 Do You Or Have You Ever Used Any Other Forms Of Tobacco Or Nicotine? No Information not available 06/25/2021 Sex: Unknown Functional Status Question Answer Note LastModified by Organizat ion Details LastModified Time Are you able to walk? YESWOREST Information not available 06/25/2021 Are you able to care for yourself? Yes Information not available 06/25/2021 What is your exercise level? Moderate daily walking; 5 x week at gym, swimming Information not available 09/14/2023 Mental Status None recorded. Family History Relationship Description Onset Age of this Age Resolved Age Notes LastModified by Organization Details LastModified Time Mother Atrial fibrillation [email or web address] s Not available 06/25/2021 13:47:09 Mother Arthritis [email or web address] s Not available 06/25/2021 13:47:09 Father Alzheimer's disease [email or web address] s Not available 06/25/2021 13:47:09 Father Alcohol abuse [email or web address] s Not available 06/25/2021 13:47:09 Sister Alzheimer's disease [email or web address] s Not available 06/25/2021 13:47:09 Medical History Condition Response Anxiety Disorder Y Vision or Eye Problems Y Cancer Y Seizures/Epilepsy Y Mental Illness Y Depression Y Acne Y Immunizations Vaccine Type Date Status Note Provider Nam e and Address Organization Details Recorded Time zoster recombinant [address] [facility] 06/25/2021 13:59:15 [facility] 13:59:15 COVID-19, mRNA, LNP-S, PF, 30 mcg/0.3 mL dose [address] [facility] 05/21/2021 09:34:55 COVID-19, mRNA, LNP-S, PF, 30 mcg/0.3 mL dose [address] [facility] 05/21/2021 09:35:07 Influenza, split virus, quadrivalent, PF [address] [facility] 06/25/2021 13:59:15 Influenza, MDCK, quadrivalent, PF [address] [facility] 06/25/2021 13:59:15 Influenza, split virus, quadrivalent, PF [address] [facility] 06/25/2021 13:59:15 Influenza, MDCK, quadrivalent, PF [address] [facility] 06/25/2021 13:59:15 Influenza, split virus, quadrivalent, PF 7 completed EROS Izquierdo, [facility] 06/25/2021 13:59:15 COVID-19, mRNA, LNP-S, PF, 30 mcg/0.3 mL dose 1 completed EROS Izquierdo, [facility] 06/25/2021 14:00:04 Influenza, MDCK, quadrivalent, PF 2 completed EROS Izquierdo, [facility] 08/27/2022 11:35:33 Vaccinia, smallpox Mpox vaccine live, PF, SQ or ID injection [address] [facility] 08/27/2022 11:35:33 COVID-19, mRNA, LNP-S, PF, 30 mcg/0.3 mL dose, eva-sucrose [address] [facility] 08/27/2022 11:35:34 COVID-19, mRNA, LNP-S, bivalent, PF, 50 mcg/0.5 mL or 25mcg/0.25 mL dose 2 completed EROS Izquierdo, [facility] 08/27/2022 11:35:34 Influenza, MDCK, quadrivalent, PF 3 completed Perla Silverman [employer] null, [facility] 05/08/2023 08:38:42 COVID-19, mRNA, LNP-S, PF, 50 mcg/0.5 mL 3 completed Perla Caporale, [employer] null, [facility] 05/08/2023 08:38:43 RSV, recombinant, protein subunit RSVpreF, adjuvant reconstituted, 0.5 mL, PF 3 completed EROS Izquierdo, [facility] 09/14/2023 15:00:22 Pneumococcal conjugate PCV20, polysaccharide [id number] conjugate, adjuvant, PF 4 [facility] 15:46:58 Hep B, adult 0 completed Not Available [facility] 06/12/2023 15:07:31 Influenza, split virus, trivalent, preservative 7 completed Not Available [facility] 06/12/2023 15:07:31 Tdap 9 completed Not Available [facility] 06/12/2023 15:07:31 Influenza, split virus, quadrivalent, PF 1 completed Santos Ordonez MD [address], [id number], [facility] 05/21/2021 09:37:15 Tdap 1 completed Santos Ordonez MD [address], [address], [facility] 05/21/2021 09:37:15 Past Encounters Encounter ID Performer Location Encounter Start Date Encounter Closed Date Diagnosis/Indication Diagnosis SNOMED-CT Code Diagnosis ICD10 Code Diagnosis Note [id number] auto[facility]Comm erce [address] [facility] [place] [address] 11/30/2006 00:00:00 [id number] autoEComm erce [address] [facility] [place] [address] 02/15/2007 00:00:00 [id number] autoEComm erce [address] [facility] [place] [address] 06/09/2007 00:00:00 [id number] autoEComm erce [address] [facility] [place] [address] 08/24/2008 00:00:00 [id number] autoEComm erce [address] [facility] [place] [address] 10/26/2008 00:00:00 [id number] autoEComm erce [address] [facility] [place] [address] 02/02/2009 00:00:00 [id number] autoEComm erce [address] [facility] [place] [address] 02/05/2009 00:00:00 [id number] autoEComm erce [address] [facility] [place] [address] 03/10/2009 00:00:00 [id number] autoEComm erce [address] [facility] [place] [address] 03/28/2009 00:00:00 [id number] autoEComm erce [address] [facility] [place] [address] 04/19/2009 00:00:00 [id number] autoEComm erce [address] [facility] [place] [address] 01/10/2010 00:00:00 [id number] autoEComm erce [address] [facility] [place] [address] 01/17/2010 00:00:00 [id number] autoEComm erce [address] [facility] [place] [address] 02/27/2010 00:00:00 [id number] autoEComm erce [address] [facility] [place] [address] 01/14/2011 00:00:00 [id number] autoEComm erce [address] [facility] [place] [address] 07/22/2011 00:00:00 [id number] Santos Ordonez MD Main Office [address] [facility] [address] [place] [address] 05/21/2021 08:50:46 05/21/2021 10:16:22 Adult health examination [id number] Z00.00 Patient was counseled on healthy diet, exercise and nutrition due to Body mass index is 27.1 kg/m??. hx of Prostate CA:Plan: follows urology s/p prostatect jonny. Last Colonoscop y:Date: 05/03/2010 Result: wnlPlan: repeat ordered Vaccines:T dAP: 05/21/21Zos ter: script providedPC V13: not [id number]: not dueInfluen za: 05/21/21Cov id: had 2 Pfizer dose Routine labs today Immunizati on status reviewed. Will screen based on risk factors. Regular dental and ophtho care advised as well as seat belt and sunscreen use. Distracted driving discussed. Medication reconciled . Fatigue 16719685 R53.83 Hyperlipidemia 20114711 E78.5 Hepatitis C screening 41 9282316 Z11.59 Needs infl uenza immunization 336172794 Z23 Administra tion of viral vaccine 55170875 Z23 Patent foramen ovale 204 390292 Q21.1 Near syncope 497274428 R 55 On ROS patient admitted to me he has been light headed. He tells me each time he gets up from sitting he feels light headed. He tells me 1 month ago he passed out hit the left side of his head on the wall, he did not go to ED. He notes he was out only for a few seconds. He has a hx of PFO was followed by cardiology whom he tells me he stopped following as he felt like it was of no concern. Given the recent onset of increase syncopal/p resyncopal episodes, I have placed a cardiology referral and ordered an echo. An office ekg was done which was not concerning . I ask Benigno to hold from talking his clonazapam (takes prn prescribed by psych) and advised him to hydrate. He does not drink etoh, denies drug use. caffeine consumptio n is not excessive. He has a fhx of afib (Mom)Ortho static was negative in the office.He denies any CP or SOB.Given that he did hit his head will start with CT.He denies any trauma to neck or back.Will check labs. TTE ordered. [id number] Santos Ordonez MD Main Office [address] [facility] [address] [facility] [place] [address] 06/25/2021 13:37:41 06/25/2021 14:21:00 Near syncope 921661260 R55 Benigno has opted to monitor sx for now and hold any tx, red flags were discussed. Advised frequent hydration and taking precaution from getting up too quickly. Hyperhidrosis 412005548 R61 [id number] Santos Ordonez MD Main Office [address] [facility] [address] [place] [address] 08/27/2022 11:06:40 08/27/2022 12:23:14 Adult health examination 311439346 Z00.00 Patient was counseled on healthy diet, exercise and nutrition due to Body mass index is 27.7 kg/m??. hx of Prostate CA:Plan: follows urology s/p prostatect jonny. Last Colonoscop y:Date: 09/20/20Resu lt: no polypPlan: repeat 10 yrs per GI Vaccines:T dAP: 05/21/21Zos ter rec: 03/29/19, 08/10/2019P CV20: not dueInfluen za: 04/06/22Cov id: 10/17/20, 11/07/20, 05/27/21, 11/27/21, 04/02/22 bivalent.m onkey pox: Had 2 doses. Routine labs today Immunizati on status reviewed. Will screen based on risk factors. Regular dental and ophtho care advised as well as seat belt and sunscreen use. Distracted driving discussed. Medication reconciled . Patent foramen ovale 204 051442 Q21.12 Seen by cards 06/12/ no further workup needed. Fatigue 17886158 R53.83 Hyperlipidemia 88214802 E78.5 Testicular hypofunction 673055642 E29.1 Followed by urology and gets testostero ne injection but PSA follow up. Bipolar I disorder 29951 6008 F31.9 Followed by psych Body mass index 25-29 - overweight 693188508 E66.3 Z68.25 - Diet and exercise discussed- Encouraged to loose weight. Goal set to loose weight at 1-1.5 Lbs/week- Avoid starchy and fatty food- Encouraged use of green vegetables and fruits Overweight 159240192 E66 .3 [id number] Santos Ordonez MD Main Office [address] [facility] [address] [place] [address] 05/08/2023 08:30:21 05/08/2023 08:57:44 Exercise-induced asthma 23934740 J45.990 -reports of SOB only while swimming, onset 2 weeks ago-normal ly swims 1.5-2 miles and recently noticed SOB after 100 yards-has hx of exercise induced asthma (2011) in which he was provided an inhaler and reported it was well controlled and hasnt used an inhaler in over 10 years.-no chest pain, palpitatio ns, SOB when walking or laying down.-PE was unremarkab le-will check blood work and have pt start ProAir HFA [id number] Rosemary Keys PA-C Main Office [address] [place] [address] 06/05/2023 11:16:43 06/05/2023 12:07:57 Dyspnea on exertion 88939134 R06.09 recommend to avoid strenuous exercise until cardiac work up is completed. schedule stress test to r/o cardiac ischemia. Chest xray and labs advised. Pt. advised to take ASA 81 mg daily. Sinus bradycardia 662477 05 R00.1 Pt. is runner and swims every day. Other st-t abnormalit y present on EKG. [id number] Santos Ordonez MD Main Office [address] [place] [address] 06/12/2023 15:05:28 06/12/2023 15:44:51 Intermittent palpitations 516009690 R00.2 Snoring 99375838 R06.83 [id number] Santos Ordonez MD Main Office [address] [place] [address] 09/14/2023 14:53:13 09/14/2023 15:46:24 Adult health examination 723793872 Z00.00 Patient was counseled on healthy diet, exercise and nutrition due to Body mass index is 27.7 kg/m??. hx of Prostate CA:Plan: follows urology s/p prostatect jonny. Last Colonoscop y:Date: 09/20/20Resu lt: no polypPlan: repeat 10 yrs per GI Vaccines:T dAP: 05/21/21Zos ter rec: 03/29/19, 08/10/2019P CV20: script givenInflu brenden: 04/10/23Cov id: 10/17/20, 11/07/20, 05/27/21, 11/27/21, 04/02/22 bivalent, 04/10/23mon [place] pox: Had 2 doses.RSV: 07/12/23 Routine labs today Immunizati on status reviewed. Will screen based on risk factors. Regular dental and ophtho care advised as well as seat belt and sunscreen use. Distracted driving discussed. Medication reconciled . Patent foramen ovale 204 694026 Q21.12 Seen by cards 06/12/ no further workup needed. Fatigue 51325086 R53.83 Hyperlipidemia 96649418 E78.5 Testicular hypofunction 904961579 E29.1 Followed by urology and gets testostero ne injection but PSA follow up. Bipolar I disorder 03615 6008 F31.9 Followed by psych Body mass index 25-29 - overweight 311211134 E66.3 Z68.25 - Diet and exercise discussed- Encouraged to loose weight. Goal set to loose weight at 1-1.5 Lbs/week- Avoid starchy and fatty food- Encouraged use of green vegetables and fruits Overweight 373330421 E66 .3 Administra tion of pneumococcal vaccine 46881232 Z23 Essential hypertension 10313073 I10 Low sodium diet discussedC ounseled on medication adherence, will start ARB, side affect including angioedema discussed. He is aware to do labs prior to starting then return in 1 mo as we need to repeat BMP once bp stable with new meds to eval renal functionCo unseled on diet/exerc iseAdvised to keep BP daily BP log and technique counseled. Red flags of HTN emergency discussed and when to go to ED.' Asthma 790323776 J45.90 9 [id number] Santos Ordonez MD Main Office [address] [facility] [address] [place] [address] 11/02/2023 13:38:12 11/02/2023 14:11:41 Essential hypertension 09719113 I10 Low sodium diet discussedC ounseled on medication adherence, will cont. current dose has good bp reading tolerating will without side affects, advised to get BMP today.Coun seled on diet/exerc iseAdvised to keep BP daily BP log and technique counseled. Red flags of HTN emergency discussed and when to go to ED.' Advance di rective discussed with patient 564604129 Z71.89 MOLST completed today.Betty manzanares will reviewed, HCP is Brother Newton and Sina a friend. [id number] Santos Ordonez MD Main Office [address] [facility] [address] [facility] [place] [address] 02/01/2024 15:21:15 02/02/2024 09:51:17 Essential hypertension 40700716 I10 Cont. Valsartan, bmp stable. Dyspnea on exertion 6084 5006 R06.09 Cont. workup per Pulmonary team. History of implantation of penile prosthesis 1483188825 Z96.0 Plans to follow [facility] as implant had failed. Health Concerns Section Related Observation LastModified by Organization Detai ls LastModified Time None Recorded Concern Status LastModified by Organization Details LastModified Time None Recorded Advance Directives Directive Y: Payers Encounter Date Sequence Insurance Name Policy Number Policy David Covered Member ID David Member ID Guarantor Name 06/05/2023 1 [facility] ([facility]) [id number] 1 Benigno Conde Jr [id number] Benigno Conde 06/12/2023 1 [facility] ([facility]) [id number] 1 Benigno Conde Jr [id number] Benigno Conde 09/14/2023 1 [facility] (MEDICARE REPLACEMENT/ ADVANTAGE - PPO) [id number] 1 Benigno Conde Jr [id number] Benigno Conde 11/02/2023 1 [facility] (MEDICARE REPLACEMENT/ ADVANTAGE - PPO) [id number] 1 Benigno Conde Jr [id number] Benigno Conde 02/01/2024 1 [facility] (MEDICARE REPLACEMENT/ ADVANTAGE - PPO) [id number] 1 Benigno Conde Jr [id number] Benigno Conde Notes Date Note Type Note Provider Name and Address Organization Details Recorded Time 06/05/2023 text/html 62 year old male is here c/o exertional dyspnea for the past about 2 months. Overall has not fatigue, no recent travel or lower leg pain or swelling. No chest pressure or pain. Last EKG in 2020 showed left axis deviation, otherwise unremarkable. Pt. has no know family h/o heart disease. Recent labs with normal lipids and glucose level. TSH was normal. Pt. is nonsmoker. H/o exercise induced asthma. Takes albuterol prior to swimming daily, but last 2 months dyspnea persisted after using the in haler. Rosemary Keys PA-C [address] [facility] [address], [place], [phone], [facility] 06/05/2023 12:20:00 06/12/2023 text/html The patient is h ere for a hospital follow-up, having experienced palpitations while swimming, causing him to stop due to shortness of breath. He also reports some shortness of breath when climbing stairs but does not perceive these as skipped heartbeats. There is no history of chest pain. Recently, he was sent to the emergency department by an Advanced Practice Provider ([facility]) due to a positive D-dimer test, but a subsequent CTA angiogram was negative. Today, he reports feeling slightly nervous.He has a cardiology appointment scheduled for next Thursday. My CARMEN has ordered a stress test. The patient denies any anxiety as a trigger for his symptoms and denies current drug or alcohol use, though he consumes one cup of coffee daily. He stays well-hydrated and is an avid swimmer. He is a former smoker. These symptoms began approximately 2-3 months ago and seem to be exacerbated by exertion. He has experienced syncope when standing up quickly but denies fever, nausea/vomiting, and only reports occasional loose stools. He feels unsteady when rising quickly but has no recent history of travel, bleeding, or changes in medication. His mother has a history of atrial fibrillation. He reports good sleep quality but has been told by multiple partners that he snores. Santos Ordonez MD [address] [facility] [address], [place], [phone], [facility] 06/12/2023 17:28:48 09/14/2023 text/html Medicare Annual Wellness VisitReported bypatient.Diet and Nutrition:healthy diet Fracture Risk:no recent explained fracture Physical Activity:exercises on a regular basis; good physical condition Depression Risk:See phq Concentration and Memory:no memory lapses or loss Speech/Motor difficulties:no speech difficulties Hearing:no loss of hearing Vision:no vision problems Activities of Daily Living:able to bathe with limited or no assistance; able to contol urination and bowels; able to dress with limited or no assistance; able to feed self with limited or no assistance; able to get out of chair or bed with limited or no assistance; able to groom with limited or no assistance; able to toilet with limited or no assistance Instrumental Activities of Daily Living:able to do house work with limited or no assistance; able to grocery shop with limited or no assistance; able to manage medications with limited or no assistance; able to manage money with limited or no assistance; able to prepare meals with limited or no assistance; able to use the phone with limited or no assistance Falls Risk Assessment:no fall in the past year Home Safety:reviewed sun protection; no unsafe zeus hazzards; no unsafe stairs; working smoke/CO detectors; use of seatbelts; good lighting in the home Here for PE visit. Reviewed chronic medications and medical problems. Discussed screening guidelines as well as goals for fitness and weight management. Santos Ordonez MD [address], [phone], [facility] 09/14/2023 15:48:46 11/02/2023 text/html Hypertension F/UReported bypatient.Associate d Symptoms:no dizziness; no lightheadedness; no chest pain; no shortness of breath; no palpitations; no edema; no calf pain with exertion Lifestyle:regular exercise; exercises 6 times/week; exercises for 90 minutes/day; limiting/avoiding salt Medications:taking medications as directed; no side effects from medication; checks blood pressure at home, range: (under 130/90)Notes:tolera ting valsartan well without side affect and good adherance. Santos Ordonez MD [address], [phone], [facility] 11/02/2023 14:08:48 02/01/2024 text/html The patient presents for follow-up, reporting shortness of breath when swimming. He has undergone extensive cardiac evaluation and has seen a ironworker, which indicated that his symptoms are unlikely to be cardiac-related. He has not yet discussed the results of his recent pulmonary function test, which included a methacholine challenge, with his crusher foreman. Additionally, a CT angiogram was performed, showing no acute lung pathology and ruling out pulmonary embolism. The stress test technician reported that the patient performed well during the lung function test. The patient is currently taking valsartan for blood pressure management and reports good tolerance, though he admits to not monitoring his blood pressure regularly. He is adherent to using his CPAP machine and has followed up with sleep medicine. Overall, he remains in good spirits and continues to swim as best as he can. Santos Ordonez MD [address] [facility] [address], [place], [phone], [facility] 02/01/2024 18:49:13
--- OUTSIDE RECORDS SUMMARY | 2024-09-30 11:04 | XMS_ITS | Clinical Summary ---
Author Organization [facility] Address [address] [place], [place] [id number] Care Team Providers Care Second Chef Name Role Phone Unavailable Primary Care Provider Unavailabl e Allergies No known active allergies Medications Medication Sig Dispensed Refills Start Date End Date Status ARIPiprazole (ABILIFY) 10 MG tablet TAKE 1 TABLET EVERY MORNING 1 03/23/2017 Active lithium carbonate 150 MG capsule TAKE 1 TABLET EVERY MORNING 1 02/23/2017 Active testosterone cypionate (DEPO-TESTOSTERON E CYPIONATE) injection 200 mg/mL INJET 0.5ML INTRAMUSCULARLY ONCE A WEEK DIRECTED 3 02/24/2017 Active folic acid (FOLVITE) tablet 1 mg Take 1 mg by mouth daily. 0 Active Multiple Vitamin (MULTI VITAMIN PO) Take by mouth. 0 Active Misc Natural Products (GLUCOSAMINE CHOND COMPLEX/MSM PO) Take by mouth. 0 Active lithium (ESKALITH) 450 MG CR tablet TAKE 1 TABLET EVERY MORNING 1 08/10/2017 Active FLUoxetine (PROZAC) 10 MG capsule Take 10 mg by mouth daily. in the morning 0 2017 Active clonazePAM (KlonoPIN) 1 MG tablet clonazepam 1 mg tablet 0 Active emtricitabine-ten ofovir (TRUVADA) 200-300 MG per tablet 0 08/05/2021 Active oxyCODONE-acetami nophen (Percocet) 5-325 MG per tablet Take 1-2 tabs every 4 hours as needed for pain following your right shoulder surgery 50 tablet 0 07/18/2022 Active Active Problems Problem Noted Date Diagnosed Date Arthritis of knee, left 11/16/2018 Arthritis of knee, left 03/04/2018 Arthritis of right knee 10/27/2017 Right patellofemoral syndrome 10/08/2017 Left shoulder pain 04/07/2017 Family History Medical History Relation Name Comments Cancer Father Relation Name Status Comments Father Social History Tobacco Use Types Packs/Day Years Used Date Smoking Tobacco: Never Assessed Sex and Gender Information Value Date Recorded Sex Assigned at Not on file Gender Identity Not on file Sexual Orientation Not on file Job Start Date Occupation Industry Not on file Not on file Not on file Last Filed Vital Signs Vital Sign Reading Time Taken Comments Blood Pressure - - Pulse - - Temperature - - Respiratory Rate - - Oxygen Saturation - - Inhaled Oxygen Concentration - - Weight 96.2 kg (212 lb) 08/06/2021 8:58 AM EST Height 193 cm (6' 4 ) 08/06/2021 8:58 AM EST Body Mass Index 25.81 08/06/2021 8:58 AM EST Plan of Treatment Health Maintenance Due Date Last Done Comments Hepatitis C Screening 1960 Depression Screening 1970 BMI Counseling 1976 Preventative Health Evaluation 1976 Colon Cancer Screening (Colonoscopy) 2003 Fall Risk Assessment 2023 Pneumococcal Vaccine (2 of 2 - PCV) 2023 01/24/2011 COVID-19 Vaccine ( - season) 2024 05/27/2021, 11/07/2020, 10/17/2020 Influenza Vaccine (#1) 2024 , 04/04/2020, 03/29/2019, Additional history exists DTap / Tdap / Td (3 - Td or Tdap) 05/21/2031 05/21/2021, 08/24/2008 RSV Adult > 60+ Yrs or (1 - 1-dose 75+ series) 2033 Shingrix-Zoster Vaccine Completed 08/10/2019, 03/29 Hepatitis B Vaccines Aged Out No long er eligible based on patient's age to complete this topic RSV Ped < 20 months Aged Out No longe r eligible based on patient's age to complete this topic Insurance Payer Benefit Plan / Group Subscriber ID Effective Dates Phone Address [facility] [id number] 2017-[employer] [address] [address] [facility] [address] [place] [address] HMO Benigno Conde Personal/Family Self 1960 ([place]) [address] [place] [address]
--- OUTSIDE RECORDS SUMMARY | 2024-09-30 11:04 | XMS_ITS ---
Author Name [facility] Organization Unknown History of Medication Use Medication Directions Dispensed Refills Start Date End Date Stat aripiprazole 10 mg tablet active lorazepam 1 mg tablet active trazodone 100 mg tablet 07/07/2023 active oxycodone-acetaminop hen 5 mg-325 mg tablet 07/07/2023 completed testosterone cypionate 200 mg/mL intramuscular oil active emtricitabine 200 mg-tenofovir disoproxil fumarate 300 mg tablet Take 1 tablet orally once a day active Problems Problem Status Onset Date Problem Type Date of Resoluti on Source Patellofemoral syndrome of right knee active 2023-07-08 ProblemAct [facility] Encounters Encounter Type Encounter Reason Primary Diagnosis Location Date Ambulatory [facility] [place] 07/07/2023 Ambulatory [facility] [place] 07/07/2023 Ambulatory [facility] [place] 07/07/2023 Ambulatory [facility] [place] 07/07/2023 [facility] [place] 07/07/2023 Ambulatory [facility] [place] 07/07/2023 Ambulatory [facility] [place] 09/24/2022
== END 2024-09-30 09:53 | disposition home or self-care (01) ==
LOC: HO.BBR 09:52
PROVIDERS: PCP Family Medicine; Visit Provider Urology
DX: D75.1 Secondary polycythemia (principal)
CPT/HCPCS: 85018; 99195

== ENCOUNTER 2025-01-02 08:56 | Outpatient (REF) | payer MEDICARE, SELFPAY | END 2025-01-02 08:57 | disposition home or self-care (01) | LOC: HO.BBR 08:56 | PROVIDERS: PCP Family Medicine; Visit Provider Urology | DX: D45 Polycythemia vera (principal) | CPT/HCPCS: 85018; 99195 ==

== ENCOUNTER 2025-04-04 09:15 | Outpatient (REF) | payer MEDICARE, SELFPAY ==
--- OUTSIDE RECORDS SUMMARY | 2025-04-04 11:38 | XMS_ITS ---
Author Name [facility] Organization Unknown History of Medication Use Medication Directions Dispensed Refills Start Date End Date Stat meloxicam 15 mg tablet Take 1 tablet every day by oral route. 03/21/2025 active trazodone 100 mg tablet 07/07/2023 active oxycodone-acetamino phen 5 mg-325 mg tablet 07/07/2023 completed meloxicam 15 mg tablet active aripiprazole 10 mg tablet active doxycycline hyclate 100 mg capsule TAKE 2 CAPSULES BY MOUTH WITHIN 72 hours AFTER unprotected intercourse, TAKE WITH FOOD active emtricitabine 200 mg-tenofovir disoproxil fumarate 300 mg tablet Take 1 tablet orally once a day active lorazepam 1 mg tablet active testosterone cypionate 200 mg/mL intramuscular oil active Problems Problem Status Onset Date Problem Type Date of Resoluti on Source Tendinitis of right patellar tendon active 2025-03-21 ProblemAct [facility] Patellofemoral syndrome of right knee active 2023-07-08 ProblemAct [facility] Bilateral medial epicondylitis of elbows active 2025-03-21 ProblemAct [facility] Lateral epicondylitis active 2025-03-21 ProblemAct [facility] Encounters Encounter Type Encounter Reason Primary Diagnosis Location Date Ambulatory [facility] [place] 03/22/2025 Ambulatory [facility] [place] 03/21/2025 Ambulatory [facility] [place] 03/21/2025 Ambulatory [facility] [place] 03/21/2025 Ambulatory [facility] [place] 03/21/2025 Ambulatory [facility] [place] 03/21/2025 Ambulatory [facility] [place] 01/02/2025 Ambulatory [facility] [place] 07[facility]07/2023 Ambulatory [facility] [place] 07/07/2023 Ambulatory [facility] [place] 07/07/2023 Ambulatory [facility] [place] 07/07/2023 Ambulatory [facility] [place] 07/07/2023 Ambulatory [facility] [place] 07/07/2023 Ambulatory [facility] [place] 09/24/2022
== END 2025-04-04 09:16 | disposition home or self-care (01) ==
LOC: HO.BBR 09:15
PROVIDERS: PCP Family Medicine; Visit Provider Urology
DX: D75.1 Secondary polycythemia (principal)
CPT/HCPCS: 85014; 85018; 99195

== ENCOUNTER 2025-07-04 08:25 | Outpatient (REF) | payer MEDICARE, SELFPAY ==
--- OUTSIDE RECORDS SUMMARY | 2025-07-04 08:48 | XMS_ITS | Data Portability ---
Author Organization [facility], Main Office Address [address] [facility] [address] [place] [id number] Care Team Providers Care Manager Demand Name Role Phone JOSÉ LUIS SANTOS Primary Care Provider KADEN VERDUZCO Urologist [phone] Car Coupler GISSELL JUAREZ Psychiatrist DAVE VILLANUEVA Maintenance Craftsman MARY BHARDWAJ [employer] Assessment Encounter Date Assessment Date Assessment LastModified by Organization Details LastModified Time 09/14/2023 09/14/2023 Gets truvada online with Mister jacqueline Not available 09/14/2023 15:27:27 02/01/2024 02/01/2024 This service was provided using telemedicine. Patient consented to video & audio visit Patient was located in the [facility]. Provider was located in the office. No other persons participated in the telemedicine visit except for the patient unless otherwise indicated here. Total time of visit was 15 minutes. [email or web address] Not available 02/01/2024 18:48:00 Plan of Treatment Reminders Order Date Submit Date Provider Last Modified By Organization Details Last Modified Time Details Appointments None record ed. Lab magnes ium, serum or plasma 2024 025 MAYKEL [facility], [address], [address], 08:08:19 lipid panel, serum 2024 025 MAYKEL [facility], [address], [address], [place], [address], 5 08:08:17 CBC w/ auto diff 2024 025 MAYKEL [facility], [address], [address], [place], [address], 5 08:08:16 TSH, ultra- sensit jose eduardo, serum 2024 025 MAYKEL [facility] (Centralized Electronic Ordering - All Locations), Patient Can Go To The Location Of Their Choice, [address] 5 08:08:18 CMP, serum or plasma 2024 025 MAYKEL [facility] (Centralized Electronic Ordering - All Locations), Patient Can Go To The Location Of Their Choice, [address] 5 08:08:16 BMP, serum or plasma 2023 024 MAYKEL [facility] (Centralized Electronic Ordering - All Locations), Patient Can Go To The Location Of Their Choice, [address] 4 08:08:46 lipid panel, serum 2023 024 MAYKEL [facility], [address], [address], [place], [address], 4 15:56:55 TSH, serum or plasma 2023 024 MAYKEL [facility], [address], [address], [place], [address], 4 16:35:54 CBC w/ auto diff 2023 024 MAYKEL [facility], [address], [address], [place], [address], 4 16:05:33 CMP, serum or plasma 2023 024 MAYKEL [facility], [address], [address], [place], [address], 4 15:56:52 magnes ium, serum or plasma 2023 OS[facility], [address] [place], [address], 4 15:56:56 Referral None record ed. Procedures None record ed. Surgeries None record ed. Imaging electr ocardi ogram 2024 025 [facility] In-Office Order, Internal Use Only DO Not Attach Compendium DO Not Attach Compendium, Do Not Delete/merge, [id number] 5 14:21:44 XR, chest, 2 view 2023 [facility] ([facility]), [address] [place], [address], 16:34:31 Medication Orders valsar marrufo 40 mg tablet 2023 [facility], [address] [place], [address], 14:00:39 albute rol sulfat e HFA 90 mcg/ac tuatio n aeroso l inhale r 2023 [email or web address] [facility], [address] [employer] [facility], [place], [address], 5 13:32:37 valsar marrufo 40 mg tablet 2023 024 [facility], [address] [place], [address], 4 15:52:35 Patient TargetsNo targets recorded. Patient Instructions Encounter Date Encounter Id Patient Instructions Last Modified By Organization Details Last Modified Time 09/14/2023 [id number] medical record request* [email or web address] Not available 09/21/2023 10:09:39 Well Visit 50 to 65: Care Instructions [email or web address] Not available 09/14/2023 15:32:05 preventing falls : care instructions ckokar Not available 09/14/2023 15:32:05 [...] Instructions ckokar Not available 09/14/2023 15:32:05 11/02/2023 [id number] advance care planning: care instructions ckokar Not available 11/02/2023 14:01:53 high blood pressure: care instructions ckokar Not available 11/02/2023 14:00:36 learning about high blood pressure ckokar Not available 11/02/2023 14:00:36 02/01/2024 [id number] high blood pressure: care instructions ckokar Not available 02/01/2024 18:47:44 learning about high blood pressure ckokar Not available 02/01/2024 18:47:44 12/06/2024 [id number] advance care planning: care instructions ckokar Not available 12/06/2024 13:56:16 high blood pressure: care instructions ckokar Not available 12/06/2024 13:56:16 learning about high blood pressure ckokar Not available 12/06/2024 13:56:16 When You Want to Lose Weight: Care Instructions ckokar Not available 12/06/2024 13:56:16 Well Visit 50 to 65: Care Instructions ckokar Not available 12/06/2024 13:56:16 preventing falls : care instructions ckokar Not available 12/06/2024 13:56:16 medicare preventive services guide (male 74 rs and under) ckokar Not available 12/06/2024 13:56:16 06/02/2025 [id number] high blood pressure: care instructions ckokar Not available 06/02/2025 14:04:28 learning about high blood pressure ckokar Not available 06/02/2025 14:04:28 Reason for Referral None Reported. Results Created Date Observation Date Name Description Value Unit Range Abnormal Flag Note LastModifiedBy Organization Detail LastModifiedTime 09/15/1909/15/2023 COMPR EHENS JOSE EDUARDO METAB OLIC [...] 16:05:33 09/15/1909/15/2023 COMPL ETE CBC WITH DIFF RBC 5.67 M/mm3 (4.70- 6.10) Not Available [facility] (Centralized Electronic Ordering - All Locations) Patient Can Go To The Location Of Their Choice, 09/15/2023 16:05:33 09/15/1909/15/2023 COMPL ETE CBC WITH DIFF HGB 16.0 gm/dL (13.7- 17.1) Not Available [facility] (Centralized Electronic Ordering - All Locations) Patient Can Go To The Location Of Their Choice, 09/15/2023 16:05:33 09/15/1909/15/2023 COMPL ETE CBC WITH DIFF HCT 49.7 % (40.5- 50.0) Not Available [facility] (Centralized Electronic Ordering - All Locations) Patient Can Go To The Location Of Their Choice, 09/15/2023 16:05:33 09/15/1909/15/2023 COMPL ETE CBC WITH DIFF MCV 87.7 [...] 09/15/2023 16:05:09/15/1909/15/2023 COMPL ETE CBC WITH DIFF MCHC 32.2 [...] 24 09/15/2023 COMPL ETE CBC WITH DIFF lymph # [...] 16:05:09/15/1909/15/2023 COMPL ETE CBC WITH DIFF eo # 0.1 K/mm3 (0.0-0 .4) Not Available [facility] (Centralized Electronic Ordering - All Locations) Patient Can Go To The Location Of Their Choice, 09/15/2023 16:05:09/15/19 24 09/15/2023 COMPL ETE CBC WITH DIFF baso # [...] 24 09/15/2023 COMPL ETE CBC WITH DIFF neut 70.1 % (44-76 ) Not Available [facility] (Centralized Electronic Ordering - All Locations) Patient Can Go To The Location Of Their Choice, 09/15/2023 16:05:09/15/19 24 09/15/2023 COMPL ETE CBC WITH DIFF lymph 22.3 % (15-43 ) Not Available [facility] (Centralized Electronic Ordering - All Locations) Patient Can Go To The Location Of Their Choice, 09/15/2023 16:05:33 09/15/19 24 09/15/2023 COMPL ETE CBC WITH DIFF monocyte 5.4 % (4.5-1 0.5) Not Available [facility] ([facility] Ordering - All Locations) Patient Can Go To The Location Of Their Choice, 09/15/2023 16:05:33 09/15/19 24 09/15/2023 COMPL ETE CBC WITH DIFF eo 1.0 [...] 24 09/15/2023 COMPL ETE CBC WITH DIFF imm gran 0.3 % Not Available [facility] ([facility] Ordering - All Locations) Patient Can Go To The Location Of Their Choice, 09/15/2023 16:05:33 09/15/19 24 09/15/2023 TSH WITH REFLE X TO FT4 TSH 1.95 uIU/m L (0.4-4 .2) Not Available [facility] ([facility] Ordering - All Locations) Patient Can Go To The Location Of Their Choice, 09/15/2023 16:35:54 11/02/1911/03/2023 BASIC METAB OLIC PANEL (8) glucose 97 mg/dL 70-99 Not Available [facility] ([facility]) [address] [place], [address], 11/03/2023 08:08:46 11/02/19 24 11/03/2023 BASIC METAB OLIC PANEL (8) BUN 16 mg/dL 8-27 Not Available [facility] ([facility]) [address] [facility], [place], [address], 11/03/2023 08:08:46 11/02/19 24 11/03/2023 BASIC METAB OLIC PANEL (8) creatinine 1.01 mg/dL 0.76-1 .27 Not Available [facility] ([facility]) [address] [facility], [place], [address], 11/03/2023 08:08:46 11/02/19 24 11/03/2023 BASIC METAB OLIC PANEL (8) eGFR 83 mL/mi n/1.7 3 >59 Not Available [facility] ([facility]) [address] [facility], [place], [address], 11/03/2023 08:08:46 11/02/19 24 11/03/2023 BASIC METAB OLIC PANEL (8) BUN/creatini ne ratio 16 10-24 Not Available [facility] ([facility]) [address] [facility], [place], [address], 11/03/2023 08:08:46 11/02/19 24 11/03/2023 BASIC METAB OLIC PANEL (8) sodium 137 mmol/ L 134-14 4 Not Available [facility] ([facility]) [address] [facility], [place], [address], 11/03/2023 08:08:46 11/02/19 24 11/03/2023 BASIC METAB OLIC PANEL (8) potassium 4.1 mmol/ L 3.5-5. 2 Not Available [facility] ([facility]) [address] [place], [address], 11/03/2023 08:08:46 11/02/19 24 11/03/2023 BASIC METAB OLIC PANEL (8) chloride 100 mmol/ L 96-106 Not Available [facility] ([facility]) [address] [facility], [place], [address], 11/03/2023 08:08:46 11/02/19 24 11/03/2023 BASIC METAB OLIC PANEL (8) carbon dioxide, total 22 mmol/ L 20-29 Not Available [facility] ([facility]) [address] [place], [address], 11/03/2023 08:08:46 11/02/19 24 11/03/2023 BASIC METAB OLIC PANEL (8) calcium 9.3 mg/dL 8.6-10 .2 Not Available [facility] ([facility]) [address] [place], [address], 11/03/2023 08:08:46 12/22/19 25 12/21/2024 CMP14 (REFL EX HGB A1C) glucose 80 mg/dL 70-99 normal Not Available [facility] ([facility]) [address] [facility], [place], [address], 12/22/2024 08:08:15 12/22/19 25 12/21/2024 CMP14 (REFL EX HGB A1C) BUN 15 mg/dL 8-27 normal Not Available [facility] ([facility]) [address] [place], [address], 12/22/2024 08:08:15 12/22/19 25 12/21/2024 CMP14 (REFL EX HGB A1C) creatinine 1.15 mg/dL 0.76-1 .27 normal Not Available [facility] ([facility]) [address] [place], [address], 12/22/2024 08:08:15 12/22/19 25 12/21/2024 CMP14 (REFL EX HGB A1C) eGFR 70 mL/mi n/1.7 3 >59 normal Not Available [facility] ([facility]) [address] [place], [address], 12/22/2024 08:08:15 12/22/19 25 12/21/2024 CMP14 (REFL EX HGB A1C) BUN/creatini ne ratio 13 10-24 normal Not Available [facility] ([facility]) [address] [place], [address], 12/22/2024 08:08:15 12/22/19 25 12/21/2024 CMP14 (REFL EX HGB A1C) sodium 138 mmol/ L 134-14 4 normal Not Available [facility] ([facility]) [address] [place], [address], 12/22/2024 08:08:15 12/22/19 25 12/21/2024 CMP14 (REFL EX HGB A1C) potassium 4.4 mmol/ L 3.5-5. 2 normal Not Available [facility] ([facility]) [address] [place], [address], 12/22/2024 08:08:15 12/22/19 25 12/21/2024 CMP14 (REFL EX HGB A1C) chloride 99 mmol/ L 96-106 normal Not Available [facility] ([facility]) [address] [place], [address], 12/22/2024 08:08:15 12/22/19 25 12/21/2024 CMP14 (REFL EX HGB A1C) carbon dioxide, total 24 mmol/ L 20-29 normal Not Available [facility] ([facility]) [address] [place], [address], 12/22/2024 08:08:15 12/22/19 25 12/21/2024 CMP14 (REFL EX HGB A1C) calcium 9.6 mg/dL 8.6-10 .2 normal Not Available [facility] ([facility]) [address] [place], [address], 12/22/2024 08:08:15 12/22/19 25 12/21/2024 CMP14 (REFL EX HGB A1C) protein, total 6.6 g/dL 6.0-8. 5 normal Not Available [facility] ([facility]) [address] [place], [address], 12/22/2024 08:08:15 12/22/19 25 12/21/2024 CMP14 (REFL EX HGB A1C) albumin 4.5 g/dL 3.9-4. 9 normal Not Available [facility] ([facility]) [address] [place], [address], 12/22/2024 08:08:15 12/22/19 25 12/21/2024 CMP14 (REFL EX HGB A1C) globulin, total 2.1 g/dL 1.5-4. 5 Not Available [facility] ([facility]) [address] [place], [address], 12/22/2024 08:08:15 12/22/19 25 12/21/2024 CMP14 (REFL EX HGB A1C) bilirubin, total 0.7 mg/dL 0.0-1. 2 normal Not Available [facility] ([facility]) [address] [place], [address], 12/22/2024 08:08:15 12/22/19 25 12/21/2024 CMP14 (REFL EX HGB A1C) alkaline phosphatase 78 IU/L 44-121 normal Not Available [facility] ([facility]) [address] [place], [address], 12/22/2024 08:08:15 12/22/19 25 12/21/2024 CMP14 (REFL EX HGB A1C) AST (SGOT) 35 IU/L 0-40 normal Not Available [facility] ([facility]) [address] [place], [address], 12/22/2024 08:08:15 12/22/19 25 12/21/2024 CMP14 (REFL EX HGB A1C) ALT (SGPT) 33 IU/L 0-44 normal Not Available [facility] ([facility]) [address] [place], [address], 12/22/2024 08:08:15 06/04/20 25 12/21/2024 CBC WITH DIFFE RENTI AL/PL ATELE T WBC 8.8 x10e3 /uL 3.4-10 .8 normal Not Available [facility] ([facility]) [address] [place], [address], 12/22/2024 08:08:16 12/22/19 25 12/21/2024 CBC WITH DIFFE RENTI AL/PL ATELE T RBC 5.65 x10e6 /uL 4.14-5 .80 normal Not Available [facility] ([facility]) [address] [place], [address], 12/22/2024 08:08:16 12/22/1912/21/2024 CBC WITH DIFFE RENTI AL/PL ATELE T hemoglobin 17.0 g/dL 13.0-1 7.7 normal Not Available [facility] ([facility]) [address] [place], [address], 12/22/2024 08:08:16 12/22/1912/21/2024 CBC WITH DIFFE RENTI AL/PL ATELE T hematocrit 51.8 % 37.5-5 1.0 above high normal Not Available [facility] ([facility]) [address] [place], [address], 12/22/2024 08:08:16 12/22/1912/21/2024 CBC WITH DIFFE RENTI AL/PL ATELE T MCV 92 fL 79-97 normal Not Available [facility] ([facility]) [address] [place], [address], 12/22/2024 08:08:16 12/22/1912/21/2024 CBC WITH DIFFE RENTI AL/PL ATELE T MCH 30.1 pg 26.6-3 3.0 normal Not Available [facility] ([facility]) [address] [place], [address], 12/22/2024 08:08:16 12/22/19 25 12/21/2024 CBC WITH DIFFE RENTI AL/PL ATELE T MCHC 32.8 g/dL 31.5-3 5.7 normal Not Available [facility] ([facility]) [address] [facility], [place], [address], 12/22/2024 08:08:16 12/22/1912/21/2024 CBC WITH DIFFE RENTI AL/PL ATELE T RDW 12.7 % 11.6-1 5.4 Not Available [facility] ([facility]) [address] [facility], [place], [address], 12/22/2024 08:08:16 12/22/1912/21/2024 CBC WITH DIFFE RENTI AL/PL ATELE T platelets 173 x10e3 /uL 150-45 0 normal Not Available [facility] ([facility]) [address] [facility], [place], [address], 12/22/2024 08:08:16 12/22/1912/21/2024 CBC WITH DIFFE RENTI AL/PL ATELE T neutrophils 52 % not estab. normal Not Available [facility] ([facility]) [address] [facility], [place], [address], 12/22/2024 08:08:16 12/22/1912/21/2024 CBC WITH DIFFE RENTI AL/PL ATELE T lymphs 36 % not estab. normal Not Available [facility] ([facility]) [address] [facility], [place], [address], 12/22/2024 08:08:16 12/22/1912/21/2024 CBC WITH DIFFE RENTI AL/PL ATELE T monocytes 8 % not estab. normal Not Available [facility] ([facility]) [address] [facility], [place], [address], 12/22/2024 08:08:16 12/22/19 25 12/21/2024 CBC WITH DIFFE RENTI AL/PL ATELE T eos 3 % not estab. normal Not Available [facility] ([facility]) [address] [place], [address], 12/22/2024 08:08:16 12/22/1912/21/2024 CBC WITH DIFFE RENTI AL/PL ATELE T basos 1 % not estab. normal Not Available [facility] ([facility]) [address] [facility], [place], [address], 12/22/2024 08:08:16 12/22/1912/21/2024 CBC WITH DIFFE RENTI AL/PL ATELE T immature cells IN SHOP SERVICE TECHNICIAN Not Available [facility] ([facility]) [address] [place], [address], 12/22/2024 08:08:16 12/22/1912/21/2024 CBC WITH DIFFE RENTI AL/PL ATELE T neutrophils (absolute) 4.7 x10e3 /uL 1.4-7. 0 normal Not Available [facility] ([facility]) [address] [place], [address], 12/22/2024 08:08:16 12/22/1912/21/2024 CBC WITH DIFFE RENTI AL/PL ATELE T lymphs (absolute) 3.2 x10e3 /uL 0.7-3. 1 above high normal Not Available [facility] ([facility]) [address] [place], [address], 12/22/2024 08:08:16 12/22/1912/21/2024 CBC WITH DIFFE RENTI AL/PL ATELE T monocytes(ab solute) 0.7 x10e3 /uL 0.1-0. 9 normal Not Available [facility] ([facility]) [address] [place], [address], 12/22/2024 08:08:16 12/22/1912/21/2024 CBC WITH DIFFE RENTI AL/PL ATELE T eos (absolute) 0.3 x10e3 /uL 0.0-0. 4 normal Not Available [facility] ([facility]) [address] [facility], [place], [address], 12/22/2024 08:08:16 12/22/1912/21/2024 CBC WITH DIFFE RENTI AL/PL ATELE T baso (absolute) 0.1 x10e3 /uL 0.0-0. 2 normal Not Available [facility] ([facility]) [address] [facility], [place], [address], 12/22/2024 08:08:16 12/22/1912/21/2024 CBC WITH DIFFE RENTI AL/PL ATELE T immature granulocytes 0 % not estab. Not Available [facility] ([facility]) [address] [facility], [place], [address], 12/22/2024 08:08:16 12/22/1912/21/2024 CBC WITH DIFFE RENTI AL/PL ATELE T immature grans (abs) 0.0 x10e3 /uL 0.0-0. 1 Not Available [facility] ([facility]) [address] [facility], [place], [address], 12/22/2024 08:08:16 12/22/1912/21/2024 CBC WITH DIFFE RENTI AL/PL ATELE T NRBC IN SHOP SERVICE TECHNICIAN Not Available [facility] ([facility]) [address] [facility], [place], [address], 12/22/2024 08:08:16 12/22/1912/21/2024 CBC WITH DIFFE RENTI AL/PL ATELE T hematology comments: IN SHOP SERVICE TECHNICIAN Not Available [facility] ([facility]) [address] [place], [address], 12/22/2024 08:08:16 12/22/1912/21/2024 LIPID PANEL cholesterol, total 156 mg/dL 100-19 9 normal Not Available [facility] ([facility]) [address] [place], [address], 12/22/2024 08:08:17 12/22/19 25 12/21/2024 LIPID PANEL triglyceride s 73 mg/dL 0-149 normal Not Available [facility] ([facility]) [address] [place], [address], 12/22/2024 08:08:17 12/22/19 25 12/21/2024 LIPID PANEL HDL cholesterol 41 mg/dL >39 normal Not Available [facility] ([facility]) [address] [place], [address], 12/22/2024 08:08:17 12/22/19 25 12/21/2024 LIPID PANEL VLDL cholesterol danny 14 mg/dL 5-40 Not Available [facility] ([facility]) [address] [place], [address], 12/22/2024 08:08:17 12/22/19 25 12/21/2024 LIPID PANEL LDL chol calc ([facility]) 101 mg/dL 0-99 above high normal Not Available [facility] ([facility]) [address] [place], [address], 12/22/2024 08:08:17 12/22/19 25 12/21/2024 LIPID PANEL LDL calc comment: IN SHOP SERVICE TECHNICIAN Not Available [facility] ([facility]) [address] [place], [address], 12/22/2024 08:08:17 12/22/19 25 12/21/2024 TSH RFX ON ABNOR MAL TO FREE T4 TSH 2.540 uIU/m L 0.450- 4.500 normal Not Available [facility] ([facility]) [address] [place], [address], 12/22/2024 08:08:18 12/22/19 25 12/22/2024 MAGNE SIUM magnesium 2.2 mg/dL 1.6-2. 3 normal Not Available [facility] ([facility]) [address] [facility], [place], [address], 12/22/2024 08:08:19 08/20/19 24 08/20/2023 US, echoc ardio gram No observ ation record ed. [facility] [address] [place] [address], [address], 08/24/2023 16:43:40 09/14/19 24 09/14/2023 XR, chest [...] IMPRES MIRIAM: No acute abnorm ality. WSN: [id number] Orderi ng Physic linden: Breanne Ferguson Dictat ed By: Oswaldo Chisholm MD, V Dictat ed Date/T yokasta: 4:31 pm Review ed By: Oswaldo Chisholm MD, V Signed By: Oswaldo Chisholm MD, V Signed Date/T yokasta: 4:31 pm Transc ribed By: MELANIE Transc ribed Date/T yokasta: 4:30 pm Patien t Class: Outpat ient [facility] (Outpt Imaging) [address] [place], [address], 09/15/2023 18:51:31 09/14/19 24 09/14/2023 XR, chest No observ ation record ed. [email or web address] [address], [address], 09/21/2023 10:08:45 09/21/1907/16/2023 cassie r monit or No observ ation record ed. jacqueline [employer] [address] [address], [place], [address], 09/21/2023 11:21:33 06/02/20 25 06/02/2025 elect rocar diogr am No observ ation record ed. [email or web address] In-Office Order Internal Use Only DO Not Attach Compendium DO Not Attach Compendium, Do Not Delete/merge, [id number] 06/02/2025 17:09:53 06/02/20 elect rocar diogr am No observ ation record ed. [email or web address] In-Office Order Internal Use Only DO Not Attach Compendium DO Not Attach Compendium, Do Not Delete/merge, [id number] 06/02/2025 15:00:13 Result Notes Documentation Provider Name and Address Organization Details Recorded Time Xr, Chest, 2 View : Chest 2 Views Frontal and Lat Reason: asthma COMPARISON: 06/05/2023 and 02/02/2009. FINDINGS: LINES AND TUBES: None. LUNGS AND PLEURA: Clear lungs. Normal pulmonary vascularity. No pleural effusion. No pneumothorax. HEART, MEDIASTINUM AND LAURYN: Heart is normal in size. Normal mediastinal and hilar contour. BONES AND SOFT TISSUES: No acute abnormality. IMPRESSION: No acute abnormality. 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 s Sobia Carter-Eros desai, [facility] 09:18:01 Acute pharyngi tis 290092779 Completed 200801/31/2014 RECORDED 08/24/19 09 7:30AM BY ERIC BEAVERSATI ON/ADDEN DUM Not Available [facility] 4 14:37:14 Influenz a vaccine needed [id number] 06 Completed 200801/31/2014 RECORDED 08/24/19 09 7:29AM BY ERIC BEAVERSATI ON/ADDEN DUM Not Available [facility] 4 14:37:15 Administ ration of bacteria l and viral vaccine Completed 200801/31/2014 RECORDED 08/24/19 09 8:18AM BY EROS SANTAMARIA, OFFICE VISIT Not Available [facility] 4 14:37:15 Sprains and strains of joints and adjacent muscles Completed 200801/31/2014 RECORDED 08/24/19 09 7:30AM BY ERIC BEAVERSATI ON/ADDEN DUM Not Available [facility] 4 14:37:16 Acute pharyngi tis [id number] Completed 200802/27/2014 RECORDED 08/24/19 09 7:30AM BY ERIC BEAVERSATI ON/ADDEN DUM Not Available [facility] 4 05:33:36 Influenz a vaccine needed [id number] 06 Completed 200802/27/2014 RECORDED 08/24/19 09 7:29AM BY ERIC BEAVERSATI ON/ADDEN DUM [facility] Available [facility] 4 05:33:36 Administ ration of bacteria l and viral vaccine Completed 200802/27/2014 RECORDED 08/24/19 09 8:18AM BY EROS SANTAMARIA, OFFICE VISIT Not Available [facility] 4 05:33:36 Sprains and strains of joints and adjacent muscles Completed 200802/27/2014 RECORDED 08/24/19 09 7:30AM BY ERIC BEAVERSATI ON/ADDEN DUM Not Available [facility] 4 05:33:36 Eruption [id number] Completed 200801/31/2014 RECORDED 10/27/19 09 11:00AM BY ERIC BEAVERSATI ON/ADDEN DUM Not Available [facility] 4 14:37:15 Adult health examinat ion Completed 200801/31/2014 RECORDED 10/27/19 09 11:00AM BY ERIC BEAVERSATI ON/ADDEN DUM Santos Ferguson MD [address] [facility] [address], [place], [address] , [facility] 3 12:05:14 Eruption [id number] Completed 200802/27/2014 RECORDED 10/27/19 09 11:00AM BY CARRINGTON BEAVERS ON/ADDEN DUM Not Available [facility] 4 05:33:36 Allergic rhinitis [id number] Completed 200801/31/2014 RECORDED 02/06/20 09 1:08PM BY CARRINGTON HEWITT ON/ADDEN DUM Not Available [facility] 4 14:37:14 Screenin g for malignan t neoplasm of colon Completed 200801/31/2014 RECORDED 02/06/20 09 1:08PM BY CARRINGTON HEWITT ON/ADDEN DUM Santos Ferguson MD [address] [facility] [address], [place], [address] , [facility] 3 12:07:41 Cough [id number] Completed 200801/31/2014 RECORDED 02/06/20 09 1:08PM BY CARRINGTON HEWITT ON/ADDEN DUM Not Available [facility] 4 14:37:14 Infectiv e otitis externa [id number] Completed 200801/31/2014 RECORDED 02/06/20 09 1:08PM BY EROS PERAZA ANNOTATI ON/ADDEN DUM Not Available [facility] 4 14:37:15 Malaise and fatigue 764514904 Completed 200801/31/2014 RECORDED 02/06/20 09 1:08PM BY EROS PERAZA ANNOTATI ON/ADDEN DUM Not Available [facility] 4 14:37:15 Allergic rhinitis 03946346 Completed 200802/27/2014 RECORDED 02/06/20 09 1:08PM BY EROS PERAZA ANNOTATI ON/ADDEN DUM Not Available [facility] 4 05:33:36 Screenin g for malignan t neoplasm of colon Completed 200802/27/2014 RECORDED 02/06/20 09 1:08PM BY EROS PERAZA, ANNOTATI ON/ADDEN DUM Santos Ferguson MD [address] [address], [facility] [place], [address] , [facility] 3 12:07:41 Cough 79210074 Completed 200802/27/2014 RECORDED 02/06/20 09 1:08PM BY EROS PERAZA ANNOTATI ON/ADDEN DUM Not Available [facility] 4 05:33:36 Infectiv e otitis externa 16577904 Completed 200802/27/2014 RECORDED 02/06/20 09 1:08PM BY ERIC HEWITTATI ON/ADDEN DUM Not Available [facility] 4 05:33:36 Malaise and fatigue 993038892 Completed 200802/27/2014 RECORDED 02/06/20 09 1:08PM BY EROS PERAZA ANNOTATI ON/ADDEN DUM Not Available [facility] 4 05:33:36 Palpitat ions 88683224 Completed 200801/31/2014 RECORDED 03/28/20 09 8:45AM BY EROS PERAZA ANNOTATI ON/ADDEN DUM Not Available [facility] 4 14:37:15 Palpitat ions 27760554 Completed 200802/27/2014 RECORDED 03/28/20 09 8:45AM BY CARRINGTON HEWITT ON/ANSELMO DUM Not Available [facility] 4 05:33:36 Disorder of anterior pituitar y 50003099 Completed 201108/27/2022 Santos Ferguson MD [address], [place], [address] , [facility] 3 12:06:11 Asthma 972955928 Completed 201112/06/2024 Santos Ferguson MD [address], [place], [address] , [facility] 5 13:43:59 Neck pain 41228092 Completed 201108/27/2022 Santos Ferguson MD [address], [place], [address] , [facility] 3 12:06:21 Follow-u p encounte r Completed 201105/21/2021 EROS Rincon, [facility] 1 09:05:59 Injury of knee 782995247 Completed 201105/21/2021 EROS Rincno, [facility] 1 09:06:12 Screenin g for malignan t neoplasm of colon Completed 201108/27/2022 Santos Ferguson MD [address], [place], [address] , [facility] 3 12:07:41 Syncope and collapse 695140397 Completed 201108/27/2022 Santos Ferguson MD [address], [place], [address] , [facility] 3 12:07:53 Pityrias is versicol or 58450555 Completed 201108/27/2022 Santos Ferguson MD [address], [place], [address] , [facility] 3 12:06:36 Adult health examinat ion Completed 201108/27/2022 Santos Ferguson MD [address], [place], [address] , [facility] 3 12:05:14 Anxiety disorder 408465829 Active 2011 EROS Rincon, [facility] 1 09:05:38 Depressi ve disorder 70808067 Active 2011 EROS Rincon, [facility] 1 09:05:48 Bipolar I disorder 750468775 Completed 201112/06/2024 Santos Ferguson MD [address], [place], [address] , [facility] 5 13:44:18 Harmful pattern of use of alcohol 58558899 Completed 201201/31/2014 IN HIS TEENS; RECORDED 08/23/19 13 1:42AM BY CARRINGTON HINDS ON/ADDEN DUM Not Available [facility] 4 14:37:14 Harmful pattern of use of alcohol 99232518 Completed 201202/27/2014 IN HIS TEENS; RECORDED 08/23/19 13 1:42AM BY CARRINGTON HINDS ON/ADDEN DUM Not Available [facility] 4 05:33:36 Primary malignan t neoplasm of prostate 54670474 Completed 201508/27/2022 Santos Ferguson MD [address], [place], [address] , [facility] 3 12:07:03 Patent foramen ovale 236253507 Active 2020 Santos Ferguson MD [address], [place], [address] , [facility] 1 09:36:36 Testicul ar hypofunc tion 873133430 Active 2022 Santos Ferguson MD [address] [facility] [address], [place], [address] , [facility] 3 08:13:52 Family history of malignan t neoplasm of prostate 715050567 Active 2022 Santos Ferguson MD [address], [place], [address] , [facility] 3 12:07:00 Sinus bradycar geetha 90149253 Completed 202212/06/2024 Santos Ferguson MD [address] [facility] [address], [place], [address] , [facility] 5 13:45:53 Obstruct jose eduardo sleep apnea syndrome 32135526 Active 2023 Santos Ferguson MD [address] [facility] [address], [place], [address] , [facility] 4 13:32:32 Hyperhid rosis 988275918 Active 2023 Santos Ferguson MD [address] [facility] [address], [place], [address] , [facility] 4 15:24:19 Ex-smoke r 4777494 Active 2023 Santos Ferguson MD [address] [facility] [address], [place], [address] , [facility] 4 15:24:42 Acute eczema 772688783 Completed 202412/06/2024 Santos Ferguson MD [address] [facility] [address], [place], [address] , [facility] 5 13:43:52 Eczema 62454549 Active 2024 Santos Ferguson MD [address], [place], [address] , [facility] 5 13:43:50 Bipolar II disorder 70445374 Active 2024 Followed by kamini Ferguson MD [address], [place], [address] , [facility] 5 13:44:21 History of malignan t neoplasm of prostate 656712805 Active 2024 Santos Ferguson MD [address], [place], [address] , [facility] 5 13:45:13 Essentia l hyperten miriam 14711365 Active 2024 Santos Ferguson MD [address], [place], [address] , [facility] 5 08:35:28 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 Procedures Surgical History Date Name Laterality Status Provider Name and Address Organization Details Recorded Time 12/07/19 25 Advanced Care Planning completed Santos Ferguson MD [address] [facility], [place], [address], [facility] 12/06/2024 13:55:44 03/01/20 24 revision of penile prosthesis completed [facility]udez [facility] 12/06/2024 13:33:52 11/02/19 24 Advanced Care Planning completed Santos Ferguson MD [address], [place], [address], [facility] 11/02/2023 14:01:01 08/05/19 23 arthroscopy of shoulder completed Sobia bermudez [facility] 08/27/2022 11:43:17 09/21/19 21 Colonoscopy completed Amandakaylin Faith [facility] 07/02/2021 13:58:26 07/20/19 20 implantation of penile prosthesis completed Santos Ferguson MD [address] [facility] [address], [place], [address], [facility] 05/21/2021 09:32:13 07/20/19 19 Prostatectomy (turp) completed Sobia bermudez MA [facility] 06/25/2021 13:48:07 07/20/19 19 Cancer Surgery completed Sobia bermudez MA [facility] 06/25/2021 13:47:11 07/20/19 10 Appendectomy completed Sobia bermudez MA [facility] 06/25/2021 13:47:10 07/20/18 64 tonsillectomy completed Sobia bermudez MA [facility] 05/21/2021 09:21:51 arthroscopy of shoulder completed Sobia bermudez MA [facility] 05/21/2021 09:20:58 Knee arthroscopy/surge ry completed Sobia bermudez MA [facility] 05/21/2021 09:21:37 Imaging Results None recorded. Procedure Notes None recorded. Medical Equipment None Reported. Allergies Allergen ID Allergen Name Allergen Category Reaction Reaction Severity Criticality Documentation Date Start Date Code Code System Note Provider Name and Address Organization Details Recorded Time 49154 No known allergy (situatio n) Not available Not available Not available Not available 02/04/2021 65683 6003 SNOMED EROS Guy [facility] 09:03:49 No known drug allergies Medications Name Sig Start Date Stop Date Status Note LastModified by Organization Details LastModified Time celecoxib 200 mg capsule TWO TIMES DAILY 04/25 completed RECORDED 04/25/20 11 1:39PM BY ANUSHA IVERSON , RN, PHONE ENCOUNTE R;PER PT NO LONGER TAKING Not Available Not Available Not Available cyclobenz aprine 10 mg tablet TID/PRN 02/12 completed RECORDED 03/09/20 09 10:34AM BY MANJULA HOPSON MD, MEDICATI ON AUTO-ZANDRA CTIVATIO N; Not Available Not Available Not Available doxycycli ne hyclate 100 mg capsule TAKE 2 CAPSULES BY MOUTH WITHIN 72 hours AFTER unprotec shanda intercou rse, TAKE WITH FOOD 05/30 completed Not Available Not Available Not Available [...] N; Not Available Not Available Not Available cefpodoxi me 200 mg tablet TAKE 1 TABLET (ORAL) 2 TIMES PER DAY FOR 10 DAYS MUST ADMINIST ER WITH A MEAL/RANJAN D active Not Available Not Available No t Available fluoroura cil 5 % topical cream [...] N; Not Available Not Available Not Available ciproflox acin 500 mg tablet TAKE 1 TABLET (500 MG) BY MOUTH EVERY MORNING AND EVERY EVENING FOR 7 DAYS 12/06 completed Not Available Not Available Not Available acetamino phen 500 mg tablet TAKE 2 TABLETS BY MOUTH EVERY 8 HOURS NEEDED FOR PAIN FOR UP TO 7 DAYS. 12/06 completed Not Available Not Available Not Available lithium carbonate ER 450 mg tablet,ex tended release Take 1 tablet every day by oral route. 05/21 completed Not Available Not Available Not Available lamotrigi ne 25 mg tablet active RECORDED 02/28/20 10 4:34PM BY MANJULA HOPSON MD, ANNOTATI ON/ANSELMO DUM; Not Available Not Available Not Available oxycodone -acetamin ophen 5 mg-325 mg tablet 08/27 completed Not Available Not Available Not Available tamsulosi n 0.4 mg capsule TAKE 1 CAPSULE (0.4 MG TOTAL) BY MOUTH DAILY FOR 7 DAYS 12/06 completed Not Available Not Available Not Available trazodone 100 mg tablet Take 1 tablet every day by oral route at bedtime. 05/08 completed Not Available Not Available Not Available ibuprofen 400 mg tablet TID 12/30 completed RECORDED 02/16/20 07 1:47PM BY LINDA MARTINEZ, MEDICATI ON AUTO-ZANDRA CTIVATIO N; Not Available Not Available Not Available dexametha sone 0.75 mg tablet Take 1 tablet every day by oral route. 06/02 completed for eczema Not Available Not Available Not Available betametha sone dipropion ate 0.05 % topical cream APPLY A THIN LAYER TO THE AFFECTED AREA(S) BY TOPICAL ROUTE TWICE DAILY 06/02 completed for eczema Not Available Not Available Not Available Drysol Dab-O-Mat ic 20 % topical solution Apply 1 applicat ion every day by topical route at bedtime for 90 days. 12/06 completed Not Available Not Available Not Available mupirocin 2 % topical ointment 05/08 completed Not Available Not Available Not Available lorazepam 1 mg tablet Take 1 tablet every day by oral route as needed. 12/06 completed Not Available Not Available Not Available Nasonex 50 mcg/actua tion [place] Q NARES QAM 02/05 completed RECORDED 02/06/20 09 1:47PM BY EROS PERAZA, OFFICE VISIT; Not Available Not Available Not Available testoster one cypionate 200 mg/mL intramusc ular oil INJECT 0.5 ML INTRAMUS CULARLY ONCE A WEEK DIRECTED BY MD FOR TESTICUL AR HYPOFUNC TION active Not Available Not Available No t Available ibuprofen 600 mg tablet TAKE 1 TABLET BY MOUTH EVERY 8 HOURS NEEDED FOR PAIN FOR UP TO 7 DAYS 12/06 completed Not Available Not Available Not Available albuterol sulfate HFA 90 mcg/actua tion aerosol inhaler INHALE TWO PUFFS BY MOUTH EVERY FOUR HOURS NEEDED 12/06 completed Not Available Not Available Not Available ketoconaz ole 2 % topical cream TWO TIMES DAILY 01/14 completed RECORDED 01/15/20 12 1:04PM BY MANJULA HOPSON MD, ANNOTATI ON/ADDEN DUM; Not Available Not Available Not Available fluoxetin e 20 mg capsule TAKE 1 CAPSULE BY MOUTH EVERY DAY IN THE MORNING active Not Available Not Available No t Available fluticaso ne propionat e 50 mcg/actua tion nasal spray,mikael pension [place] by nasal route. 06/25 completed Not Available Not Available Not Available doxycycli ne hyclate 100 mg tablet TAKE 1 TABLET BY MOUTH TWICE A DAY FOR 14 DAYS active Not Available Not Available No t Available oxycodone 5 mg tablet TAKE 1 TABLET EVERY 6 HOURS NEEDED FOR PAIN NOT RELIEVED WITH TYLENOL/ MOTRIN FOR UP TO 6 DOSES. 12/06 completed Not Available Not Available Not Available albuterol (refill) 90 mcg/actua tion aerosol inhaler Q 4 HRS PRN COUGH/WH EEZE 02/05 completed RECORDED 02/06/20 09 1:47PM BY EROS PERAZA, OFFICE VISIT; Not Available Not Available Not Available escitalop gila 10 mg tablet DAILY 02/09 completed RECORDED 02/27/20 10 9:04AM BY ALICJA DELAROSA, MEDICATI ON AUTO-ZANDRA CTIVATIO N;TAKE 1 DAILY FOR 1 WEEK THEN 2 DAILY Not Available Not Available Not Available escitalop gila 20 mg tablet QD active RECORDED 01/15/20 11 1:18PM BY MANJULA HOPSON MD, ANNOTATI ON/ADD DUM; Not Available Not Available Not [...] PM Not Available Not Available Not Available rosuvasta tin 10 mg tablet Take 1 tablet every day by oral route at bedtime. 2024 active Not Available Not Available Not Avai lable Wellbutri n XL 150 mg 24 hr tablet, extended release QD active RECORDED 01/15/20 11 1:18PM BY MANJULA HOPSON MD, ANNOTATI ON/ DUM; Not Available Not Available Not Available Wellbutri n XL 300 mg 24 hr tablet, extended release DAILY IN THE MORNING 2008 active RECORDED 04/25/20 09 8:55AM BY MANJULA HOPSON MD, ANNOTATI ON/ DUM; Not Available Not Available Not Available [...] vir disoproxi l fumarate 300 mg tablet TAKE 1 TABLET BY MOUTH DAILY active Not Available Not Available No t Available Cymbalta 60 mg capsule,d elayed release Take 1 capsule every day by oral route. 05/21 completed Not Available Not Available Not Available Adderall XR (20mg) DAILY active RECORDED 07/22/19 12 1:14PM BY MANJULA HOPSON MD, ERICATI ON/ADDEN DUM; Not Available Not Available Not [...] (BMI) Body weight Heart rate Oxygen saturation Body temperature Systolic And Diastolic Provider Name and Address Organization Details Last Updated DateTime 4 190.5 cm 28.2 kg/m2 853413. 88 g 66 /min 97 % 98.2 [degF] 145/74 mm[Hg] Sobia eddy MA [facility] 4 15:04:24 Date Recorded Body height Body mass index (BMI) Body weight Heart rate Oxygen saturation Body temperature Systolic And Diastolic Provider Name and Address Organization Details Last Updated DateTime 4 190.5 cm 27.6 kg/m2 784242. 91 g 66 /min 98 % 98.1 [degF] 120/75 mm[Hg] Keshia Rodriguez MA [facility] 4 13:47:39 Date Recorded Body height Body mass index (BMI) Body weight Heart rate Oxygen saturation Body temperature Systolic And Diastolic Provider Name and Address Organization Details Last Updated DateTime 5 190.5 cm 27.6 kg/m2 167874. 91 g 62 /min 99 % 98 [degF] 106/64 mm[Hg] Sobia eddy MA [facility] 5 13:32:13 Date Recorded Body height Provider Name an d Address Organization Details Last Updated DateTime 02/01/2024 190.5 cm Sobia Schilling MA [facility] 02/01/2024 15:47:02 Date Recorded Body height Body mass index (BMI) Body weight Heart rate Oxygen saturation Body temperature Systolic And Diastolic Provider Name and Address Organization Details Last Updated DateTime 5 190.5 cm 27.4 kg/m2 24492.1 7 g 74 /min 98 % 99.1 [degF] 120/76 mm[Hg] Snehal Sanchez [facility] 5 13:48:37 Social History Question Answer Notes LastModified by Organizat ion Details LastModified Time Tobacco Smoking Status Former Smoker EROS Izquierdo, [facility] 05/21/2021 09:19:37 Do You Have An Advance Directive? Yes Information not available 06/25/2021 Is Blood Transfusion Acceptable In An Emergency? Yes Information not available 06/25/2021 What Is Your Level Of Caffeine Consumption? Moderate 2 Cups Of Coffee Daily (hot Coffee In Am And Iced Coffee In Pm) Information not available 12/06/2024 How Much Tobacco Do You Chew? None Information not available 06/25/2021 What Type Of Diet Are You Following? REGULAR Information not available 05/21/2021 When Did You Quit Smoking? 16+yearssinc elastcigaret te Information not available 05/21/2021 Live Alone Or [...] To Smoke? No Information not available 05/21/2021 How Much Tobacco Do You Smoke? 0.5 PPD Information not available 12/06/2024 Do You Use Sunscreen Routinely? Yes Information not available 06/25/2021 How Many Years Have You Smoked Tobacco? 13 Information not available 06/25/2021 Sex: Unknown Functional Status Question Answer Note LastModified by Organizat ion Details LastModified Time Do you use any illicit or recreational drugs? No Information not available 06/25/2021 Do you or have you ever used any other forms of tobacco or nicotine? No Information not available 06/25/2021 What is your level of alcohol consumption? None Information not available 05/21/2021 Do you or have you ever used smokeless tobacco? Never used smokeless tobacco Information not available 06/25/2021 Are you currently employed? No retired Information not available 12/06/2024 Are you able to walk independently without assistance or assistive devices? YESWOREST Information not available 06/25/2021 Are you able to care for yourself independently? 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 Moderate daily walking; 5 x week at gym, swimming 5-6 x week Information not available 12/06/2024 Mental Status None recorded. Family History Relationship Description Onset Age of this Age Resolved Age Notes LastModified by Organization Details LastModified Time Mother Atrial fibrillation [email or web address] s Not available 06/25/2021 13:47:09 Mother Arthritis bsolivanmatto s Not available 06/25/2021 13:47:09 Father Alzheimer's disease bsolivanmatto s Not available 06/25/2021 13:47:09 Father Harmful pattern of use of alcohol bsolivanmatto s Not available 06/25/2021 13:47:09 Sister Alzheimer's disease bsolivanmatto s Not available 06/25/2021 13:47:09 Medical History Condition Response Anxiety Disorder Y Vision or Eye Problems Y Cancer Y Seizures/Epilepsy Y Mental Illness Y Depression Y Acne Y Immunizations Vaccine Type Date Status Note Provider Nam e and Address Organization Details Recorded Time zoster recombinant 9 completed EROS Izquierdo [facility] 06/25/2021 13:59:15 zoster recombinant 0 completed EROS Izquierdo [facility] 06/25/2021 13:59:15 COVID-19, mRNA, LNP-S, PF, 30 mcg/0.3 mL dose 1 completed EROS Izquierdo [facility] 05/21/2021 09:34:55 COVID-19, mRNA, LNP-S, PF, 30 mcg/0.3 mL dose 1 completed EROS Izquierdo, [facility] 05/21/2021 09:35:07 Influenza, split virus, quadrivalent, PF 6 completed EROS Izquierdo, [facility] 06/25/2021 13:59:15 Influenza, MDCK, quadrivalent, PF 8 completed EROS Izquierdo, [facility] 06/25/2021 13:59:15 Influenza, split virus, quadrivalent, PF 0 completed EROS Izqueirdo, [facility] 06/25/2021 13:59:15 Influenza, MDCK, quadrivalent, PF 9 completed EROS Izquierdo, [facility] 06/25/2021 13:59:15 Influenza, split virus, quadrivalent, PF 7 completed EROS Izquierdo, [facility] 06/25/2021 13:59:15 COVID-19, mRNA, LNP-S, PF, 30 mcg/0.3 mL dose 1 completed EROS Izquierdo, [facility] 06/25/2021 14:00:04 Influenza, MDCK, quadrivalent, PF 2 completed EROS Izquierdo, [facility] 08/27/2022 11:35:33 Vaccinia, smallpox monkeypox vaccine live, PF, SQ or ID injection 2 completed EROS Izquierdo, [facility] 08/27/2022 11:35:33 COVID-19, mRNA, LNP-S, PF, 30 mcg/0.3 mL dose, eva-sucrose 2 completed EROS Izquierdo, [facility] 08/27/2022 11:35:34 COVID-19, mRNA, LNP-S, bivalent, PF, 50 mcg/0.5 mL or 25mcg/0.25 mL dose 2 completed EROS Izquierdo, [facility] 08/27/2022 11:35:34 Influenza, MDCK, quadrivalent, PF 3 completed Perla Silverman LPN [facility], [facility] 05/08/2023 08:38:42 COVID-19, mRNA, LNP-S, PF, 50 mcg/0.5 mL 3 completed Perla Silverman CORPORATE RECEPTIONIST [facility], [facility] 05/08/2023 08:38:43 RSV, recombinant, protein subunit RSVpreF, adjuvant reconstituted, 0.5 mL, PF 3 completed EROS Izquierdo, [facility] 09/14/2023 15:00:22 Pneumococcal conjugate PCV20, polysaccharide [id number] conjugate, adjuvant, PF 4 completed EROS Izquierdo, [facility] 02/01/2024 15:46:58 COVID-19, mRNA, LNP-S, PF, eva-sucrose, 30 mcg/0.3 mL 4 completed Not Available [facility] 06/02/2025 13:43:57 MMR 5 completed Not Available [facility] 06/02/2025 13:43:57 COVID-19, mRNA, LNP-S, PF, eva-sucrose, 30 mcg/0.3 mL 5 completed Not Available [facility] 06/02/2025 13:43:57 Influenza, high-dose, trivalent, PF 4 completed Not Available [facility] 06/02/2025 13:43:57 Pneumococcal conjugate PCV20, polysaccharide [id number] conjugate, adjuvant, PF 4 completed Not Available [facility] 06/02/2025 13:43:57 Influenza, high-dose, trivalent, PF 5 completed Not Available [facility] 06/02/2025 13:43:57 Hep B, adult 0 completed Not Available [facility] 06/12/2023 15:07:31 Influenza, split virus, trivalent, preservative 7 completed Not Available [facility] 06/12/2023 15:07:31 Tdap 9 completed Not Available [facility] 06/12/2023 15:07:31 Influenza, split virus, quadrivalent, PF 1 completed Santos Ferguson MD [address], [address], [facility] 05/21/2021 09:37:15 Tdap 1 completed Santos Ferguson MD [address], [address], [facility] 05/21/2021 09:37:15 Past Encounters Encounter ID Performer Location Encounter Start Date Encounter Closed Date Diagnosis/Indication Diagnosis SNOMED-CT Code Diagnosis ICD10 Code Diagnosis IMO Codes Diagnosis Note [id number] autoEComm erce [address] [facility] [place] [address] 11/30/2006 00:00:00 [id number] autoEComm erce [address] [facility] [facility] [place] [address] 02/15/2007 00:00:00 [id number] autoEComm erce [address] [facility] [place] [address] 06/09/2007 00:00:00 [id number] autoEComm erce [address] [facility] [place] [address] 08/24/2008 00:00:00 [id number] autoEComm erce [address] [facility] [place] [address] 10/26/2008 00:00:00 [id number] autoEComm erce [address] [facility] [facility] [place] [address] 02/02/2009 00:00:00 [id number] autoEComm erce [address] [facility] [place] [address] 02/05/2009 00:00:00 [id number] autoEComm erce [address] [facility] [place], [place] [address] 03/10/2009 00:00:00 [id number] autoEComm erce [address] [facility] [place], [place] [address] 03/28/2009 00:00:00 [id number] autoEComm erce [address] [facility] [place], [place] [id number] 04/19/2009 00:00:00 [id number] autoEComm erce [address] [facility] [place], [place] [address] 01/10/2010 00:00:00 [id number] autoEComm erce [address] [facility] [place] [address] 01/17/2010 00:00:00 [id number] autoEComm erce [address] [facility] [place] [address] 02/27/2010 00:00:00 [id number] autoEComm erce [address] [facility],[address] [place] [address] 01/14/2011 00:00:00 [id number] autoEComm erce [address] [facility],[address] [place] [address] 07/22/2011 00:00:00 [id number] Santos Ferguson MD Main Office [address] [facility] [address] [place] [address] 05/21/2021 08:50:46 05/21/2021 10:16:22 Adult health examination [id number] Z00.00 Patient was counseled on healthy diet, exercise and nutrition due to Body mass index is 27.1 kg/m . hx of Prostate CA:Plan: follows urology s/p prostatect jonny. Last Colonoscop y:Date: 05/03/2010 Result: wnlPlan: repeat ordered Vaccines:T dAP: 05/21/21Zos ter: script providedPC V13: not uhiQPMG83: not dueInfluen za: 05/21/21Cov id: had 2 Pfizer dose Routine labs today Immunizati on status reviewed. Will screen based on risk factors. Regular dental and ophtho care advised as well as seat belt and sunscreen use. Distracted driving discussed. Medication reconciled . Fatigue 48557170 R53.83 Hyperlipidemia 84213369 E78.5 Hepatitis C screening 41 7036142 Z11.59 Needs infl uenza immunization 605731996 Z23 Administra tion of viral vaccine 07947527 Z23 Patent foramen ovale 204 954756 Q21.1 Near syncope 033210751 R 55 On ROS patient admitted to [...] neck or back.Will check labs. TTE ordered. [id number] Santos Ferguson MD Main Office [address] [facility] [address] [facility] [place] [address] 06/25/2021 13:37:41 06/25/2021 14:21:00 Near syncope 158702970 R55 Benigno has opted to monitor sx for now and hold any tx, red flags were discussed. Advised frequent hydration and taking precaution from getting up too quickly. Hyperhidrosis 032213824 R61 [id number] Santos Ferguson MD Main Office [address] [facility] [address] [facility] [place] [address] 08/27/2022 11:06:40 08/27/2022 12:23:14 Adult health examination [id number] Z00.00 Patient was counseled on healthy diet, exercise and nutrition due to Body mass index is 27.7 kg/m . hx of Prostate CA:Plan: follows urology s/p [...] Medication reconciled . Patent foramen ovale 204 016719 Q21.12 Seen by cards 06/12/ no further workup needed. Fatigue 76997698 R53.83 Hyperlipidemia 97971236 E78.5 Testicular hypofunction 464084746 E29.1 Followed by urology and gets testostero ne injection but PSA follow up. Bipolar I disorder 63723 6008 F31.9 Followed by psych Body mass index 25-29 - overweight 495138770 E66.3 Z68.25 - Diet and exercise discussed- Encouraged to loose weight. Goal set to loose weight at 1-1.5 Lbs/week- Avoid starchy and fatty food- Encouraged use of green vegetables and fruits Overweight 077920625 E66 .3 [id number] VIET JARA Main Office [address] [facility] [address] [place] [address] 05/08/2023 08:30:21 05/08/2023 08:57:44 Exercise-induced asthma 20248336 J45.990 -reports of SOB only while swimming, [...] work and have pt start [employer] HFA [id number] Santos Ferguson MD Main Office [address] [address] [place] [address] 06/05/2023 11:16:43 06/05/2023 12:07:57 Dyspnea on exertion 09689564 R06.09 recommend to avoid strenuous exercise until cardiac work up is completed. schedule stress test to r/o cardiac ischemia. Chest xray and labs advised. Pt. advised to take ASA 81 mg daily. Sinus bradycardia 600001 05 R00.1 Pt. is runner and swims every day. Other st-t abnormalit y present on EKG. [id number] Santos Ferguson MD Main Office [address] [address] 06/12/2023 15:05:28 06/12/2023 15:44:51 Intermittent palpitations 737641652 R00.2 Snoring 96907555 R06.83 [id number] Santos Ferguson MD Main Office [address] [place] [address] 09/14/2023 14:53:13 09/14/2023 15:46:24 Adult health examination 432189992 Z00.00 Patient was counseled on healthy diet, exercise and nutrition due to Body mass index is 27.7 kg/m . hx of Prostate CA:Plan: follows urology s/p [...] Medication reconciled . Patent foramen ovale 204 134617 Q21.12 Seen by cards 06/12/ no further workup needed. Fatigue 71582806 R53.83 Hyperlipidemia 71488975 E78.5 Testicular hypofunction 345383321 E29.1 Followed by urology and gets testostero ne injection but PSA follow up. Bipolar I disorder 16450 6008 F31.9 Followed by psych Body mass index 25-29 - overweight 259294841 E66.3 Z68.25 - Diet and exercise discussed- Encouraged to loose weight. Goal set to loose weight at 1-1.5 Lbs/week- Avoid starchy and fatty food- Encouraged use of green vegetables and fruits Overweight 636732913 E66 .3 Administra tion of pneumococcal vaccine 19924028 Z23 Essential hypertension 70714658 I10 Low sodium diet discussedC ounseled on [...] and when to go to ED.' Asthma 591188171 J45.90 9 [id number] Santos Ferguson MD Main Office [address] [facility] [address] [place] [address] 11/02/2023 13:38:12 11/02/2023 14:11:41 Essential hypertension 13330000 I10 Low sodium diet discussedC ounseled on medication adherence, will cont. current dose has good bp reading tolerating will without side affects, advised to get BMP today.Coun seled on diet/exerc iseAdvised to keep BP daily BP log and technique counseled. Red flags of HTN emergency discussed and when to go to ED.' Advance di rective discussed with patient 898190986 Z71.89 MOLST completed today.Betty manzanares will reviewed, HCP is Brother Newton and Sina a friend. [id number] Santos Ferguson MD Main Office [address] [facility] [address] [place] [address] 02/01/2024 15:21:15 02/02/2024 09:51:17 Essential hypertension 86618559 I10 Cont. Valsartan, bmp stable. Dyspnea on exertion 6084 5006 R06.09 Cont. workup per Pulmonary team. History of implantation of penile prosthesis 0726017583 Z96.0 Plans to follow [facility] as implant had failed. [id number] Santos Ferguson MD Main Office [address] [facility] [address] [place] [address] 12/06/2024 13:22:08 12/06/2024 13:59:03 Adult health examination 624952444 Z00.00 Patient was counseled on healthy diet, exercise and nutrition due to Body mass index is 27.7 kg/m . hx of Prostate CA:Plan: follows urology s/p prostatect jonny. Last Colonoscop y:Date: 09/20/20Resu lt: no polypPlan: repeat 10 yrs per GI Vaccines:T dAP: 05/21/21Zos ter rec: 03/29/19, 08/10/2019P CV20: 09/15/23Inf luenza: 03/17/24Cov id: 09/16/24[place] pox: Had 2 doses.RSV: 07/12/23 Routine labs today Immunizati on status reviewed. Will screen based on risk factors. Regular dental and ophtho care advised as well as seat belt and sunscreen use. Distracted driving discussed. Medication reconciled . Patent foramen ovale 204 804882 Q21.12 Seen by cards 06/12/ no further workup needed. Fatigue 14773367 R53.83 R73.01 Hyperlipidemia 93677934 E78.5 Testicular hypofunction 328270061 E29.1 Followed by urology and gets testostero ne injection with PSA Body mass index 25-29 - overweight 554552908 E66.3 Z68.25 - Diet and exercise discussed- Encouraged to loose weight. Goal set to loose weight at 1-1.5 Lbs/week- Avoid starchy and fatty food- Encouraged use of green vegetables and fruits Overweight 254816447 E66 .3 Essential hypertension 38623861 I10 bp well controlled , continue current regimen. Advance di rective discussed with patient 867889030 Z71.89 MOLST standsLivi ng will reviewed, HCP is Brother Newton and Sina a friend. [id number] Santos Ferguson MD Main Office [address] [facility] [address] [facility] [place] [address] 06/02/2025 13:42:25 06/02/2025 14:20:10 Essential hypertension 12739235 I10 Low sodium diet discussedb p well controlled will continue current regimen.Co unseled on diet/exerc iseAdvised to keep BP daily BP log and technique counseled. Red flags of HTN emergency discussed and when to go to ED. History of Lyme disease 543002371 Z86.19 [id number] Will check ecg for heartblock , No heart block noted on ECG. Health Concerns Section Related Observation LastModified by Organization Detai ls LastModified Time None Recorded Concern Status LastModified by Organization Details LastModified Time None Recorded Advance Directives Directive Y: Payers Insurance Date Sequence Insurance Name Policy Number Policy David Covered Member ID David Member ID Guarantor Name 12/05/2024 1 [facility] (MEDICARE REPLACEMENT/A DVANTAGE - PPO) [id number] Benigno Conde Jr [id number] Benigno Conde 09/17/2023 2 MEDICARE B-PR: [facility] [employer] Benigno Conde Jr [id number] Benigno Conde 05/20/2021 1 [facility] (PPO) [id number] Benigno Conde [id number] Benigno Conde 09/11/2023 1 [facility] (HMO) [id number] Benigno Conde Jr [id number] Benigno Conde 06/02/2025 1 [facility]: MEDICARE PPO BLUE (MEDICARE REPLACEMENT PPO) [id number] Benigno Conde Jr [id number] Benigno Conde Notes Date Note Type Note Provider Name and Address Organization Details Recorded Time 09/14/2023 text/html Generic HPI TemplateReported by Patient Medicare Annual Wellness VisitReported by PatientSocial/Behavior al HistoryFor diet and nutrition, patient reportshealthy diet. For fracture risk, patient reportsno recent explained fracture. For physical activity, patient reportsexercises on a regular basisandgood physical condition.Mental Status:For concentration and memory, patient reportsno memory lapses or loss. For speech/motor difficulties, patient reportsno speech difficulties. For depression risk, (see phq).Functional AbilityFor hearing, patient reportsno loss of hearing. For vision, patient reportsno vision problems. For activities of daily living, patient reportsable to bathe with limited or no assistance,able to contol urination and bowels,able to dress with limited or no assistance,able to feed self with limited or no assistance,able to get out of chair or bed with limited or no assistance,able to groom with limited or no assistance, andable to toilet with limited or no assistance. For instrumental activities of daily living, patient reportsable to do house work with limited or no assistance,able to grocery shop with limited or no assistance,able to manage medications with limited or no assistance,able to manage money with limited or no assistance,able to prepare meals with limited or no assistance, andable to use the phone with limited or no assistance. For falls risk assessment, patient reportsno fall in the past year. For home safety, patient reportsno unsafe zeus hazzards,no unsafe stairs,working smoke/co detectors,use of seatbelts,good lighting in the home, andreviewed sun protection. Here for PE visit. Reviewed chronic medications and medical problems. Discussed screening guidelines as well as goals for fitness and weight management. Santos Ferguson MD [address], [address], [facility] 09/14/2023 15:48:46 11/02/2023 text/html Hypertension F/UReported by PatientHPIFor associated symptoms, patient reportsno dizziness,no lightheadedness,no chest pain,no shortness of breath,no palpitations,no edema, andno calf pain with exertion. For lifestyle, patient reportsregular exercise,limiting/avoi ding salt,exercises 6 times/week, andexercises for 90 minutes/day. For medications, patient reportstaking medications as directed,no side effects from medication, andchecks blood pressure at home, range: (under 130/90).tolerating valsartan well without side affect and good adherance. Santos Ferguson MD [address], [address], [facility] 11/02/2023 14:08:48 02/01/2024 text/html The patient presents for follow-up, reporting shortness of breath when swimming. He has undergone extensive cardiac evaluation and has seen a lead sustainability specialist, which indicated that his symptoms are unlikely to be cardiac-related. He has not yet discussed the results of his recent pulmonary function test, which included a methacholine challenge, with his prop sawyer. Additionally, a CT angiogram was performed, showing no acute lung pathology and ruling out pulmonary embolism. The electroencephalograph technician reported that the patient performed well [...] swim as best as he can. Santos Ferguson MD [address], [address], [facility] 02/01/2024 18:49:13 12/06/2024 text/html Generic HPI TemplateReported by Patient Medicare Annual Wellness VisitReported by PatientSocial/Behavior al HistoryFor diet and nutrition, patient reportshealthy diet. For fracture risk, patient reportsno recent explained fracture. For physical activity, patient reportsexercises on a regular basisandgood physical condition.Mental Status:For concentration and memory, patient reportsno memory lapses or loss. For speech/motor difficulties, patient reportsno speech difficulties. For depression risk, (see phq).Functional AbilityFor hearing, patient reportsno loss of hearing. For vision, patient reportsno vision problems. For activities of daily living, patient reportsable to bathe with limited or no assistance,able to contol urination and bowels,able to dress with limited or no assistance,able to feed self with limited or no assistance,able to get out of chair or bed with limited or no assistance,able to groom with limited or no assistance, andable to toilet with limited or no assistance. For instrumental activities of daily living, patient reportsable to do house work with limited or no assistance,able to grocery shop with limited or no assistance,able to manage medications with limited or no assistance,able to manage money with limited or no assistance,able to prepare meals with limited or no assistance, andable to use the phone with limited or no assistance. For falls risk assessment, patient reportsno fall in the past year. For home safety, patient reportsno unsafe zeus hazzards,no unsafe stairs,working smoke/co detectors,use of seatbelts,good lighting in the home, andreviewed sun protection. Here for PE visit. Reviewed chronic medications and medical problems. Discussed screening guidelines as well as goals for fitness and weight management. Gets PrEP through [employer]. Santos Ferguson MD [address] [address], [place], [address], [facility] 12/06/2024 13:56:34 06/02/2025 text/html Hypertension F/UReported by PatientHPIFor associated symptoms, patient reportsno dizziness,no lightheadedness,no chest pain,no shortness of breath,no palpitations,no edema, andno calf pain with exertion. For lifestyle, patient reportsregular exercise,limiting/avoi ding salt,exercises 5 times/week, andexercises for 90 minutes/day. For medications, patient reportstaking medications as directed,no side effects from medication, andchecks blood pressure at home, range: (under 130/90).tolerating valsartan well without side affect and good adherence. Emergency Department Follow-Up RecordReported by PatientEmergency Room Follow-Up RecordFor discharge information, patient reportsname of ed local urgent care,emergency department discharge date: (please enter in format 'mm/dd/yyyy') (05/26/25), anddate of follow-up phone call: (please enter in format 'mm/dd/yyyy') (06/02/25).Seen at urgent care for fever, chills.Dx with lyme and UTI. on 14 days of doxy and 10 days of cefpodoxime. Recent dx of basal cell. Santos Ferguson MD [address] [facility] [address], [place], [address], [facility] 06/02/2025 15:17:32
--- OUTSIDE RECORDS SUMMARY | 2025-07-04 08:48 | XMS_ITS | Continuity of Care Document ---
Author Organization [facility], Main Office Address [address] [facility] [address] [place] [address] Care Team Providers Care Metal Miner Name Role Phone JUSTEN ORDONEZTd Primary Care Provider KADEN VERDUZCO Urologist [phone] NE[address] WARD Radio Reporter [phone] GISSELL JUAREZ Psychiatrist DAVE VILLANUEVA Aviation Safety Inspector MARY BHARDWAJ Fish Cutter Assessment No assessment recorded. Plan of Treatment Reminders Order Date Submit Date Provider Last Modified By Organization Details Last Modified Time Details Appointments None recorded. Lab None recorded. Referral None recorded. Procedures None recorded. Surgeries None recorded. Imaging electrocard iogram 2024 025 MAYKEL In-Office Order, Internal Use Only DO Not Attach Compendium DO Not Attach Compendium, Do Not Delete/merge, [id number] 14:21:44 Medication Orders None recorded. Patient TargetsNo targets recorded. Patient Instructions Encounter Date Encounter Id Patient Instructions Last Modified By Organization Details Last Modified Time 06/02/2025 [id number] high blood pressure: care instructions ckokar Not available 06/02/2025 14:04:28 learning about high blood pressure ckokar Not available 06/02/2025 14:04:28 Reason for Referral None Reported. Results Created Date Observation Date Name Description Value Unit Range Abnormal Flag Note LastModifiedBy Organization Detail LastModifiedTime 06/02/20 25 06/02/2025 elect ginger lang am No observ ation record ed. [email or web address] In-Office Order Internal Use Only DO Not Attach Compendium DO Not Attach Compendium, Do Not Delete/merge, [id number] 06/02/2025 17:09:53 06/02/20 25 walter lang am No observ ation record ed. [email or web address] In-Office Order Internal Use Only DO Not Attach Compendium DO Not Attach Compendium, Do Not Delete/merge, [id number] 06/02/2025 15:00:13 Result Notes None recorded. 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 1 09:18:01 Acute pharyngi tis 006680593 Completed 200801/31/2014 RECORDED 08/24/19 09 7:30AM BY CARRINGTON BEAVERS ON/ADDEN DUM Not Available [facility] 4 14:37:14 Influenz a vaccine needed 73809290844 06 Completed 200801/31/2014 RECORDED 08/24/19 09 7:29AM BY CARRINGTON BEAVERS ON/ADDEN DUM Not Available [facility] 4 14:37:15 Administ ration of bacteria l and viral vaccine Completed 200801/31/2014 RECORDED 08/24/19 09 8:18AM BY EROS SANTAMARIA, OFFICE VISIT Not Available [facility] 4 14:37:15 Sprains and strains of joints and adjacent muscles Completed 200801/31/2014 RECORDED 08/24/19 09 7:30AM BY CARRINGTON BEAVERS ON/ADDEN DUM Not Available [facility] 4 14:37:16 Acute pharyngi tis 420429417 Completed 200802/27/2014 RECORDED 08/24/19 09 7:30AM BY CARRINGTON BEAVERS ON/ADDEN DUM Not Available [facility] 4 05:33:36 Influenz a vaccine needed 27496474652 06 Completed 200802/27/2014 RECORDED 08/24/19 09 7:29AM BY ERIC BEAVERSATI ON/ADDEN DUM Not Available [facility] 4 05:33:36 Administ ration of bacteria l and viral vaccine Completed 200802/27/2014 RECORDED 08/24/19 09 8:18AM BY EROS SANTAMARIA, OFFICE VISIT Not Available [facility] 4 05:33:36 Sprains and strains of joints and adjacent muscles Completed 200802/27/2014 RECORDED 08/24/19 09 7:30AM BY ERIC BEAVERSATI ON/ADDEN DUM Not Available [facility] 4 05:33:36 Eruption [id number] Completed 200801/31/2014 RECORDED 10/27/19 09 11:00AM BY CARRINGTON BEAVERS ON/ADDEN DUM Not Available [facility] 4 14:37:15 Adult health examinat ion Completed 200801/31/2014 RECORDED 10/27/19 09 11:00AM BY CARRINGTON BEAVERS ON/ADDEN DUM Santos Ordonez MD [address] [address], [facility] [place], [address] , [facility] 3 12:05:14 Eruption [id number] Completed 200802/27/2014 RECORDED 10/27/19 09 11:00AM BY CARRINGTON BEAVERS ON/ADDEN DUM Not Available [facility] 4 05:33:36 Allergic rhinitis 15632682 Completed 200801/31/2014 RECORDED 02/06/20 09 1:08PM BY CARRINGTON HEWITT ON/ADDEN DUM Not Available [facility] 4 14:37:14 Screenin g for malignan t neoplasm of colon Completed 200801/31/2014 RECORDED 02/06/20 09 1:08PM BY CARRINGTON HEWITT ON/ADDEN DUM Santos Ordonez MD [address] [facility] [address], [place], [address] , [facility] 3 12:07:41 Cough 44212252 Completed 200801/31/2014 RECORDED 02/06/20 09 1:08PM BY EROS PERAZA, ANNOTATI ON/ADDEN DUM Not Available [facility] 4 14:37:14 Infectiv e otitis externa 97836899 Completed 200801/31/2014 RECORDED 02/06/20 09 1:08PM BY ERIC HEWITTATI ON/ADDEN DUM Not Available [facility] 4 14:37:15 Malaise and fatigue 146625382 Completed 200801/31/2014 RECORDED 02/06/20 09 1:08PM BY EROS PERAZA, ERICATI ON/ADDEN DUM Not Available [facility] 4 14:37:15 Allergic rhinitis 97743994 Completed 200802/27/2014 RECORDED 02/06/20 09 1:08PM BY EROS PERAZA, ERICATI ON/ADDEN DUM Not Available [facility] 4 05:33:36 Screenin g for malignan t neoplasm of colon Completed 200802/27/2014 RECORDED 02/06/20 09 1:08PM BY EROS PERAZA, ANNOTATI ON/ADDEN DUM Santos Ordonez MD [address] [facility] [address], [place], [address] , [facility] 3 12:07:41 Cough 55857640 Completed 200802/27/2014 RECORDED 02/06/20 09 1:08PM BY ERIC HEWITTATI ON/ADDEN DUM Not Available [facility] 4 05:33:36 Infectiv e otitis externa 71393847 Completed 200802/27/2014 RECORDED 02/06/20 09 1:08PM BY EROS PERAZA, ERICATI ON/ADDEN DUM Not Available [facility] 4 05:33:36 Malaise and fatigue 085034166 Completed 200802/27/2014 RECORDED 02/06/20 09 1:08PM BY EROS PERAZA, ANNOTATI ON/ADDEN DUM Not Available [facility] 4 05:33:36 Palpitat ions 30971828 Completed 200801/31/2014 RECORDED 03/28/20 09 8:45AM BY EROS PERAZA, ANNOTATI ON/ADDEN DUM Not Available [facility] 4 14:37:15 Palpitat ions 76580217 Completed 200802/27/2014 RECORDED 03/28/20 09 8:45AM BY EROS PERAZA, ANNOTATI ON/ADDEN DUM Not Available [facility] 4 05:33:36 Disorder of anterior pituitar y 52607741 Completed 201108/27/2022 Santos Ordonez MD [address], [place], [address] , [facility] 3 12:06:11 Asthma 975057314 Completed 201112/06/2024 Santos Ordonez MD [address], [place], [address] , [facility] 5 13:43:59 Neck pain 97421615 Completed 201108/27/2022 Santos Ordonez MD [address], [place], [address] , [facility] 3 12:06:21 Follow-u p encounte r Completed 201105/21/2021 EROS Rincon, [facility] 1 09:05:59 Injury of knee 721567046 Completed 201105/21/2021 EROS Rincon, [facility] 1 09:06:12 Screenin g for malignan t neoplasm of colon Completed 201108/27/2022 Santos Ordonez MD [address], [place], [address] , [facility] 3 12:07:41 Syncope and collapse 946692725 Completed 201108/27/2022 Santos Ordonez MD [address], [place], [address] , [facility] 3 12:07:53 Pityrias is versicol or 23252139 Completed 201108/27/2022 Santos Ordonez MD [address], [place], [address] , [facility] 3 12:06:36 Adult health examinat ion Completed 201108/27/2022 Santos Ordonez MD [address], [place], [address] , [facility] 3 12:05:14 Anxiety disorder 371447912 Active 2011 EROS Rincon, [facility] 1 09:05:38 Depressi ve disorder 40834681 Active 2011 EROS Rincon, [facility] 1 09:05:48 Bipolar I disorder 137205563 Completed 201112/06/2024 Santos Ordonez MD [address] [facility] [address], [place], [address] , [facility] 5 13:44:18 Harmful pattern of use of alcohol 01902916 Completed 201201/31/2014 IN HIS TEENS; RECORDED 08/23/19 13 1:42AM BY CARRINGTON HINDS/ANSELMO PÉREZ Not Available [facility] 4 14:37:14 Harmful pattern of use of alcohol 52943501 Completed 201202/27/2014 IN HIS TEENS; RECORDED 08/23/19 13 1:42AM BY ALICJA ISAURA, ANNOTATI ON/ADDEN DUM Not Available [facility] 4 05:33:36 Primary malignan t neoplasm of prostate 17225433 Completed 201508/27/2022 Santos Ordonez MD [address], [place], [address] , [facility] 3 12:07:03 Patent foramen ovale 197664553 Active 2020 Santos Ordonez MD [address], [place], [address] , [facility] 1 09:36:36 Testicul ar hypofunc tion 771690992 Active 2022 Santos Ordonez MD [address], [place], [address] , [facility] 3 08:13:52 Family history of malignan t neoplasm of prostate 646554226 Active 2022 Santos Ordonez MD [address], [place], [address] , [facility] 3 12:07:00 Sinus bradycar geetha 98878207 Completed 202212/06/2024 Santos Ordonez MD [address], [place], [address] , [facility] 5 13:45:53 Obstruct radha sleep apnea syndrome 97224390 Active 2023 Santos Ordonez MD [address], [place], [address] , [facility] 4 13:32:32 Hyperhid rosis 552767151 Active 2023 Santos Ordonez MD [address], [place], [address] , [facility] 4 15:24:19 Ex-smoke r 8001351 Active 2023 Santos Ordonez MD [address], [place], [address] , [facility] 4 15:24:42 Acute eczema 883434565 Completed 202412/06/2024 Santos Ordonez MD [address], [place], [address] , [facility] 5 13:43:52 Eczema 38883384 Active 2024 Santos Ordonez MD [address], [place], [address] , [facility] 5 13:43:50 Bipolar II disorder 49948061 Active 2024 Followed by kamini Ordonez MD [address], [place], [address] , [facility] 5 13:44:21 History of malignan t neoplasm of prostate 783490220 Active 2024 Santos Ordonez MD [address], [place], [address] , [facility] 5 13:45:13 Essentia l hyperten christiano 92133318 Active 2024 Santos Ordonez MD [address], [place], [address] , [facility] 5 08:35:28 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 Procedures Surgical History Date Name Laterality Status Provider Name and Address Organization Details Recorded Time 12/07/19 Advanced Care Planning completed Santos Ordonez MD [address], [place], [address], [facility] 12/06/2024 13:55:44 08/13/20 24 revision of penile prosthesis completed Sobia bermudez [place] [facility] 12/06/2024 13:33:52 11/02/19 24 Advanced Care Planning completed Santos Ordonez MD [address] [facility] [address], [place], [address], [facility] 11/02/2023 14:01:01 08/05/19 23 arthroscopy of shoulder completed Sobia bermudez [place] [facility] 08/27/2022 11:43:17 09/21/19 21 Colonoscopy completed Amanda Faith [facility] 07/02/2021 13:58:26 07/20/19 20 implantation of penile prosthesis completed Santos Ordonez MD [address] [facility] [address], [place], [address], [facility] 05/21/2021 09:32:13 07/20/19 19 Prostatectomy (turp) completed Sobia bermudez [place] [facility] 06/25/2021 13:48:07 07/20/19 19 Cancer Surgery completed Sobia bermudez [place] [facility] 06/25/2021 13:47:11 07/20/19 10 Appendectomy completed Sobia bermudez [place] [facility] 06/25/2021 13:47:10 07/20/18 64 tonsillectomy completed Sobia bermudez [place] [facility] 05/21/2021 09:21:51 arthroscopy of shoulder completed Sobia bermudez [place] [facility] 05/21/2021 09:20:58 Knee arthroscopy/surge ry completed Sobia bermudez [place] [facility] 05/21/2021 09:21:37 Imaging Results None recorded. Procedure Notes None recorded. Medical Equipment None Reported. Allergies Allergen ID Allergen Name Allergen Category Reaction Reaction Severity Criticality Documentation Date Start Date Code Code System Note Provider Name and Address Organization Details Recorded Time 91746 No known allergy (situatio n) Not available Not available Not available Not available 02/04/2021 19727 6003 SNOMED Sobia eddy [place] [facility] 09:03:49 No known drug allergies [...] 3.5 mg/mL-10, 000 unit/mL-1 % ear drops,mikael namjayson L EAR 06/16 completed RECORDED 08/18/19 08 [...] 07/22/19 12 1:14PM BY MANJULA HOPSON MD, CARRINGTON ON/ADD DUM; Not Available Not Available Not Available divalproe x 500 mg tablet,de layed release active RECORDED 07/22/19 12 1:14PM BY MANJULA HOPSON MD, CARRINGTON ON/ DUM;1500 AT BEDTIME Not Available Not Available [...] 02/28/20 10 4:34PM BY MANJULA HOPSON MD, CARRINGTON ON/ DUM; Not Available Not Available Not [...] 1 tablet every day by oral route. 11/14 /2025 completed for eczema Not Available Not Available [...] Available Not Available Nasonex 50 mcg/actua tion [place] Q NARES QAM 02/05 completed RECORDED 02/06/20 [...] 12 1:04PM BY MANJULA HOPSON MD, ANNOTATI ON/ADDMACEY DUM; Not Available Not Available Not Available fluoxetin e 20 mg capsule TAKE 1 CAPSULE BY MOUTH EVERY DAY IN THE MORNING active Not Available Not Available No t Available fluticaso ne propionat e 50 mcg/actua tion nasal spray,mikael pension [place] by nasal route. 06/25 completed Not Available [...] 11 1:18PM BY MANJULA HOPSON MD, CARRINGTON ON/ADDEN DUM; [...] Updated DateTime 5 190.5 cm 27.4 kg/m2 22814.1 7 g 74 /min 98 % 99.1 [degF] 120/76 mm[Hg] Snehal Sanchez [facility] 5 13:48:37 Social History Question Answer Notes LastModified by Organizat ion Details LastModified Time Tobacco Smoking Status Former Smoker EROS Izquierdo, [facility] 05/21/2021 09:19:37 Do You Have [...] Time zoster recombinant 9 completed EROS Izquierdo [facility] 06/25/2021 13:59:15 [facility] 13:59:15 COVID-19, mRNA, LNP-S, PF, 30 mcg/0.3 mL dose 1 completed EROS Izquierdo [facility] 05/21/2021 09:34:55 COVID-19, mRNA, LNP-S, PF, 30 mcg/0.3 mL dose 1 [facility] 05[facility]21[facility]21 09:35:07 Influenza, split virus, quadrivalent, PF 6 completed EROS Izquierdo [facility] 06/25/2021 13:59:15 Influenza, MDCK, quadrivalent, PF 8 [facility] 13:59:15 Influenza, split virus, quadrivalent, PF 0 [facility]21 13:59:15 Influenza, MDCK, quadrivalent, PF 9 completed EROS Izquierdo, [facility] 06/25/2021 13:59:15 Influenza, split virus, quadrivalent, PF 7 completed EROS Izquierdo, [facility] 06/25/2021 13:59:15 COVID-19, mRNA, LNP-S, PF, 30 mcg/0.3 mL dose 1 completed EROS Izquierdo [facility] 06/25/2021 14:00:04 Influenza, MDCK, quadrivalent, PF 2 [facility] 08/27[facility]22 11:35:33 Vaccinia, smallpox monkeypox vaccine live, PF, SQ or ID injection 2 completed EROS Izquierdo [facility] 08/27/2022 11:35:33 COVID-19, mRNA, LNP-S, PF, 30 mcg/0.3 mL dose, eva-sucrose 2 completed EROS Izquierdo [facility] 08/27/2022 11:35:34 COVID-19, mRNA, LNP-S, bivalent, PF, 50 mcg/0.5 mL or 25mcg/0.25 mL dose 2 completed EROS Izquierdo [facility] 08/27/2022 11:35:34 Influenza, MDCK, quadrivalent, PF 3 completed Perla Silverman [employer] luke, [facility] 05/08/2023 08:38:42 COVID-19, mRNA, LNP-S, PF, 50 mcg/0.5 mL 3 completed Perla Caporale, [employer] luke, [facility] 05/08/2023 08:38:43 RSV, recombinant, protein subunit RSVpreF, adjuvant reconstituted, 0.5 mL, PF 3 completed EROS Izquierdo, [facility] 09/14/2023 15:00:22 Pneumococcal conjugate PCV20, polysaccharide [id number] conjugate, adjuvant, PF 4 completed EROS Izquierdo, [facility] 02/01/2024 15:46:58 COVID-19, mRNA, LNP-S, PF, eva-sucrose, 30 mcg/0.3 mL 4 completed Not Available [facility] 06/02/2025 13:43:57 MMR 5 completed Not Available [facility] 06/02/2025 13:43:57 COVID-19, mRNA, LNP-S, PF, eva-sucrose, 30 mcg/0.3 mL 5 completed Not Available [facility] 06/02/2025 13:43:57 Influenza, high-dose, trivalent, PF 4 completed Not Available [facility] 06/02/2025 13:43:57 Pneumococcal conjugate PCV20, polysaccharide [id number] conjugate, adjuvant, PF 4 completed Not Available [facility] 06/02/2025 13:43:57 Influenza, high-dose, trivalent, PF 5 completed Not Available [facility] 06/02/2025 13:43:57 Hep B, adult 0 completed Not Available [facility] 06/12/2023 15:07:31 Influenza, split virus, trivalent, preservative 7 completed Not Available [facility] 06/12/2023 15:07:31 Tdap 9 completed Not Available [facility] 06/12/2023 15:07:31 Influenza, split virus, quadrivalent, PF 1 completed Santos Ordonez MD [address], [address], [facility] 05/21/2021 09:37:15 Tdap 1 completed Santos Ordonez MD [address], [address], [facility] 05/21/2021 09:37:15 Past Encounters Encounter ID Performer Location Encounter Start Date Encounter Closed Date Diagnosis/Indication Diagnosis SNOMED-CT Code Diagnosis ICD10 Code Diagnosis IMO Codes Diagnosis Note [id number] Santos Ordonez MD Main Office [address] [facility] [place]OS [place]AUD[place] [address] 06/02/2025 13:42:25 06/02/2025 14:20:10 Essential hypertension 55579815 I10 Low sodium diet discussedb p well controlled will continue current regimen.Co unseled on diet/exerc iseAdvised to keep BP daily BP log and technique counseled. Red flags of HTN emergency discussed and when to go to ED. History of Lyme disease 932177274 Z86.19 9694481 Will check ecg for heartblock , No heart block noted on ECG. Health Concerns Section Related Observation LastModified by Organization Detai ls LastModified Time None Recorded Concern Status LastModified by Organization Details LastModified Time None Recorded Payers Encounter Date Sequence Insurance Name Policy Number Policy David Covered Member ID David Member ID Guarantor Name 06/02/2025 1 [facility]: MEDICARE PPO BLUE (MEDICARE REPLACEMENT PPO) [id number] Benigno Conde [id number] Benigno Conde Notes Date Note Type Note Provider Name and Address Organization Details Recorded Time 06/02/2025 text/html Hypertension F/UReported by PatientHPIFor associated [...] cefpodoxime. Recent dx of basal cell. Santos Ordonez MD [address] [address], [place], [address], [facility] 06/02/2025 15:17:32
--- OUTSIDE RECORDS SUMMARY | 2025-07-04 08:48 | XMS_ITS | Clinical Summary ---
Author Organization [facility] Prior to 12/17/[address] [place] [address] Care Team Providers Care Fluid Power Mechanic Name Role Phone Unavailable Primary Care Provider [...] 2 - PCV) 2023 01/24/2011 COVID-19 Vaccine (4 - season) 2025 05/27/2021, 11/07/2020, 10/17/2020 Influenza Vaccine (#1) 2025 , 04/04/2020, 03/29/2019, Additional history exists DTap [...] Group Subscriber ID Effective Dates Phone Address [facility] [id number] 2017-Abi felix [address] [facility] [address] [place] [address] HMO Benigno Conde Personal/Family Self 1960 ([place]) [address] [place] [address]
--- OUTSIDE RECORDS SUMMARY | 2025-07-04 08:49 | XMS_ITS | Data Portability ---
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 Patient was seen and evaluated by Mickey Vicente PA-C in indirect conjuction with Documenting [...] findings at length with the patient today. We discussed the nature and etiology of this problem along with current treatment options. We discussed the expected course and outcomes and what to expect. We also discussed risks and benefits. All of their questions were answered today, and there was exhibited understanding and comprehension of all that was discussed. Time Spent: 10 minutes were spent reviewing previous imaging and charting. 10 minutes were spent obtaining patient history. 5 minutes were spent on physical exam. 5minutes were spent explaining diagnosis and assessment. Today's documentation was made using voice recognition software. This note may contain grammatical errors secondary to the software. Not available 07/08/2023 07:53:01 03/21/2025 03/21/2025 HPI: 64-year-old [id number] male with bilateral elbow pain right worse than left. It began while lifting and swimming. He is active individual swims every day. He is not sure how he injured he is happy to 3 weeks he has been going to physical therapy has had active release technique which seems to help. Additionally he has some anterior right knee pain that hurts when he goes up and down stairs locally anterior-inferior aspect of his knee. He is retired used to work in [employer] but has since been retired now he spends his time exercising and volunteering. Review of systems as per HPI above. PHYSICAL EXAM: There is full active motion of the shoulders, elbows, and wrists bilaterally. The LEFT elbow has tenderness to palpation over the medial epicondyle. Pain over the flexor pronator mass. Pain with resisted wrist flexion with passive wrist extension with the elbow in the extended position. No pain over the lateral epicondyle, olecranon, radial head, or the DRUJ. No ulnar nerve subluxation. No ulnar nerve symptoms. No elbow instability. Neurovascular exam is intact. Skin is normal. The RIGHT elbow has tenderness to palpation over the medial epicondyle. Pain over the flexor pronator mass. Pain with resisted wrist flexion with passive wrist extension with the elbow in the extended position. No pain over the lateral epicondyle, olecranon, radial head, or the DRUJ. No ulnar nerve subluxation. No ulnar nerve symptoms. No elbow instability. Neurovascular exam is intact. Skin is normal. Focused examination of the right knee was performed. He has tenderness palpation over the inferior pole of the patella over the patellar tendon. He has full knee range of motion stable varus valgus stress testing ligamentous testing negative Noah negative anterior posterior drawer negative Filiberto test IMPRESSION: with RIGHT medial epicondylitis with LEFT medial epicondylitis Right knee patellar tendinitis PLAN: I discussed the treatment options with the patient includin. Living with the symptoms. 2. Continued non-operative management. 3. Surgical intervention. After going over these options and discussing the diagnosis, prognosis, and pathophysiology of medial epicondylitis, I made a strong recommendation for non-operative management. Ideally, this occurs in three phases: 1) Phase 1 consists of cessation of all offending activities and exercises in combination with pain-relieving modalities such as regular icing (cryotherapy), acetaminophen, and NSAIDs. I also discussed counterforce bracing with the strap placed about 2 cm distal to the medial epicondyle to provide compression and unload the common flexor tendon. 2) Phase 2 consists of guided physiotherapy and rehabilitation. A prescription for physical therapy was given with the initial focus on establishing full, painless range of motion. This is followed by stretching and progressive isometric exercises with eventual progression to resistive exercises. 3) Phase 3 focuses on modifications to previously offending activities. Once the patient is able to perform repetitive exercises without discomfort, they are progressed back into sports or occupation-specific activities. At the end of therapy, the patient should begin a maintenance exercise program to continue overall flexibility and decrease the chance of recurrence. I also explained that I do not recommend corticosteroid injections in the management of this clinical entity as they have no difference in alf outcomes. The utility of platelet rich plasma (PRP) injections for this diagnosis is not yet well established. Lastly, I explained that surgery is typically not required in the management of medial epicondylitis. However, if no benefit is seen with appropriate conservative treatment for 6-12 months, surgery in the form of open surgical debridement of the common flexor tendon can be considered but does have a 3-6 month recovery time. In summary, I recommend that the patient is managed with non-operative treatment for their medial epicondylitis with activity modification, relative rest, counterforce bracing, icing, Tylenol/NSAIDs PRN, physical therapy with home exercise program, and gradual return to sport. If no improvement in 3-6 months, injections such as corticosteroid or PRP can be considered. If no improvement in 6-12 months, surgical intervention may be discussed. Physical Therapy: A prescrition for Physical therapy ordered and provided to the patient Recommend BandIT bracing Follow up: Return to clinic in 3 months for repeat clinical evaluation. At the conclusion of the office visit, the patient verbally acknowledged that I answered all of their questions satisfactorily. Not available 03/21/2025 10:00:00 05/23/2025 05/23/2025 HPI: Sal returns to the office today. He flunked physical therapy . He is finished physical therapy his left elbow is better than his right but this was the case prior. He has been taking meloxicam and doing physical therapy he has done 6 weeks of therapy I still has pain with respect to both medial elbow's. His knee pain has improved and. prior ar 64-year-old [id number] male with bilateral elbow pain right worse than left. It began while lifting and swimming. He is active individual swims every day. He is not sure how he injured he is happy to 3 weeks he has been going to physical therapy has had active release technique which seems to help. Additionally he has some anterior right knee pain that hurts when he goes up and down stairs locally anterior-inferior aspect of his knee. He is retired used to work in [employer] but has since been retired now he spends his time exercising and volunteering. Review of systems as per HPI above. PHYSICAL EXAM: There is full active motion of the shoulders, elbows, and wrists bilaterally. The LEFT elbow has tenderness to palpation over the medial epicondyle. Pain over the flexor pronator mass. Pain with resisted wrist flexion with passive wrist extension with the elbow in the extended position. No pain over the lateral epicondyle, olecranon, radial head, or the DRUJ. No ulnar nerve subluxation. No ulnar nerve symptoms. No elbow instability. Neurovascular exam is intact. Skin is normal. The RIGHT elbow has tenderness to palpation over the medial epicondyle. Pain over the flexor pronator mass. Pain with resisted wrist flexion with passive wrist extension with the elbow in the extended position. No pain over the lateral epicondyle, olecranon, radial head, or the DRUJ. No ulnar nerve subluxation. No ulnar nerve symptoms. No elbow instability. Neurovascular exam is intact. Skin is normal. IMPRESSION: with RIGHT medial epicondylitis with LEFT medial epicondylitis Right knee patellar tendinitis, resolving PLAN: Above findings were discussed in detail with patient today. He has bilateral medial condyle lightest. He is on 6 weeks of therapy. In general I advised him that this condition can take 6 months to 2 to 3 years to resolve. Recommended daily stretching eccentric stretching exercise as well as home exercises. Will see him back in 3 months for repeat clinical evaluation. At that point may consider PRP versus corticosteroid injections. Patient verbalized understanding and agreed with the plan prior I discussed the treatment options with the patient includin. Living with the symptoms. 2. Continued non-operative management. 3. Surgical intervention. After going over these options and discussing the diagnosis, prognosis, and pathophysiology of medial epicondylitis, I made a strong recommendation for non-operative management. Ideally, this occurs in three phases: 1) Phase 1 consists of cessation of all offending activities and exercises in combination with pain-relieving modalities such as regular icing (cryotherapy), acetaminophen, and NSAIDs. I also discussed counterforce bracing with the strap placed about 2 cm distal to the medial epicondyle to provide compression and unload the common flexor tendon. 2) Phase 2 consists of guided physiotherapy and rehabilitation. A prescription for physical therapy was given with the initial focus on establishing full, painless range of motion. This is followed by stretching and progressive isometric exercises with eventual progression to resistive exercises. 3) Phase 3 focuses on modifications to previously offending activities. Once the patient is able to perform repetitive exercises without discomfort, they are progressed back into sports or occupation-specific activities. At the end of therapy, the patient should begin a maintenance exercise program to continue overall flexibility and decrease the chance of recurrence. I also explained that I do not recommend corticosteroid injections in the management of this clinical entity as they have no difference in alf outcomes. The utility of platelet rich plasma (PRP) injections for this diagnosis is not yet well established. Lastly, I explained that surgery is typically not required in the management of medial epicondylitis. However, if no benefit is seen with appropriate conservative treatment for 6-12 months, surgery in the form of open surgical debridement of the common flexor tendon can be considered but does have a 3-6 month recovery time. In summary, I recommend that the patient is managed with non-operative treatment for their medial epicondylitis with activity modification, relative rest, counterforce bracing, icing, Tylenol/NSAIDs PRN, physical therapy with home exercise program, and gradual return to sport. If no improvement in 3-6 months, injections such as corticosteroid or PRP can be considered. If no improvement in 6-12 months, surgical intervention may be discussed. Physical Therapy: A prescrition for Physical therapy ordered and provided to the patient Recommend BandIT bracing Follow up: Return to clinic in 3 months for repeat clinical evaluation. At the conclusion of the office visit, the patient verbally acknowledged that I answered all of their questions satisfactorily. Not available 05/23/2025 14:09:01 Plan of Treatment Reminders Order Date Submit Date Provider Last Modified By Organization Details Last Modified Time Details Appointments ESTABLISH ED/NEW PROBLEM 2024 08:30A M MICKEY NUÑEZ PA-C Not available Not available Not available FOLLOW UP 2025 01:30P M David Seo MD Not available Not available Not available Lab None recorded. Referral physical therapist referral - medial & lateral epicondyl itis 2-3x per week for 12 weeks epicondyl ar muscle strengthe urban exercises , mobilizat ion, stretchin g, and deep friction massage. Modalitie s as indicated PHASE I: - Use modalitie s as needed to reduce pain, swelling, and inflammat ion (i.e., ice, heat /cold contrast, - phonophor esis, electrica l stimulati on, etc.). - Use a brace (i.e., cock up splint, counterfo rce brace) as needed. - Wrist flexion and extension stretches MEDIAL EPICONDYL ITIS - Strengthe urban exercises : - Wrist extension - Supinatio n - Biceps curls - Triceps extension s - Radial deviation - Putty squeeze (wrist in neutral) NOTE: Avoid strengthe urban the flexor mass muscle group during this initial phase to allow for healing at the medial epicondyl e. LATERAL EPICONDYL ITIS - Strengthe urbna exercises : - Wrist flexion - Pronation - Biceps curls - Triceps extension s - Ulnar deviation - Putty squeeze (in extension ) NOTE: Avoid strengthe urban the extensor mass muscle group during this initial phase to allow for healing at the lateral epicondyl e. - Apply ice after each session PHASE II: - Continue use of modalitie s as needed. - Continue wrist flexion and extension stretchin g exercises . - Apply ice after each session. MEDIAL EPICONDYL ITIS - Add the following strengthe urban exercises : - Putty finger flexion - Wrist flexion - Upper body ergometer LATERAL EPICONDYL ITIS - Add the following strengthe urban exercises : - Putty finger extension - Wrist extension - Upper body ergometer PHASE III: - Progress to increased resistanc e during putty squeezes, - Add upper extremity strengthe urban exercises as tolerated . - Add isokineti c training exercises as needed. - Progress with upper body ergometer as tolerated . - Gradually add sport or work related functiona l drills to prepare for return to former sports or activity. - Apply ice as needed. 2024 025 Not available 05/23/2025 14:08:31 physical therapist referral - medial & lateral epicondyl itis 2-3x per week for 12 weeks epicondyl ar muscle strengthe urban exercises , mobilizat ion, stretchin g, and deep friction massage. Modalitie s as indicated PHASE I: - Use modalitie s as needed to reduce pain, swelling, and inflammat ion (i.e., ice, heat /cold contrast, - phonophor esis, electrica l stimulati on, etc.). - Use a brace (i.e., cock up splint, counterfo rce brace) as needed. - Wrist flexion and extension stretches MEDIAL EPICONDYL ITIS - Strengthe urban exercises : - Wrist extension - Supinatio n - Biceps curls - Triceps extension s - Radial deviation - Putty squeeze (wrist in neutral) NOTE: Avoid strengthe urban the flexor mass muscle group during this initial phase to allow for healing at the medial epicondyl e. LATERAL EPICONDYL ITIS - Strengthe urban exercises : - Wrist flexion - Pronation - Biceps curls - Triceps extension s - Ulnar deviation - Putty squeeze (in extension ) NOTE: Avoid strengthe urban the extensor mass muscle group during this initial phase to allow for healing at the lateral epicondyl e. - Apply ice after each session PHASE II: - Continue use of modalitie s as needed. - Continue wrist flexion and extension stretchin g exercises . - Apply ice after each session. MEDIAL EPICONDYL ITIS - Add the following strengthe urban exercises : - Putty finger flexion - Wrist flexion - Upper body ergometer LATERAL EPICONDYL ITIS - Add the following strengthe urban exercises : - Putty finger extension - Wrist extension - Upper body ergometer PHASE III: - Progress to increased resistanc e during putty squeezes, - Add upper extremity strengthe urban exercises as tolerated . - Add isokineti c training exercises as needed. - Progress with upper body ergometer as tolerated . - Gradually add sport or work related functiona l drills to prepare for return to former sports or activity. - Apply ice as needed. 2024 025 Not available 03/21/2025 09:58:22 Procedures None recorded. Surgeries None recorded. Imaging XR, elbow, 3 or more view 2024 025 [email or web address], [address], [place], [address], 04/11/2025 16:47:04 XR, elbow, 3 or more view 2024 025 [email or web address], [address], [place], [address], 04/11/2025 16:47:04 Medication Orders meloxicam 15 mg tablet 2024 025 [facility], [address] [facility], [place], [address], 03/21/2025 09:57:48 lidocaine (PF) 100 mg/5 mL (2 %) injection syringe 2022 Not available 07/07/2023 16:08:52 Kenalog 40 mg/mL suspensio n for injection 2022 023 [facility], [address] [place], [address], 07/08/2023 07:56:30 lidocaine (PF) 10 mg/mL (1 %) injection solution 2022 023 [facility], [address] [place], [address], 07/08/2023 07:56:29 Patient TargetsNo targets recorded. Patient Instructions Encounter Date Encounter Id Patient Instructions Last Modified By Organization Details Last Modified Time 07/07/2023 [id number] You have been provided with a cortisone [...] hours following the injection. This is called star mitchell . To help minimize the chances of [...] acute bony abnormality.. Not available 07/08/2023 07:53:52 03/21/2025 [id number] tennis elbow: exercises Not available 03/21/2025 09:57:46 Imaging: RIGHT elbow three view radiographs including AP, oblique, and lateral views were ordered by me, obtained today, reviewed with the patient, and independently interpreted by me as demonstrating a concentrically reduced ulnohumeral joint and radiocapitellar joint without any evidence of fracture, dislocation, arthritis, calcification, joint effusion, or other acute osseous abnormalities. Mild narrowing of the ulnohumeral joint Imaging: LEFT elbow three view radiographs including AP, oblique, and lateral views were ordered by me, obtained today, reviewed with the patient, and independently interpreted by me as demonstrating a concentrically reduced ulnohumeral joint and radiocapitellar joint without any evidence of fracture, dislocation, arthritis, calcification, joint effusion, or other acute osseous abnormalities. Not available 03/21/2025 09:59:16 05/23/2025 [id number] tennis elbow: exercises Not available 05/23/2025 14:07:21 Reason for Referral Physical Therapist Referral for Bilateral medial epicondylitis of elbows medial & lateral epicondylitis2-3x per week for 12 weeksepicondylar muscle strengthening exercises, mobilization, stretching, and deep friction massage.Modalities as indicatedPHASE I: - Use modalities as needed to reduce pain, swelling, and inflammation (i.e., ice, heat /cold contrast, - phonophoresis, electrical stimulation, etc.). - Use a brace (i.e., cock up splint, counterforce brace) as needed. - Wrist flexion and extension stretches MEDIAL EPICONDYLITIS - Strengthening exercises: - Wrist extension- Supination - Biceps curls- Triceps extensions - Radial deviation- Putty squeeze (wrist in neutral) NOTE: Avoid strengthening the flexor mass muscle group during this initial phase to allow for healing at the medial epicondyle. LATERAL EPICONDYLITIS - Strengthening exercises: - Wrist flexion- Pronation - Biceps curls- Triceps extensions - Ulnar deviation- Putty squeeze (in extension) NOTE: Avoid strengthening the extensor mass muscle group during this initial phase to allow for healing at the lateral epicondyle. - Apply ice after each session PHASE II: - Continue use of modalities as needed. - Continue wrist flexion and extension stretching exercises. - Apply ice after each session. MEDIAL EPICONDYLITIS - Add the following strengthening exercises: - Putty finger flexion - Wrist flexion - Upper body ergometer LATERAL EPICONDYLITIS - Add the following strengthening exercises: - Putty finger extension - Wrist extension - Upper body ergometer PHASE III: - Progress to increased resistance during putty squeezes, - Add upper extremity strengthening exercises as tolerated. - Add isokinetic training exercises as needed. - Progress with upper body ergometer as tolerated. - Gradually add sport or work related functional drills to prepare for return to former sports or activity. - Apply ice as needed. Referring Physician: Patricio Seo, Orthopedic Surgery, Encounter Date: 03/21/2025 Physical Therapist Referral for Bilateral medial epicondylitis of elbows medial & lateral epicondylitis2-3x per week for 12 weeksepicondylar muscle strengthening exercises, mobilization, stretching, and deep friction massage.Modalities as indicatedPHASE I: - Use modalities as needed to reduce pain, swelling, and inflammation (i.e., ice, heat /cold contrast, - phonophoresis, electrical stimulation, etc.). - Use a brace (i.e., cock up splint, counterforce brace) as needed. - Wrist flexion and extension stretches MEDIAL EPICONDYLITIS - Strengthening exercises: - Wrist extension- Supination - Biceps curls- Triceps extensions - Radial deviation- Putty squeeze (wrist in neutral) NOTE: Avoid strengthening the flexor mass muscle group during this initial phase to allow for healing at the medial epicondyle. LATERAL EPICONDYLITIS - Strengthening exercises: - Wrist flexion- Pronation - Biceps curls- Triceps extensions - Ulnar deviation- Putty squeeze (in extension) NOTE: Avoid strengthening the extensor mass muscle group during this initial phase to allow for healing at the lateral epicondyle. - Apply ice after each session PHASE II: - Continue use of modalities as needed. - Continue wrist flexion and extension stretching exercises. - Apply ice after each session. MEDIAL EPICONDYLITIS - Add the following strengthening exercises: - Putty finger flexion - Wrist flexion - Upper body ergometer LATERAL EPICONDYLITIS - Add the following strengthening exercises: - Putty finger extension - Wrist extension - Upper body ergometer PHASE III: - Progress to increased resistance during putty squeezes, - Add upper extremity strengthening exercises as tolerated. - Add isokinetic training exercises as needed. - Progress with upper body ergometer as tolerated. - Gradually add sport or work related functional drills to prepare for return to former sports or activity. - Apply ice as needed. Referring Physician: Patricio Seo, Orthopedic Surgery, Encounter Date: 05/23/2025 Problems Name Problem SNOMED Code Status Onset Date Resolution Date Notes Provider Name and Address Organization Details Recorded Time Pain of left shoulder region Active 2016 Left shoulder pain Not Available [facility] 5 23:18:39 Arthritis of right knee joint 76935913328 91322 Active 2017 Arthritis of right knee Not Available [facility] 5 23:18:39 Arthritis of left knee joint 97027221744 84184 Active 2017 Arthritis of knee, left Not Available [facility] 5 23:32:23 Patellofe moral syndrome of right knee 24023583986 67213 Active 2022 MICKEY VICENTE PA-C [address], [place], [address] , [place] [facility] 3 07:54:30 Lateral epicondyl itis 423778123 Active 2024 Patricio Seo MD [address], [place], [address] , [place] - [facility], [facility] 5 09:57:13 Bilateral medial epicondyl itis of elbows 41880627595 051423 Active 2024 Patricio Seo MD [address], [place], [address] , [place] [facility], [facility] 5 09:57:27 Tendiniti s of right patellar tendon 67455192200 9109 Active 2024 Patricio Seo MD [address], [place], [address] , [place] - [facility], [facility] 5 09:57:52 Pain of elbow region 87235417 Active 2024 Patricio Seo MD [address] [facility] [address], [place], [address] , [place] - [facility], P 14:07:13 Problem Notes None recorded. Procedures Surgical History Date Name Laterality Status Provider Name and Address Organization Details Recorded Time 07/07/20 Knee Joint/Bursa Asp & Inj completed MICKEY VICETNE PA-C [address] [facility] [address], [place], [address], [place] - [facility], P 07/08/2023 07:57:21 Shoulder Surgery completed [facility] - [facility], P 07/07/2023 16:11:34 prostatectomy completed [facility] - [facility], P 07/07/2023 16:11:46 Appendectomy completed [facility] - [facility], P 07/07/2023 16:12:00 Imaging Results None recorded. Procedure Notes None recorded. Medical Equipment None Reported. Allergies No known drug allergies Medications Name Sig Start Date Stop Date Status Note LastModified by Organization Details LastModified Time doxycycline hyclate 100 mg capsule TAKE 2 CAPSULES BY MOUTH WITHIN 72 hours AFTER unprotect ed intercour se, TAKE WITH FOOD active Not Available Not Available No t Available cefpodoxime 200 mg tablet TAKE 1 TABLET (ORAL) 2 TIMES PER DAY FOR 10 DAYS MUST ADMINISTE R WITH A MEAL/FOOD 07/03 completed Not Available Not Available Not Available meloxicam 15 mg tablet Take 1 tablet every day by oral route. 2024 active Not Available Not Available Not Avai lable fluorouraci l 5 % topical cream 07/07 completed Not Available Not Available Not Available clonazepam 1 mg tablet clonazepa m 1 mg tablet active Not Available Not Available No t Available lithium carbonate 150 mg capsule TAKE 1 TABLET EVERY MORNING 2016 active Not Available Not Available Not Avai lable lithium carbonate ER 450 mg tablet,exte nded release TAKE 1 TABLET EVERY MORNING 2017 active Not Available Not Available Not Avai lable Kenalog 40 mg/mL suspension for injection Take 1 mL by injection route. 2022 active Not Available Not Available Not Avai lable oxycodone-a cetaminophe n 5 mg-325 mg tablet Take 1-2 tabs every 4 hours as needed for pain following your right shoulder surgery 07/07 completed Not Available Not Available Not Available trazodone 100 mg tablet 2022 active Not Available Not Available Not Avai lable methylpredn isolone acetate 40 mg/mL suspension for injection 03/04 completed Not Available Not Available Not Available fluoxetine 10 mg capsule Take 10 mg by mouth daily. in the morning 2017 active Not Available Not Available Not Avai lable folic acid 1 mg tablet Take 1 mg by mouth daily. active Not Available Not Available No t Available mupirocin 2 % topical ointment 07/07 completed Not Available Not Available Not Available lorazepam 1 mg tablet active Not Available Not Available No t Available testosteron e cypionate 200 mg/mL intramuscul ar oil INJET 0.5ML INTRAMUSC ULARLY ONCE A WEEK DIRECTED active Not Available Not Available No t Available albuterol sulfate HFA 90 mcg/actuati on aerosol inhaler active Not Available Not Available Not Available fluoxetine 20 mg capsule active Not Available Not Available Not Available doxycycline hyclate 100 mg tablet TAKE 1 TABLET BY MOUTH TWICE A DAY FOR 14 DAYS 07/03 completed Not Available Not Available Not Available aripiprazol e 10 mg tablet TAKE 1 TABLET EVERY MORNING active Not Available Not Available No t Available emtricitabi ne 200 mg-tenofovi r disoproxil fumarate 300 mg tablet TAKE 1 TABLET BY MOUTH DAILY active Not Available Not Available No t Available lidocaine (PF) 10 mg/mL (1 %) injection solution Take 2 mL by injection route. 2022 active Not Available Not Available Not Avai lable hylan g-f 20 48 mg/6 mL intra-artic ular syringe 03/12 completed Not Available Not Available Not Available lidocaine (PF) 100 mg/5 mL (2 %) injection syringe Take 2 mL by injection route. 07/07 completed Not Available Not Available Not Available Vitals Date Recorded Body height Body mass index (BMI) Body weight Provider Name and Address Organization Details Last Updated DateTime 07/07/2023 193.04 cm 26.8 kg/m2 65104.[address] [place] [facility] 07/07/2023 16:09:47 Social History None recorded. Functional Status Question Answer Note LastModified by Organizat ion Details LastModified Time Do you use any illicit or recreational drugs? No Information not available 07/07/2023 Do you or have you ever used any other forms of tobacco or nicotine? No Information not available 07/07/2023 What is your level of alcohol consumption? None Information not available 07/07/2023 Mental Status None recorded. Family History Relationship [...] ICD10 Code Diagnosis IMO Codes Diagnosis Note [id number] [facility] [address] [facility] [address] [place] [address] 07/07/2023 14:32:38 07/07/2023 15:13:58 Pain of right knee joint 4716335014 03552 M25.561 Osteoarthr itis of right knee joint 9473404541 53777 M17.11 Patellofem oral syndrome of right knee [id number] 744554 M22.2X1 [id number] MD JOSEY Colón [address] [facility] [address] [place] [address] 03/21/2025 09:09:15 03/21/2025 09:57:12 Pain of elbow region 11616214 M25.521 M25.522 [id number] Bilateral medial epicondylitis of elbows 0180668506 9952198 M77.01 M77.02 [id number] Tendinitis of right patellar tendon 9961511237 27196 M76.51 [id number] MD JOSEY Colón ld [address] [facility] [address] [place] [address] 05/23/2025 13:35:07 05/23/2025 14:07:09 Bilateral medial epicondylitis of elbows [id number] 8623255 M77.01 M77.02 [id number] Pain of elbow region 743 11792 M25.521 M25.522 587910 756691 Tendinitis of right patellar tendon 2028017701 20892 M76.51 [id number] Health Concerns Section Related Observation LastModified by Organization Detai ls LastModified Time None Recorded Concern Status LastModified by Organization Details LastModified Time None Recorded Advance Directives Directive None Recorded Payers Insurance Date Sequence Insurance Name Policy Number Policy David Covered Member ID David Member ID Guarantor Name 07/03/2025 1 [facility]: MEDICARE PPO BLUE (MEDICARE REPLACEMENT PPO) [id number] Benigno Conde Jr [id number] Benigno Conde 03/21/2025 1 [facility] [id number] Benigno Conde Jr [id number] Benigno Conde 03/21/2025 1 [facility] (HMO) [id number] Benigno Conde Jr [id number] Benigno Conde Notes Date Note Type Note Provider Name and Address Organization Details Recorded Time 07/07/2023 text/html This is a pleasant 62-year-old male here for evaluation of right knee pain onset of symptoms within the last 7 days. He states going up stairs is more painful for which she describes underneath his kneecap. He denies any trauma denies any twisting injury here for evaluation and treatment. States has been taking [id number] pain medication with minimal relief. He denies any swelling denies any redness denies any fevers or chills or instability symptoms. He also denies any calf pain. X-ray of the right knee reveals overall well-maintained joint space mild patellofemoral joint space narrowing no acute bony abnormality.. MICKEY VICENTE PA-C [address] [facility] [address], [place], [address], [place] - [facility] 07/08/2023 07:57:48
== END 2025-07-04 08:26 | disposition home or self-care (01) ==
LOC: HO.BBR 08:25
PROVIDERS: PCP Family Medicine; Visit Provider Urology
DX: D75.1 Secondary polycythemia (principal)
CPT/HCPCS: 85018